=== PATIENT | male | born 1930 | race Caucasian/White ===

== ENCOUNTER 2017-04-27 16:47 | Emergency (ER) | payer MEDICARE, BC ==
--- NOTE | 2017-04-27 18:14 | EDM.PDOC ---
ED HPI GENERAL MEDICAL PROBLEM - General Chief Complaint: Cardiovascular Problem Stated Complaint: dizziness Time Seen by Provider: 04/27/17 17:00 Source of Information: Reports: Patient History Limitations: Reports: No Limitations - History of Present Illness INITIAL COMMENTS - FREE TEXT/NARRATIVE: According to patient, he was at gas station today evening to pickup some water softener. When he felt dizzy. He describes that he felt things going blurry for just less than a minute and felt discomfort in his left chest, there was mild dull pain and it resolve. No palpitations, no shortness of breath. No fever or chills. No cough.As patient does have history of heart disease and is having pacemaker, came into the emergency room to be evaluated. Presently he is not feeling dizzy or having any chest pain. he claims he feels fine. Pt claims that he had similar episode of dizziness yesterday when he was standing and was very transient. Onset: Today Onset Date: 04/27/17 Onset Time: 16:30 Severity: Mild Improves with: Reports: None Worsens with: Reports: None Associated Symptoms: Reports: Chest Pain. Denies: Confusion, Cough, Diaphoresis , Fever/Chills, Headaches, Nausea/Vomiting, Rash, Seizure, Shortness of Breath, Syncope, Weakness - Related Data Allergies Allergy/AdvReac Type Severity Reaction Status Date / Time No Known Allergies Allergy Verified 12/16/15 14:23 Home Meds: Home Meds Metoprolol Tartrate [Lopressor] 50 mg PO BID 10/08/14 [History] amLODIPine Besylate [Amlodipine Besylate] 5 mg PO DAILY 10/08/14 [History] Aspirin [Ecotrin] 81 mg PO DAILY 11/04/15 [History] Tamsulosin [Flomax] 0.4 mg PO DAILY 11/04/15 [History] Past Medical History HEENT History: Reports: Impaired Vision Cardiovascular History: Reports: Hypertension, Pacemaker Respiratory History: Reports: None Other Gastrointestinal History: Cholescystitis Genitourinary History: Reports: Retention, Urinary, UTI, Recurrent Other Genitourinary History: Cystitis Musculoskeletal History: Reports: RA Oncologic (Cancer) History: Reports: None - Infectious Disease History Infectious Disease History: Reports: Chicken Pox, Measles, Mumps - Past Surgical History Other HEENT Surgeries/Procedures: Occular Lens Implant x2. hearing well per patient Cardiovascular Surgical History: Reports: Pacer Other Cardiovascular Surgeries/Procedures: pacemaker noted GI Surgical History: Reports: Cholecystectomy Male Surgical History: Reports: None Musculoskeletal Surgical History: Reports: None Social & Family History - Family History Family Medical History: Noncontributory - Tobacco Use Smoking Status *Q: Never Smoker Years of Tobacco use: 20 Second Hand Smoke Exposure: No - Alcohol Use Days Per Week of Alcohol Use: 3 Number of Drinks Per Day: 3 Total Drinks Per Week: 9 - Recreational Drug Use Recreational Drug Use: No - Living Situation & Occupation Living situation: Reports: Occupation: Retired ED ROS GENERAL - Review of Systems Review Of Systems: See Below Constitutional: Denies: Fever, Chills HEENT: Denies: Rhinitis, Sinus Problem, Throat Pain Respiratory: Denies: Shortness of Breath, Wheezing, Pleuritic Chest Pain, Cough , Sputum Cardiovascular: Reports: Chest Pain, Lightheadedness. Denies: Edema, Syncope GI/Abdominal: Denies: Abdominal Pain, Nausea, Vomiting : Denies: Dysuria, Flank Pain Musculoskeletal: Denies: Shoulder Pain, Arm Pain, Back Pain, Joint Pain, Joint Swelling Skin: Denies: Bruising, Pruritis, Rash, Erythema ED EXAM, GENERAL - Physical Exam Exam: See Below Exam Limited By: No Limitations General Appearance: Alert, WD/WN, No Apparent Distress Eye Exam: Bilateral Eye: EOMI, PERRL Ears: Normal External Exam, Normal Canal, Hearing Grossly Normal, Normal TMs Ear Exam: Bilateral Ear: Auricle Normal, Canal Normal, TM normal Nose: Normal Inspection, Normal Mucosa, No Blood Throat/Mouth: Normal Inspection, Normal Lips, Normal Teeth, Normal Gums, Normal Oropharynx, Normal Voice, No Airway Compromise Head: Atraumatic, Normocephalic Neck: Normal Inspection, Supple, Non-Tender, Full Range of Motion Respiratory/Chest: No Respiratory Distress, Lungs Clear, Normal Breath Sounds, No Accessory Muscle Use, Chest Non-Tender Cardiovascular: Normal Peripheral Pulses, Regular Rate, Rhythm, No Edema, No Gallop, No JVD, No Murmur, No Rub GI/Abdominal: Normal Bowel Sounds, Soft, Non-Tender, No Organomegaly, No Distention, No Abnormal Bruit, No Mass Extremities: Normal Inspection, Normal Range of Motion, Non-Tender, Normal Capillary Refill, No Pedal Edema Neurological: Alert, Oriented, CN II-XII Intact, Normal Cognition, Normal Gait, Normal Reflexes, No Motor/Sensory Deficits EKG INTERPRETATION EKG Date: 04/27/17 Rhythm: Other (Paced rhythm. rate between 60-70) EKG Interpretation Comments: Pt in pace rhythm rate between 60-70 Course - Vital Signs Text/Narrative:: Pt's EKG shows normal paced rhythm with heart rate between 60-70 beats. His CBC is normal. Troponin is negative.His Chest Xray is stable. CMP is normal. His D- dimer is 1060. Pt does not feel shortness of breath and does not have pleuritic chest pain nor in any discomfort presently. 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 Spouse claims they know about it. Pt claims he will be going to [place] in few days and his caving guide is down in [place]. Copy of CT given to patient and followup with his caving guide. Pt reassured that his short spell of dizziness could be slight drop in blood pressure.All his workup is negative. Last Recorded V/S: Last Vital Signs Temp 97 F 04/27/17 18:29 Pulse 97 04/27/17 18:29 Resp 16 04/27/17 18:29 BP 132/87 04/27/17 18:29 Pulse Ox 100 04/27/17 18:29 - Orders/Labs/Meds Orders: Active Orders 24 hr Category Date Time Status Chest 1V Frontal [CR] Stat Exams 04/27/17 16:50 Ordered Chest w Cont [CT] Stat Exams 04/27/17 18:00 Taken Labs: Laboratory Tests 04/27/17 04/27/17 04/27/17 Range/Units 17:00 17:00 17:00 WBC 9.7 (4.0-11.0) K/uL RBC 5.32 (4.50-6.50) M/uL Hgb 16.3 (13.0-18.0) g/dL Hct 46.6 (40.0-54.0) % MCV 88 (76-96) fL MCH 30.6 (27.0-32.0) pg MCHC 35.0 (31.0-35.0) g/dL RDW 12.6 (11.0-16.0) % Plt Count 223 (150-400) K/uL MPV 10.1 H (6.0-10.0) fL Neut % (Auto) 52.9 (45.0-70.0) % Lymph % (Auto) 34.0 (20.0-40.0) % [place] % (Auto) 11.6 H (3.0-10.0) % Eos % (Auto) 1.1 (1.0-5.0) % Baso % (Auto) 0.4 (0.0-0.5) % Neut # (Auto) 5.13 (2.00-7.50) K/uL Lymph # (Auto) 3.29 (1.50-4.00) K/uL [place] # (Auto) 1.12 H (0.20-0.80) K/uL Eos # (Auto) 0.11 (0.04-0.40) K/uL Baso # (Auto) 0.04 (0.02-0.10) K/uL PT 10.2 (9.0-11.5) sec INR 1.0 (1.0-3.5) D-Dimer, Quantitative (0-400) ng/mL Sodium 140 (136-145) mmol/L Potassium 3.7 (3.5-5.1) mmol/L Chloride 104 (98-107) mmol/L Carbon Dioxide 25.4 (21.0-32.0) mmol/L Anion Gap 14.3 (5.0-15.0) mmol/L BUN 21 (8-26) mg/dL Creatinine 1.19 (0.70-1.30) mg/dL Est Cr Clr Drug Dosing TNP Estimated GFR (MDRD) 58 L (>60) MLS/MIN BUN/Creatinine Ratio 17.6 (6-25) Glucose 140 H (74-100) mg/dL Calcium 9.2 (8.5-10.1) mg/dL Total Bilirubin 0.4 D (0.0-1.0) mg/dL AST 20 (15-37) U/L ALT 24 (12-78) U/L Alkaline Phosphatase 106 (46-116) U/L Troponin I (0.000-0.060) ng/mL Total Protein 6.7 (6.4-8.2) g/dL Albumin 3.4 (3.4-5.0) g/dL Globulin 3.3 (2.2-4.2) g/dL Albumin/Globulin Ratio 1.0 (0.8-2.0) 04/27/17 04/27/17 Range/Units 17:00 17:00 WBC (4.0-11.0) K/uL RBC (4.50-6.50) M/uL Hgb (13.0-18.0) g/dL Hct (40.0-54.0) % MCV (76-96) fL MCH (27.0-32.0) pg MCHC (31.0-35.0) g/dL RDW (11.0-16.0) % Plt Count (150-400) K/uL MPV (6.0-10.0) fL Neut % (Auto) (45.0-70.0) % Lymph % (Auto) (20.0-40.0) % [place] % (Auto) (3.0-10.0) % Eos % (Auto) (1.0-5.0) % Baso % (Auto) (0.0-0.5) % Neut # (Auto) (2.00-7.50) K/uL Lymph # (Auto) (1.50-4.00) K/uL [place] # (Auto) (0.20-0.80) K/uL Eos # (Auto) (0.04-0.40) K/uL Baso # (Auto) (0.02-0.10) K/uL PT (9.0-11.5) sec INR (1.0-3.5) D-Dimer, Quantitative 1060 H (0-400) ng/mL Sodium (136-145) mmol/L Potassium (3.5-5.1) mmol/L Chloride (98-107) mmol/L Carbon Dioxide (21.0-32.0) mmol/L Anion Gap (5.0-15.0) mmol/L BUN (8-26) mg/dL Creatinine (0.70-1.30) mg/dL Est Cr Clr Drug Dosing Estimated GFR (MDRD) (>60) MLS/MIN BUN/Creatinine Ratio (6-25) Glucose (74-100) mg/dL Calcium (8.5-10.1) mg/dL Total Bilirubin (0.0-1.0) mg/dL AST (15-37) U/L ALT (12-78) U/L Alkaline Phosphatase (46-116) U/L Troponin I < 0.017 (0.000-0.060) ng/mL Total Protein (6.4-8.2) g/dL Albumin (3.4-5.0) g/dL Globulin (2.2-4.2) g/dL Albumin/Globulin Ratio (0.8-2.0) Departure - Departure Time of Disposition: 21:40 Disposition: Home, Self-Care 01 Condition: Fair Clinical Impression: Dizziness Referrals: PCP,None [Primary Care Provider] - Forms: ED Department Discharge Care Plan Goals: If dizziness occurs, drink water and sit down. If no relief in 4 minutes then return to physician or ER. - Problem List & Annotations (1) Dizziness SNOMED Code(s): 637730454 Code(s): R42 - DIZZINESS AND GIDDINESS Status: Acute - Problem List Review Problem List Initiated/Reviewed/Updated: Yes - My Orders Last 24 Hours: My Active Orders 04/27/17 18:00 Chest w Cont [CT] Stat - Assessment/Plan Last 24 Hours: My Active Orders 04/27/17 18:00 Chest w Cont [CT] Stat Assessment:: Dizziness Plan: Pt's EKG shows normal paced rhythm with heart rate between 60-70 beats. His CBC is normal. Troponin is negative.His Chest Xray is stable. CMP is normal. His D- dimer is 1060. Pt does not feel shortness of breath and does not have pleuritic chest pain nor in any discomfort presently. 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 Spouse claims they know about it. Pt claims he will be going to [place] in few days and his caving guide is down in [place]. Copy of CT given to patient and followup with his caving guide. Pt reassured that his short spell of dizziness could be slight drop in blood pressure.All his workup is negative.
[2017-04-27 18:33] VITALS: BP 132/87
--- NOTE | 2017-04-27 22:58 | ER ---
HISTORY OF PRESENT ILLNESS: An 86-year-old male, who comes to the emergency room with complaints of dizziness that just happened this afternoon and occasional left shoulder discomfort. The patient denies any pain at this time while at rest and states that he feels fine now that he is lying down. He has not had any complaints of chest pain. He has not been nauseated. The patient has not been running a fever. He states that he has been feeling good. He does have a pacemaker. PAST MEDICAL HISTORY: Includes history of syncope, pyelonephritis, and heart arrhythmias. OBJECTIVE: GENERAL APPEARANCE: The patient is awake and alert. In no obvious distress. VITAL SIGNS: His initial vital signs are normal. LUNGS: Clear with a somewhat reduced air exchange throughout the lung acuna. CARDIAC: Heart sounds are distinct with an irregular rate. HEENT: Oral mucous membranes are slightly dry. SKIN: Warm and dry. ABDOMEN: Soft and nontender. INITIAL WORKUP: monitor car operator shows an irregular beat. I am wondering if his pacemaker is working properly. EKG was obtained. There is no sign of ST elevation. The patient's pulse has been ranging from the 40s to 80s while being observed. Further tests include CBC, CMP, troponin, D-dimer, and a PT/INR. We will also get a PA chest x-ray. ASSESSMENT AND PLAN: At this point, my shift is ending. I did consult with Dr. Saucedo, who will assume care for this patient. For further details, refer to Dr. Saucedo's dictation. WORKING DIAGNOSIS: Dizziness, rule out coronary etiology. CRS/MODL /[id number]
[2017-04-29] MEDS ORDERED: Sodium Chloride 0.9% 10 ML Syringe FLUSH PRN (09:07)
--- NOTE | 2017-04-29 11:57 | CT ---
DATE OF SERVICE: 04/27/17 CLINICAL DATA: Elevated D-dimer with chest pain ENHANCED CHEST CT Multislice acquisition through the chest with IV contrast was performed. No priors. No evidence of PE. No pneumothorax. No pleural effusions. No aortic aneurysm. There are mild atelectatic changes in the dependent portion of both lungs and in both lung bases. There are mild emphysematous changes throughout both lungs. The lungs are otherwise clear. The heart is mildly enlarged. No pericardial effusion. There are coronary artery calcifications. No hilar or mediastinal adenopathy. There is mural thickening within the distal esophagus. Esophagitis should be considered. The patient is status post cholecystectomy. No other significant findings. [id number] [facility]
--- NOTE | 2017-04-30 14:21 | CR ---
DATE OF SERVICE: 04/27/17 CLINICAL DATA: dizziness. AP CHEST No priors. There is a cardiac pacer overlying the left chest and the distal pacer wires are in the region of the right atrium and right ventricle. The heart size is normal. The aorta is ectatic. There are minimal atelectatic changes in the left lung base. The lungs are otherwise clear. No pneumothorax. No pleural effusions. No other significant findings. [id number] [facility]
== END 2017-04-27 19:15 | disposition home or self-care (01) ==
LOC: LB.ED 16:47
DX: R42 Dizziness and giddiness (principal); I71.2 Thoracic aortic aneurysm, without rupture; I10 Essential (primary) hypertension; Z79.82 Long term (current) use of aspirin
CPT/HCPCS: 36415; 71010; 71260; 80053; 84484; 85025; 85379; 85610; 93005; 99284-25; 99285

== ENCOUNTER 2017-04-28 15:55 | Emergency (ER) | payer MEDICARE, BC ==
[2017-04-28] MEDS ORDERED: Sodium Chloride 0.9% 1,000 ML IV SCH (16:00)
[2017-04-28] MEDS ORDERED: Amiodarone 450 MG/9 ML SDV IV ONE (17:12)
[2017-04-28] MEDS ORDERED: Heparin Sodium 5,000 UNITS/0.5 ML Syringe IVPUSH ONE (17:15)
[2017-04-28] MEDS ORDERED: Heparin Sodium/D5W 25,000 UNITS/500 ML BAG IV SCH (17:15)
[2017-04-28] MEDS ORDERED: Clopidogrel 75 MG Tab PO ONE (17:17)
[2017-04-28] MEDS ORDERED: Aspirin 81 MG Tab.Chew PO ONE (17:17)
--- NOTE | 2017-04-28 17:26 | EDM.PDOC ---
ED HPI GENERAL MEDICAL PROBLEM - General Chief Complaint: Cardiovascular Problem Stated Complaint: syncope Time Seen by Provider: 04/28/17 16:20 Source of Information: Reports: Family History Limitations: Reports: No Limitations - History of Present Illness INITIAL COMMENTS - FREE TEXT/NARRATIVE: Pt's spouse is giving the hisotry. Pt was sitting in his chair today afternoon and siddenly started to take few deep breaths and following which he went limp for just few seconds and then was awake. When she started to ask him if anything was wrond with him, pt appered very confused. When she tried to shake him, we got more alert and told her he was fine. And since then he has been feeling fine. On questioning patient he claims that he feels fine. it is the similar short episode of dizziness he got today, like the one he had yesterday. Last for less than a minute an goes away. Pt was seen for the same reason last evening. Had compelte cardaic workup including CBC, CMP, EKG and troponins. His EKG was in paced rhythm of 60-70 heart rate. He had no symptoms all through the emergency room period. His D- Dimer was [address] angio of chest was done which was negative. He was reassured an sent home. Today, apparently I was in the emergency rom with in 60 seconds of nurse call. 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 He geovanni perfusing pulse and blood pressure. I was almost ready to start amiodarone and patient came out of the rhythm and was back in paced rhythm. He did this 2 times. Labs were ordered. Onset: Today Severity: Mild Associated Symptoms: Reports: Confusion, Syncope (near syncope episode). Denies : Chest Pain, Cough, Diaphoresis, Fever/Chills, Headaches, Loss of Appetite, Malaise, Nausea/Vomiting, Rash, Seizure, Shortness of Breath, Weakness - Related Data Allergies Allergy/AdvReac Type Severity Reaction Status Date / Time No Known Allergies Allergy Verified 04/28/17 16:05 Home Meds: Home Meds Metoprolol Tartrate [Lopressor] 50 mg PO BID 10/08/14 [History] amLODIPine Besylate [Amlodipine Besylate] 5 mg PO DAILY 10/08/14 [History] Aspirin [Ecotrin] 81 mg PO DAILY 11/04/15 [History] Tamsulosin [Flomax] 0.4 mg PO DAILY 11/04/15 [History] Past Medical History HEENT History: Reports: Impaired Vision Cardiovascular History: Reports: Hypertension, Pacemaker Respiratory History: Reports: None Other Gastrointestinal History: Cholescystitis Genitourinary History: Reports: Retention, Urinary, UTI, Recurrent Other Genitourinary History: Cystitis Musculoskeletal History: Reports: RA Oncologic (Cancer) History: Reports: None - Infectious Disease History Infectious Disease History: Reports: Chicken Pox, Measles, Mumps - Past Surgical History Other HEENT Surgeries/Procedures: Occular Lens Implant x2. hearing well per patient Cardiovascular Surgical History: Reports: Pacer Other Cardiovascular Surgeries/Procedures: pacemaker noted GI Surgical History: Reports: Cholecystectomy Male Surgical History: Reports: None Musculoskeletal Surgical History: Reports: None Social & Family History - Family History Family Medical History: Noncontributory - Tobacco Use Smoking Status *Q: Never Smoker Years of Tobacco use: 20 Second Hand Smoke Exposure: No - Caffeine Use Caffeine Use: Reports: Soda - Alcohol Use Days Per Week of Alcohol Use: 3 Number of Drinks Per Day: 3 Total Drinks Per Week: 9 - Recreational Drug Use Recreational Drug Use: No - Living Situation & Occupation Living situation: Reports: Occupation: Retired ED ROS GENERAL - Review of Systems Review Of Systems: See Below Constitutional: Denies: Fever, Chills, Weakness, Fatigue, Diaphoresis, Decreased Appetite, Weight Loss HEENT: Denies: Rhinitis, Sinus Problem, Throat Pain, Throat Swelling Respiratory: Denies: Shortness of Breath, Wheezing, Cough, Sputum Cardiovascular: Denies: Chest Pain, Lightheadedness GI/Abdominal: Denies: Abdominal Pain, Constipation, Diarrhea, Nausea, Vomiting : Denies: Dysuria, Flank Pain, Urgency Musculoskeletal: Denies: Shoulder Pain, Joint Pain, Joint Swelling Skin: Denies: Bruising, Pruritis, Rash Neurological: Reports: Confusion, Dizziness. Denies: Headache, Numbness, Paresthesia, Tingling, Tremors, Trouble Speaking, Difficulty Walking, Weakness ED EXAM, GENERAL - Physical Exam Exam: See Below Exam Limited By: No Limitations General Appearance: Alert, WD/WN, No Apparent Distress Eye Exam: Bilateral Eye: EOMI, PERRL Ears: Normal External Exam Ear Exam: Bilateral Ear: Auricle Normal, Canal Normal, TM normal Nose: Normal Inspection, Normal Mucosa, No Blood Throat/Mouth: Normal Inspection, Normal Lips, Normal Teeth, Normal Gums, Normal Oropharynx, Normal Voice, No Airway Compromise Head: Atraumatic, Normocephalic Neck: Normal Inspection, Supple, Non-Tender, Full Range of Motion Respiratory/Chest: No Respiratory Distress, Lungs Clear, Normal Breath Sounds, No Accessory Muscle Use, Chest Non-Tender Cardiovascular: Normal Peripheral Pulses, No Edema, No Gallop, No JVD, No Murmur , No Rub, Other (strong peripheral pusles regular) Peripheral Pulses: 2+: Carotid (L), Carotid (R), Radial (L), Radial (R), Dorsalis Pedis (L), Dorsalis Pedis (R) GI/Abdominal: Normal Bowel Sounds, Soft, Non-Tender, No Organomegaly, No Distention, No Abnormal Bruit, No Mass Extremities: Normal Inspection, Normal Range of Motion, Non-Tender, Normal Capillary Refill, No Pedal Edema Neurological: Alert, Oriented Psychiatric: Normal Affect, Normal Mood Skin Exam: Warm, Intact EKG INTERPRETATION EKG Date: 04/28/17 EKG Interpretation Comments: VT at 170 rate. Second EKG in paced rhythm Course - Vital Signs Text/Narrative:: Pt was seen for the same reason last evening. Had complete cardiac workup including CBC, CMP, EKG and troponins. His EKG was in paced rhythm of 60-70 heart rate. He had no symptoms all through the emergency room period yesterday. His D-Dimer was [address] angio of chest was done which was negative. He was reassured an sent home. Today, apparently I was in the emergency room with in 60 seconds of nurse call. Pt was alert and not in any distress, but his school lunch monitor showed Monomorphic ventricular tacchycardia. He was started on oxygen at 2 litres/ min.He had perfusing pulse and blood pressure. I was almost ready to start amiodarone and patient came out of VT and was back in paced rhythm. He did this 2 times. Labs were ordered.When patient went into sustained monomorphic ventricular Tacchycardia the third time I did start patient on amiodarone drip.From patient's history it does appear like he has had near syncope episode today' I did call [facility] and discuss patient with , the syrup maker pets and pet supplies salesperson.Per his recommendation did repeat EKG when he is not in [place]. Pt is in paced rhythm. Dr. Nolasco advised to treat patient as if he has had STEMI. Pt did receive chewable aspirin 324mg orally. Bolused with 4000units heparin followed by 1000units /hr maintenance.Also he has received 600mg of plavix orally. Pt is stable and symptomatic in the emergency room. His labs are reassuring and his troponin is negative. Pt will be transferred to [facility] emergency room by [facility]. Pt is hemodynamically stable at the time of transfer Last Recorded V/S: Last Vital Signs Temp Pulse Resp BP 118/74 04/28/17 17:15 Pulse Ox - Orders/Labs/Meds Orders: Active Orders 24 hr Category Date Time Status EKG Documentation Completion [RC] ASDIRECTED Care 04/28/17 16:31 Ordered Oxygen Therapy [RC] ASDIRECTED Care 04/28/17 17:17 Ordered Amiodarone [Cordarone] 150 mg Med 04/28/17 17:30 Active Dextrose 5% in Water 100 ml IV .BOLUS Heparin Sodium/D5W [Heparin 25,000 Units in D5W 500 ML] Med 04/28/17 17:15 Ordered 25,000 units in 500 ml IV TITRATE Medication Orders Heparin Sodium/Dextrose (Heparin 25,000 Units In D5w 500 Ml) 25,000 units in 500 mls @ 20 mls/hr IV TITRATE JACQUELYN; 1,000 UNITS/HR PRN Reason: Protocol Last Admin: 04/28/17 17:15 Dose: 1,000 units/hr, 20 mls/hr Amiodarone HCl 150 mg/ (Dextrose/Water) 103 mls @ 600 mls/hr IV .BOLUS JACQUELYN Last Admin: 04/28/17 17:10 Dose: 600 mls/hr Labs: Laboratory Tests 04/28/17 04/28/17 04/28/17 Range/Units 16:39 16:39 16:39 WBC 7.3 D (4.0-11.0) K/uL RBC 5.11 (4.50-6.50) M/uL Hgb 15.7 (13.0-18.0) g/dL Hct 45.2 (40.0-54.0) % MCV 89 (76-96) fL MCH 30.7 (27.0-32.0) pg MCHC 34.7 (31.0-35.0) g/dL RDW 12.6 (11.0-16.0) % Plt Count 207 (150-400) K/uL MPV 10.0 (6.0-10.0) fL Neut % (Auto) 50.5 (45.0-70.0) % Lymph % (Auto) 36.9 (20.0-40.0) % [place] % (Auto) 10.1 H (3.0-10.0) % Eos % (Auto) 1.8 (1.0-5.0) % Baso % (Auto) 0.7 H (0.0-0.5) % Neut # (Auto) 3.70 (2.00-7.50) K/uL Lymph # (Auto) 2.70 (1.50-4.00) K/uL [place] # (Auto) 0.74 (0.20-0.80) K/uL Eos # (Auto) 0.13 (0.04-0.40) K/uL Baso # (Auto) 0.05 (0.02-0.10) K/uL PT 10.4 (9.0-11.5) sec INR 1.1 (1.0-3.5) APTT 24.7 L (27.0-35.0) SECONDS Sodium 138 (136-145) mmol/L Potassium 3.7 (3.5-5.1) mmol/L Chloride 102 (98-107) mmol/L Carbon Dioxide 27.7 (21.0-32.0) mmol/L Anion Gap 12.0 (5.0-15.0) mmol/L BUN 16 D (8-26) mg/dL Creatinine 1.27 (0.70-1.30) mg/dL Est Cr Clr Drug Dosing TNP Estimated GFR (MDRD) 54 L (>60) MLS/MIN BUN/Creatinine Ratio 12.6 (6-25) Glucose 115 H (74-100) mg/dL Calcium 8.6 (8.5-10.1) mg/dL Total Bilirubin 0.6 D (0.0-1.0) mg/dL AST 49 H (15-37) U/L ALT 36 (12-78) U/L Alkaline Phosphatase 91 (46-116) U/L Troponin I < 0.017 (0.000-0.060) ng/mL Total Protein 6.6 (6.4-8.2) g/dL Albumin 3.4 (3.4-5.0) g/dL Globulin 3.2 (2.2-4.2) g/dL Albumin/Globulin Ratio 1.1 (0.8-2.0) Meds: Medications Generic Name Dose Route Start Last Admin Trade Name Freq PRN Reason Stop Dose Admin Heparin Sodium/Dextrose 25,000 units in 500 mls @ 20 mls/hr 04/28/17 17:15 17:15 Heparin 25,000 Units In D5w 500 Ml IV 1,000 units/hr TITRATE JACQUELYN 20 mls/hr Protocol Administration 1,000 UNITS/HR Amiodarone HCl 150 mg/ 103 mls @ 600 mls/hr 04/28/17 17:30 04/28/17 17:10 Dextrose/Water IV 600 mls/hr .BOLUS JACQUELYN Administration Discontinued Medications Generic Name Dose Route Start Last Admin Trade Name Freq PRN Reason Stop Dose Admin Amiodarone HCl Confirm 04/28/17 17:12 04/28/17 17:15 Cordarone Administered 04/28/17 17:13 450 mg Dose Administration 450 mg IV .STK-MED ONE Aspirin 324 mg 04/28/17 17:17 04/28/17 17:05 Aspirin PO 04/28/17 17:18 324 mg ONETIME ONE Administration Clopidogrel Bisulfate 600 mg 04/28/17 17:17 04/28/17 17:10 Plavix PO 04/28/17 17:18 600 mg ONETIME ONE Administration Heparin Sodium (Porcine) 4,000 units 04/28/17 17:15 04/28/17 17:12 Heparin Sodium IVPUSH 04/28/17 17:16 4,000 units ONETIME ONE Administration Departure - Departure Time of Disposition: 18:05 Disposition: DC/Tfer to Acute Hospital 02 Reason for Transfer *Q: Other (Further evaluation for the cause of Ventricular tachycardai) Condition: Fair Clinical Impression: Ventricular tachycardia Referrals: PCP,None [Primary Care Provider] - Forms: ED Department Discharge - Problem List & Annotations (1) Dizziness SNOMED Code(s): 102439570 Code(s): R42 - DIZZINESS AND GIDDINESS Status: Acute Current Visit: No (2) Ventricular tachycardia SNOMED Code(s): 80403423 Code(s): I47.2 - VENTRICULAR TACHYCARDIA Status: Acute Current Visit: Yes - Problem List Review Problem List Initiated/Reviewed/Updated: Yes - My Orders Last 24 Hours: My Active Orders 04/28/17 16:31 EKG Documentation Completion [RC] ASDIRECTED 04/28/17 17:15 Heparin Sodium/D5W [Heparin 25,000 Units in D5W 500 ML] 25,000 units in 500 ml IV TITRATE 04/28/17 17:17 Oxygen Therapy [RC] ASDIRECTED 04/28/17 17:30 Amiodarone [Cordarone] 150 mg Dextrose 5% in Water 100 ml IV .BOLUS - Assessment/Plan Last 24 Hours: My Active Orders 04/28/17 16:31 EKG Documentation Completion [RC] ASDIRECTED 04/28/17 17:15 Heparin Sodium/D5W [Heparin 25,000 Units in D5W 500 ML] 25,000 units in 500 ml IV TITRATE 04/28/17 17:17 Oxygen Therapy [RC] ASDIRECTED 04/28/17 17:30 Amiodarone [Cordarone] 150 mg Dextrose 5% in Water 100 ml IV .BOLUS Assessment:: Monomorphic Ventricular tacchycardia. Plan: Pt was seen for the same reason last evening. Had complete cardiac workup including CBC, CMP, EKG and troponins. His EKG was in paced rhythm of 60-70 heart rate. He had no symptoms all through the emergency room period yesterday. His D-Dimer was [address] angio of chest was done which was negative. He was reassured an sent home. Today, apparently I was in the emergency room with in 60 seconds of nurse call. Pt was alert and not in any distress, but his school lunch monitor showed Monomorphic ventricular tacchycardia. He was started on oxygen at 2 litres/ min.He had perfusing pulse and blood pressure. I was almost ready to start amiodarone and patient came out of VT and was back in paced rhythm. He did this 2 times. Labs were ordered.When patient went into sustained monomorphic ventricular Tacchycardia the third time I did start patient on amiodarone drip.From patient's history it does appear like he has had near syncope episode today' I did call [facility] and discuss patient with , the syrup maker pets and pet supplies salesperson.Per his recommendation did repeat EKG when he is not in VT. Pt is in paced rhythm. Dr. Nolasco advised to treat patient as if he has had STEMI. Pt did receive chewable aspirin 324mg orally. Bolused with 4000units heparin followed by 1000units /hr maintenance.Also he has received 600mg of plavix orally. Pt is stable and symptomatic in the emergency room. His labs are reassuring and his troponin is negative. Pt will be transferred to [facility] emergency room by [facility]. Pt is hemodynamically stable at the time of transfer. Further care per Dr. Nolasco.
[2017-04-28] MEDS ORDERED: Amiodarone 150 MG in Dextrose 5% in Water 100 ML IV SCH ×2 (17:30)
[2017-04-28 19:38] VITALS: BP 111/66
[2017-04-29] MEDS ORDERED: Sodium Chloride 0.9% 10 ML Syringe FLUSH PRN (08:03)
== END 2017-04-28 20:15 ==
LOC: LB.ED 15:55
DX: I47.2 Ventricular tachycardia (principal); I10 Essential (primary) hypertension; Z79.899 Other long term (current) drug therapy
CPT/HCPCS: 36415; 80053; 84484; 85025; 85610; 85730; 93005; 96365; 96375; 99285; A0425; A0429; A9270; J0282; J1644; J7040; J7060

== ENCOUNTER 2017-05-27 15:32 | Emergency (ER) | payer MEDICARE, BC ==
[2017-05-27] MEDS ORDERED: Amiodarone 150 MG in Dextrose 5% in Water 100 ML IV SCH ×2 (16:00)
--- NOTE | 2017-05-27 17:00 | EDM.PDOC ---
ED HPI GENERAL MEDICAL PROBLEM - General Time Seen by Provider: 05/27/17 15:35 Source of Information: Reports: Patient History Limitations: Reports: No Limitations - History of Present Illness INITIAL COMMENTS - FREE TEXT/NARRATIVE: Pt was brought in to the emergency room by his . According to patient he was sitting in the house and had a little cough, and soon started to have chest pain over the precardium and the pain was radiating to his left arm. Pain lasted for about 5 minutes and resolved, but he started to feel very dizzy and weak. No nausea or vomiting. no diaphoresis. No fever or chills. No wheezing or SOB. Pt has triple vessel stent placement with Biventricular ICD with pacemaker placement doen 2 wks ago. Onset: Today Onset Date: 05/27/17 Onset Time: 15:15 Location: Reports: Chest Quality: Reports: Ache Severity: Mild Associated Symptoms: Reports: Chest Pain, Weakness. Denies: Confusion, Cough, Diaphoresis, Fever/Chills, Headaches, Malaise, Nausea/Vomiting, Rash, Seizure, Shortness of Breath, Syncope - Related Data Allergies Allergy/AdvReac Type Severity Reaction Status Date / Time No Known Allergies Allergy Verified 04/28/17 16:05 Home Meds: Home Meds Metoprolol Tartrate [Lopressor] 50 mg PO BID 10/08/14 [History] amLODIPine Besylate [Amlodipine Besylate] 5 mg PO DAILY 10/08/14 [History] Aspirin [Ecotrin] 81 mg PO DAILY 11/04/15 [History] Tamsulosin [Flomax] 0.4 mg PO DAILY 11/04/15 [History] Past Medical History HEENT History: Reports: Impaired Vision Cardiovascular History: Reports: Hypertension, Pacemaker Respiratory History: Reports: None Other Gastrointestinal History: Cholescystitis Genitourinary History: Reports: Retention, Urinary, UTI, Recurrent Other Genitourinary History: Cystitis Musculoskeletal History: Reports: RA Oncologic (Cancer) History: Reports: None - Infectious Disease History Infectious Disease History: Reports: Chicken Pox, Measles, Mumps - Past Surgical History Other HEENT Surgeries/Procedures: Occular Lens Implant x2. hearing well per patient Cardiovascular Surgical History: Reports: Pacer Other Cardiovascular Surgeries/Procedures: pacemaker noted GI Surgical History: Reports: Cholecystectomy Male Surgical History: Reports: None Musculoskeletal Surgical History: Reports: None Social & Family History - Family History Family Medical History: Noncontributory - Tobacco Use Smoking Status *Q: Never Smoker Years of Tobacco use: 20 Second Hand Smoke Exposure: No - Caffeine Use Caffeine Use: Reports: Soda - Alcohol Use Days Per Week of Alcohol Use: 3 Number of Drinks Per Day: 3 Total Drinks Per Week: 9 - Recreational Drug Use Recreational Drug Use: No - Living Situation & Occupation Living situation: Reports: Occupation: Retired ED ROS GENERAL - Review of Systems Review Of Systems: See Below Constitutional: Reports: Weakness. Denies: Fever, Chills, Malaise HEENT: Denies: Contact Lenses, Nose Pain, Rhinitis, Throat Pain, Throat Swelling Respiratory: Denies: Shortness of Breath, Wheezing, Pleuritic Chest Pain, Cough , Sputum Cardiovascular: Reports: Chest Pain. Denies: Lightheadedness GI/Abdominal: Denies: Abdominal Pain, Constipation, Diarrhea, Nausea, Vomiting : Denies: Dysuria, Flank Pain, Urgency, Urinary Retention Musculoskeletal: Denies: Joint Pain, Joint Swelling Skin: Denies: Pruritis, Rash ED EXAM, GENERAL - Physical Exam Exam: See Below Exam Limited By: No Limitations General Appearance: Alert, WD/WN, No Apparent Distress, Other (appears lethargic ) Eye Exam: Bilateral Eye: EOMI, PERRL Ears: Normal External Exam, Normal Canal, Hearing Grossly Normal, Normal TMs Ear Exam: Bilateral Ear: TM normal Nose: Normal Inspection, Normal Mucosa, No Blood Throat/Mouth: Normal Inspection, Normal Lips, Normal Teeth, Normal Gums, Normal Oropharynx, Normal Voice, No Airway Compromise Head: Atraumatic, Normocephalic Neck: Normal Inspection, Supple, Non-Tender, Full Range of Motion Respiratory/Chest: No Respiratory Distress, Lungs Clear, Normal Breath Sounds, No Accessory Muscle Use, Chest Non-Tender Cardiovascular: Normal Peripheral Pulses, Regular Rate, Rhythm, No Edema, No Gallop, No JVD, No Murmur, No Rub GI/Abdominal: Normal Bowel Sounds, Soft, Non-Tender, No Organomegaly, No Distention, No Abnormal Bruit, No Mass Extremities: Normal Inspection, Normal Range of Motion, Non-Tender, Normal Capillary Refill, No Pedal Edema Neurological: Alert, Oriented, Normal Cognition Skin Exam: Warm, Intact EKG INTERPRETATION EKG Date: 05/27/17 EKG Interpretation Comments: Pt is in monomorphic Ventricular Tachycardia rate of 154 Course - Vital Signs Text/Narrative:: Pt did walk into the emergency room. He c/o weakness. He was placed on property assessment monitor and he was in Ventricular Tachycardia at rate of 150s. Labs were ordered. EKG done shows V Tach. IV was started. I did order Amiodarone Bolus 300mg BRYCE.As patient recently had Cardiac workup from [facility], I did call [facility] and discuss patient with Dr. Keating the senior data quality analyst contact center associate. As we were talking, pt's BP did drop to 74/49mmhg and started to pass out and his breathing stopped. At which point, we did put the Pads on patient for cardioversion. under Guidance of Dr. Keating, we did synchonised cardioversion with 200 joules. Pt rhythm did convert to paced rhythm with a rate of 60s. His Blood pressure did improve to 90/64mmhg and than to 114/74mmhg. Pt was awake and alert spontaneously.Repeat EKG shows paced rhythm. At this point he was started on amiodarone drip. Also Normal 1 litre was bolus through the procedure. Pt's has clinically improved. Pt' CBC. CMP. PT and PTT are normal. Also his first troponin is negative. Air ambulance has been called. Also [facility] has bed available for patient. Accepting physician is . Pt is on amiodarone drip presently maintaining his vitals stable. pt is hemodyanmically stable at the time of transfer. Further care per . - Orders/Labs/Meds Orders: Active Orders 24 hr Category Date Time Status EKG Documentation Completion [RC] ASDIRECTED Care 05/27/17 15:59 Active Chest 1V Frontal [CR] Stat Exams 05/27/17 Taken Amiodarone [Cordarone] 150 mg Med 05/27/17 16:00 Active Dextrose 5% in Water 100 ml IV .BOLUS Amiodarone [Cordarone] 450 mg Med 05/27/17 16:15 Active Dextrose 5% in Water 241 ml IV ASDIRECTED Medication Orders Amiodarone HCl 150 mg/ (Dextrose/Water) 103 mls @ 600 mls/hr IV .BOLUS JACQUELYN Amiodarone HCl 450 mg/ (Dextrose/Water) 250 mls @ 33.33 mls/hr IV ASDIRECTED JACQUELYN; 1 MG/MIN PRN Reason: Protocol Labs: Laboratory Tests 05/27/17 05/27/17 05/27/17 Range/Units 16:05 16:05 16:05 WBC 10.1 D (4.0-11.0) K/uL RBC 4.30 L (4.50-6.50) M/uL Hgb 12.6 L (13.0-18.0) g/dL Hct 37.6 L (40.0-54.0) % MCV 87 (76-96) fL MCH 29.3 (27.0-32.0) pg MCHC 33.5 (31.0-35.0) g/dL RDW 13.0 (11.0-16.0) % Plt Count 266 D (150-400) K/uL MPV 10.1 H (6.0-10.0) fL Neut % (Auto) 58.7 (45.0-70.0) % Lymph % (Auto) 20.8 (20.0-40.0) % Starr % (Auto) 15.3 H (3.0-10.0) % Eos % (Auto) 4.4 (1.0-5.0) % Baso % (Auto) 0.8 H (0.0-0.5) % Neut # (Auto) 5.95 (2.00-7.50) K/uL Lymph # (Auto) 2.11 (1.50-4.00) K/uL Starr # (Auto) 1.55 H (0.20-0.80) K/uL Eos # (Auto) 0.45 H (0.04-0.40) K/uL Baso # (Auto) 0.08 (0.02-0.10) K/uL PT 11.0 (9.0-11.5) sec INR 1.1 (1.0-3.5) APTT 25.6 L (27.0-35.0) SECONDS Sodium 136 (136-145) mmol/L Potassium 4.4 (3.5-5.1) mmol/L Chloride 102 (98-107) mmol/L Carbon Dioxide 24.3 (21.0-32.0) mmol/L Anion Gap 14.1 (5.0-15.0) mmol/L BUN 19 (8-26) mg/dL Creatinine 1.52 H (0.70-1.30) mg/dL Est Cr Clr Drug Dosing TNP Estimated GFR (MDRD) 44 L (>60) MLS/MIN BUN/Creatinine Ratio 12.5 (6-25) Glucose 197 H D (74-100) mg/dL Calcium 8.6 (8.5-10.1) mg/dL Total Bilirubin 0.7 (0.0-1.0) mg/dL AST 27 (15-37) U/L ALT 28 (12-78) U/L Alkaline Phosphatase 98 (46-116) U/L Troponin I < 0.017 (0.000-0.060) ng/mL Total Protein 6.5 (6.4-8.2) g/dL Albumin 2.9 L (3.4-5.0) g/dL Globulin 3.6 (2.2-4.2) g/dL Albumin/Globulin Ratio 0.8 (0.8-2.0) Meds: Medications Generic Name Dose Route Start Last Admin Trade Name Freq PRN Reason Stop Dose Admin Amiodarone HCl 150 mg/ 103 mls @ 600 mls/hr 05/27/17 16:00 Dextrose/Water IV .BOLUS JACQUELYN Amiodarone HCl 450 mg/ 250 mls @ 33.33 mls/hr 05/27/17 16:15 Dextrose/Water IV ASDIRECTED JACQUELYN Protocol 1 MG/MIN Departure - Departure Time of Disposition: 17:50 Disposition: DC/Tfer to Acute Hospital 02 Condition: Fair Clinical Impression: Ventricular tachycardia - Discharge Information Referrals: PCP,None [Primary Care Provider] - - Problem List & Annotations (1) Ventricular tachycardia SNOMED Code(s): 41599669 Code(s): I47.2 - VENTRICULAR TACHYCARDIA Status: Acute Current Visit: Yes - Problem List Review Problem List Initiated/Reviewed/Updated: Yes - My Orders Last 24 Hours: My Active Orders 05/27/17 Chest 1V Frontal [CR] Stat 05/27/17 15:59 EKG Documentation Completion [RC] ASDIRECTED 05/27/17 16:00 Amiodarone [Cordarone] 150 mg Dextrose 5% in Water 100 ml IV .BOLUS 05/27/17 16:15 Amiodarone [Cordarone] 450 mg Dextrose 5% in Water 241 ml IV ASDIRECTED - Assessment/Plan Last 24 Hours: My Active Orders 05/27/17 Chest 1V Frontal [CR] Stat 05/27/17 15:59 EKG Documentation Completion [RC] ASDIRECTED 05/27/17 16:00 Amiodarone [Cordarone] 150 mg Dextrose 5% in Water 100 ml IV .BOLUS 05/27/17 16:15 Amiodarone [Cordarone] 450 mg Dextrose 5% in Water 241 ml IV ASDIRECTED Assessment:: Ventricular tachycardia Plan: Pt did walk into the emergency room. He c/o weakness. He was placed on property assessment monitor and he was in Ventricular Tachycardia at rate of 150s. Labs were ordered. EKG done shows V Tach. IV was started. I did order Amiodarone Bolus 300mg BRYCE.As patient recently had Cardiac workup from [facility], I did call [facility] and discuss patient with Dr. Keating the senior data quality analyst contact center associate. As we were talking, pt's BP did drop to 74/49mmhg and started to pass out and his breathing stopped. At which point, we did put the Pads on patient for cardioversion. under Guidance of Dr. Keating, we did synchonised cardioversion with 200 joules. Pt rhythm did convert to paced rhythm with a rate of 60s. His Blood pressure did improve to 90/64mmhg and than to 114/74mmhg. Pt was awake and alert spontaneously.Repeat EKG shows paced rhythm. At this point he was started on amiodarone drip. Also Normal 1 litre was bolus through the procedure. Pt's has clinically improved. Pt' CBC. CMP. PT and PTT are normal. Also his first troponin is negative. Air ambulance has been called. Also [facility] has bed available for patient. Accepting physician is . Pt is on amiodarone drip presently maintaining his vitals stable. pt is hemodyanmically stable at the time of transfer. Further care per .
[2017-05-27] MEDS ORDERED: 5% Dextrose in Water 250 ML Bag ONE (17:30)
[2017-05-27] MEDS ORDERED: Amiodarone 150 MG/3 ML SDV ONE ×2 (17:30)
--- NOTE | 2017-05-27 23:24 | CR ---
DATE OF SERVICE: 05/27/2017 CLINICAL DATA: CHEST PAIN. AP PORTABLE CHEST: Comparison is made to a prior exam dated 04/27/2017. The patient has taken a poor inspiration. There is a cardiac pacer overlying the left chest with the distal pacer wires in the region of the right atrium and right ventricle. The heart is enlarged. The aorta is ectatic. There are mild atelectatic changes in both lung bases. The lungs are otherwise clear. No other significant findings. [id number] [facility]
== END 2017-05-27 17:45 ==
LOC: LB.ED 15:32
DX: I47.2 Ventricular tachycardia (principal); I10 Essential (primary) hypertension; Z79.82 Long term (current) use of aspirin; Z79.899 Other long term (current) drug therapy; Z95.0 Presence of cardiac pacemaker
CPT/HCPCS: 71010; 80053; 84484; 85025; 85610; 85730; 92960; 93005; 99285; A0425; A0429; J0282; J7040; J7060; A0888

== ENCOUNTER 2017-09-12 09:52 | Emergency (ER) | payer MEDICARE, BC ==
--- NOTE | 2017-09-12 12:37 | ER ---
DATE OF SERVICE: 09/12/2017 HISTORY OF PRESENT ILLNESS: This 87-year-old male came in by ambulance after a syncopal episode at home. He is awake upon arriving in the emergency room. He tells me that he was walking over to sit down in a chair when he suddenly became weak and the next thing he knew, he woke up on the floor. Family members tell me that he slumped into his easy chair. They helped him to the floor. They did not detect a pulse or any breathing activity for up to approximately one minute. Then he started to cough and have some deep breaths and he returned to consciousness and has been doing better since. Upon arriving to the emergency room, the patient denies any chest pain. He denies any chest pressure. He denies any shortness of breath. He denies any neck pain or headache. He denies any visual changes. The patient does not feel nauseated or have an upset stomach. He tells me that he feels slightly weak and he has for the last couple of days, but otherwise he feels okay. PAST MEDICAL HISTORY: Includes coronary artery disease, the patient has status post stent placement x3. He also has a pacemaker/defibrillator that was upgraded at [facility]. The patient has had multiple syncopal episodes since May. He did go to [place] for part of the winter and was hospitalized once the end of July and again 1 week later, the first part of August for the same type of syncopal episodes. Pt has history of V-Tach. The patient's primary care provider is Dr. Saucedo. He does have a journalism instructor in [place] is Dr. Nolasco, who he last saw on September 04, 2017. OBJECTIVE: GENERAL APPEARANCE: The patient is awake, he is alert. He answers questions appropriately. Again, he denies any type of pain and he is in no respiratory distress. VITAL SIGNS: Reviewed. The patient's initial blood pressure is 130/72. LUNGS : Clear with slightly reduced air exchange. CARDIAC: Heart sounds distinct. S1, S2 present with the rate of around 80 per minute. ABDOMEN: Soft and nontender. SKIN: Warm and dry. HEENT: Oral mucous membranes moist. EKG was obtained showing some PVCs, otherwise normal sinus rhythm with a ventricular rate in the 80s. Second EKG had a ventricular rate in the mid 70s. LABORATORY DATA: Labs today include a CBC which is normal. Comprehensive metabolic panel is also largely unremarkable. Potassium level is normal. Blood glucose 129, BUN 29, creatinine 1.38. Troponin level is normal. DIAGNOSIS: Syncopal episode with history of the same due to cardiac arrhythmias. TREATMENT PLAN: I did consult with the journalism instructor on-call at [facility] in [place] with Dr. Howell, who accepted the patient for further evaluation. He will be transferred by [facility]. Dr. Garrison is also going to be admitting the patient as the hospitalist. The patient has been stable since he arrived to our facility with no recurrent symptoms. CRS/MODL /[id number] MTDD
[2017-09-12 13:34] VITALS: BP 119/72
--- NOTE | 2017-09-12 20:03 | CR ---
DATE OF SERVICE: 09/12/2017 CLINICAL DATA: Syncopal episode. PORTABLE CHEST: Comparison is made to a prior exam dated 06/29/2017. The heart is enlarged. The cardiac pacer and pacer wires remain unchanged in position. There is also a stimulator device overlying the left chest. The aorta is ectatic. There are minimal atelectatic changes in the left lung base. The lungs are otherwise clear. No pneumothorax. No pleural effusions. [id number] MTDD
== END 2017-09-12 12:35 ==
LOC: LB.ED 09:52
DX: R55 Syncope and collapse (principal); I49.9 Cardiac arrhythmia, unspecified; I25.10 Atherosclerotic heart disease of native coronary artery without angina pectoris
CPT/HCPCS: 36415; 71045; 80053; 84484; 85025; 93005; 99285-25; A0425; A0429

== ENCOUNTER 2017-09-15 09:53 | Emergency (ER) | payer MEDICARE, BC ==
[2017-09-15 11:09] VITALS: BP 119/67
[2017-09-15] MEDS ORDERED: Furosemide 20 MG Tab PO PRN (12:13)
[2017-09-15] MEDS ORDERED: Silver Nitrate Applicator Each ONE (12:30)
--- NOTE | 2017-09-15 12:40 | EDM.PDOC ---
ED HPI GENERAL MEDICAL PROBLEM - General Stated Complaint: Heart Issues Time Seen by Provider: 09/15/17 11:00 Source of Information: Reports: Patient, Family History Limitations: Reports: No Limitations - History of Present Illness INITIAL COMMENTS - FREE TEXT/NARRATIVE: Patient is an 87 year old man who has a history of multiple cardiac issues which have necessitated his use of Xarelto and Plavix. This morning when he awoke, he and his noticed that his pad and underpants were soaked in blood. He has no pain on urination but he has a history of UTI that caused sepsis. He also has no fever or chills or other complaints. Onset: Today, Gradual Onset Date: 09/15/17 Onset Time: 08:00 Duration: Hour(s): (4), Constant Location: Reports: Pelvis (Groin and scrotal area.) Quality: Reports: Other (No pain.) Severity: Mild Improves with: Reports: None Worsens with: Reports: None Context: Reports: Other (Patient is on blood thinners and he also has had many urological procedures.) Associated Symptoms: Reports: No Other Symptoms - Related Data Allergies Allergy/AdvReac Type Severity Reaction Status Date / Time No Known Allergies Allergy Verified 09/12/17 12:55 Home Meds: Home Meds Metoprolol Tartrate [Lopressor] 100 mg PO DAILY 10/08/14 [History] Tamsulosin [Flomax] 0.4 mg PO DAILY 11/04/15 [History] Amiodarone [Cordarone] 200 mg PO BID 09/12/17 [History] Clopidogrel [Plavix] 75 mg PO DAILY 09/12/17 [History] Escitalopram [Lexapro] 10 mg PO DAILY 09/12/17 [History] Furosemide [Lasix] 40 mg PO DAILY 09/12/17 [History] Nitroglycerin [Nitrostat] 0.4 mg SL ASDIRECTED 09/12/17 [History] Potassium Chloride 20 meq PO DAILY 09/12/17 [History] Rivaroxaban [Xarelto] 15 mg PO DAILY 09/12/17 [History] atorvaSTATin [Lipitor] 40 mg PO QPM 09/12/17 [History] Past Medical History HEENT History: Reports: Impaired Vision Cardiovascular History: Reports: Automatic Implantable Cardioverter Defibrillators, Heart Failure, Hypertension, Pacemaker Respiratory History: Reports: None Other Gastrointestinal History: Cholescystitis Genitourinary History: Reports: Retention, Urinary, UTI, Recurrent Other Genitourinary History: Cystitis Musculoskeletal History: Reports: RA Psychiatric History: Reports: Depression Oncologic (Cancer) History: Reports: None Dermatologic History: Reports: Other (See Below) Other Dermatologic History: severly dry, scaly skin - Infectious Disease History Infectious Disease History: Reports: Chicken Pox, Measles, Mumps - Past Surgical History Other HEENT Surgeries/Procedures: Occular Lens Implant x2. hearing well per patient Cardiovascular Surgical History: Reports: AICD, Pacer Other Cardiovascular Surgeries/Procedures: pacemaker noted GI Surgical History: Reports: Cholecystectomy Male Surgical History: Reports: None Musculoskeletal Surgical History: Reports: None Social & Family History - Family History Family Medical History: Noncontributory - Tobacco Use Smoking Status *Q: Never Smoker Years of Tobacco use: 20 Second Hand Smoke Exposure: No - Caffeine Use Caffeine Use: Reports: Soda - Alcohol Use Days Per Week of Alcohol Use: 3 Number of Drinks Per Day: 3 Total Drinks Per Week: 9 - Recreational Drug Use Recreational Drug Use: No - Living Situation & Occupation Living situation: Reports: Occupation: Retired ED ROS GENERAL - Review of Systems Review Of Systems: See Below Constitutional: Reports: No Symptoms HEENT: Reports: No Symptoms Respiratory: Reports: No Symptoms Cardiovascular: Reports: No Symptoms Endocrine: Reports: No Symptoms GI/Abdominal: Reports: No Symptoms : Reports: Other (Blood in underpants from penile/scrotal area.) Musculoskeletal: Reports: No Symptoms Skin: Reports: No Symptoms Neurological: Reports: No Symptoms Psychiatric: Reports: No Symptoms Hematologic/Lymphatic: Reports: No Symptoms Immunologic: Reports: No Symptoms ED EXAM, RENAL/ - Physical Exam Exam: See Below Exam Limited By: No Limitations General Appearance: Alert, WD/WN, No Apparent Distress Eye Exam: Bilateral Eye: EOMI, Normal Fundi, Normal Inspection, PERRL Ears: Normal External Exam, Normal Canal, Hearing Grossly Normal, Normal TMs Nose: Normal Inspection, Normal Mucosa, No Blood Throat/Mouth: Normal Inspection, Normal Lips, Normal Teeth, Normal Gums, Normal Oropharynx, Normal Voice, No Airway Compromise Head: Atraumatic, Normocephalic Neck: Normal Inspection Respiratory/Chest: No Respiratory Distress, Lungs Clear, Normal Breath Sounds, No Accessory Muscle Use, Chest Non-Tender Cardiovascular: Normal Peripheral Pulses, Regular Rate, Rhythm, No Edema, No Gallop, No JVD, No Murmur, No Rub GI/Abdominal: Normal Bowel Sounds, Soft, Non-Tender, No Organomegaly, No Distention, No Abnormal Bruit, No Mass (Male) Exam: Other (Bleeding is from 2 small scrotal abrasions.) Back Exam: Normal Inspection, Full Range of Motion, NT Extremities: Normal Inspection Neurological: Alert, Oriented, CN II-XII Intact, Normal Cognition, Normal Gait, Normal Reflexes, No Motor/Sensory Deficits Psychiatric: Normal Affect Skin Exam: Warm, Dry, Intact, Normal Color, No Rash Course - Vital Signs Text/Narrative:: Uneventful ED course. We put Surgicel on the abrasions, which stopped the bleeding. We then covered it with a piece of fabric tape and the bleeding was stopped. He will follow up in 2 days with PCP to see if he needs any further testing or treatments. Last Recorded V/S: Last Vital Signs Temp 36.6 C 09/15/17 11:08 Pulse 65 09/15/17 11:08 Resp 16 09/15/17 11:08 BP 119/67 09/15/17 11:08 Pulse Ox 95 09/15/17 11:08 - Orders/Labs/Meds Orders: Active Orders 24 hr Category Date Time Status UA W/MICROSCOPIC [URIN] Stat Lab 09/15/17 11:51 Ordered Furosemide [Lasix] Med 09/15/17 12:13 Active 20 mg PO DAILY PRN Medication Orders Furosemide (Lasix) 20 mg PO DAILY PRN PRN Reason: Dyspnea Labs: Laboratory Tests 09/15/17 09/15/17 09/15/17 Range/Units 11:11 11:11 11:11 WBC 7.4 (4.0-11.0) K/uL RBC 4.40 L (4.50-6.50) M/uL Hgb 12.4 L (13.0-18.0) g/dL Hct 37.5 L (40.0-54.0) % MCV 85 (76-96) fL MCH 28.2 (27.0-32.0) pg MCHC 33.1 (31.0-35.0) g/dL RDW 16.6 H (11.0-16.0) % Plt Count 201 (150-400) K/uL MPV 10.5 H (6.0-10.0) fL Neut % (Auto) 66.7 (45.0-70.0) % Lymph % (Auto) 19.3 L (20.0-40.0) % [place] % (Auto) 11.3 H (3.0-10.0) % Eos % (Auto) 2.4 (1.0-5.0) % Baso % (Auto) 0.3 (0.0-0.5) % Neut # (Auto) 4.94 (2.00-7.50) K/uL Lymph # (Auto) 1.43 L (1.50-4.00) K/uL [place] # (Auto) 0.84 H (0.20-0.80) K/uL Eos # (Auto) 0.18 (0.04-0.40) K/uL Baso # (Auto) 0.02 (0.02-0.10) K/uL PT 14.8 H D (9.0-11.5) sec INR 1.5 D (1.0-3.5) Sodium 142 (136-145) mmol/L Potassium 4.4 (3.5-5.1) mmol/L Chloride 105 (98-107) mmol/L Carbon Dioxide 24.9 (21.0-32.0) mmol/L Anion Gap 16.5 H (5.0-15.0) mmol/L BUN 30 H (8-26) mg/dL Creatinine 1.68 H D (0.70-1.30) mg/dL Est Cr Clr Drug Dosing 36.70 mL/min Estimated GFR (MDRD) 39 L (>60) MLS/MIN BUN/Creatinine Ratio 17.9 (6-25) Glucose 124 H (74-100) mg/dL Calcium 8.7 (8.5-10.1) mg/dL Total Bilirubin 1.3 H D (0.0-1.0) mg/dL AST 31 (15-37) U/L ALT 36 (12-78) U/L Alkaline Phosphatase 135 H (46-116) U/L Total Protein 7.1 (6.4-8.2) g/dL Albumin 3.2 L (3.4-5.0) g/dL Globulin 3.9 (2.2-4.2) g/dL Albumin/Globulin Ratio 0.8 (0.8-2.0) Urine Color Urine Appearance (CLEAR) Urine pH (5.0-8.0) Ur Specific [place] (1.003-1.030) Urine Protein (NEGATIVE) mg/dL Urine Glucose (UA) (NEGATIVE) mg/dL Urine Ketones (NEGATIVE) mg/dL Urine Occult Blood (NEGATIVE) Urine Nitrite (NEGATIVE) Urine Bilirubin (NEGATIVE) Urine Urobilinogen (0.2-1.0) E.U./dL Ur Leukocyte Esterase (NEGATIVE) Urine RBC /HPF Urine WBC /HPF Ur Squamous Epith Cells /HPF Calcium Oxalate Crystal /HPF 09/15/17 Range/Units 11:16 WBC (4.0-11.0) K/uL RBC (4.50-6.50) M/uL Hgb (13.0-18.0) g/dL Hct (40.0-54.0) % MCV (76-96) fL MCH (27.0-32.0) pg MCHC (31.0-35.0) g/dL RDW (11.0-16.0) % Plt Count (150-400) K/uL MPV (6.0-10.0) fL Neut % (Auto) (45.0-70.0) % Lymph % (Auto) (20.0-40.0) % [place] % (Auto) (3.0-10.0) % Eos % (Auto) (1.0-5.0) % Baso % (Auto) (0.0-0.5) % Neut # (Auto) (2.00-7.50) K/uL Lymph # (Auto) (1.50-4.00) K/uL [place] # (Auto) (0.20-0.80) K/uL Eos # (Auto) (0.04-0.40) K/uL Baso # (Auto) (0.02-0.10) K/uL PT (9.0-11.5) sec INR (1.0-3.5) Sodium (136-145) mmol/L Potassium (3.5-5.1) mmol/L Chloride (98-107) mmol/L Carbon Dioxide (21.0-32.0) mmol/L Anion Gap (5.0-15.0) mmol/L BUN (8-26) mg/dL Creatinine (0.70-1.30) mg/dL Est Cr Clr Drug Dosing mL/min Estimated GFR (MDRD) (>60) MLS/MIN BUN/Creatinine Ratio (6-25) Glucose (74-100) mg/dL Calcium (8.5-10.1) mg/dL Total Bilirubin (0.0-1.0) mg/dL AST (15-37) U/L ALT (12-78) U/L Alkaline Phosphatase (46-116) U/L Total Protein (6.4-8.2) g/dL Albumin (3.4-5.0) g/dL Globulin (2.2-4.2) g/dL Albumin/Globulin Ratio (0.8-2.0) Urine Color Yellow Urine Appearance Clear (CLEAR) Urine pH 5.5 (5.0-8.0) Ur Specific [place] 1.020 (1.003-1.030) Urine Protein Negative (NEGATIVE) mg/dL Urine Glucose (UA) Negative (NEGATIVE) mg/dL Urine Ketones Negative (NEGATIVE) mg/dL Urine Occult Blood Negative (NEGATIVE) Urine Nitrite Negative (NEGATIVE) Urine Bilirubin Negative (NEGATIVE) Urine Urobilinogen 1.0 (0.2-1.0) E.U./dL Ur Leukocyte Esterase Negative (NEGATIVE) Urine RBC Not seen /HPF Urine WBC Not seen /HPF Ur Squamous Epith Cells Few /HPF Calcium Oxalate Crystal Moderate /HPF Meds: Medications Generic Name Dose Route Start Last Admin Trade Name Freq PRN Reason Stop Dose Admin Furosemide 20 mg 09/15/17 12:13 Lasix PO DAILY PRN Dyspnea Discontinued Medications Generic Name Dose Route Start Last Admin Trade Name Freq PRN Reason Stop Dose Admin Silver Nitrate Confirm 09/15/17 12:30 Silver Nitrate Administered 09/15/17 12:31 Dose 1 each .ROUTE .STK-MED ONE Departure - Departure Time of Disposition: 12:47 Disposition: Home, Self-Care 01 Condition: Good Clinical Impression: Multiple abrasions, Broken skin - Discharge Information Instructions: Scrotal Swelling Referrals: PCP,Unknown [Primary Care Provider] - - My Orders Last 24 Hours: My Active Orders 09/15/17 11:51 UA W/MICROSCOPIC [URIN] Stat 09/15/17 12:13 Furosemide [Lasix] 20 mg PO DAILY PRN - Assessment/Plan Last 24 Hours: My Active Orders 09/15/17 11:51 UA W/MICROSCOPIC [URIN] Stat 09/15/17 12:13 Furosemide [Lasix] 20 mg PO DAILY PRN
== END 2017-09-15 13:07 | disposition home or self-care (01) ==
LOC: LB.ED 09:53
DX: S30.813A Abrasion of scrotum and testes, initial encounter (principal); I11.0 Hypertensive heart disease with heart failure; I50.9 Heart failure, unspecified; F32.9 Major depressive disorder, single episode, unspecified; Z79.899 Other long term (current) drug therapy; Z87.440 Personal history of urinary (tract) infections; Z95.810 Presence of automatic (implantable) cardiac defibrillator; Z95.0 Presence of cardiac pacemaker; Z79.01 Long term (current) use of anticoagulants; Z90.49 Acquired absence of other specified parts of digestive tract; X58.XXXA Exposure to other specified factors, initial encounter
CPT/HCPCS: 36415; 80053; 81001; 85025; 85610; 99283; 99284

== ENCOUNTER 2017-09-27 19:41 | Inpatient (IN) | payer MEDICARE, BC ==
[2017-09-27] MEDS ORDERED: HYDROmorphone 2 MG/ML Syringe IVPUSH ONE (21:12)
[2017-09-27] MEDS ORDERED: HYDROmorphone 4 MG/ML Syringe ONE (21:18)
--- NOTE | 2017-09-27 21:23 | EDM.PDOC ---
ED HPI GENERAL MEDICAL PROBLEM - General Chief Complaint: General Stated Complaint: FELL AND HURT BACK Time Seen by Provider: 09/27/17 20:10 Source of Information: Reports: Patient, Family History Limitations: Reports: No Limitations - History of Present Illness INITIAL COMMENTS - FREE TEXT/NARRATIVE: This is an 87yo M with an extensive medical history here for a recent fall. It was an observed fall by the who was cooking. She noticed him get up and move with his walker then while walking fall sideways on the right side on an open floor without carpeting. He was unable to get up but was responsive and there was no loss of consciousness. He stated immediately after the fall that his hip and lower back hurt. He denies any head injury. Onset: Today Duration: Constant Location: Reports: Back, Pelvis, Upper Extremity, Right, Lower Extremity, Right Quality: Reports: Throbbing Severity: Moderate Improves with: Reports: None Worsens with: Reports: Movement Context: Reports: Other (fall) Associated Symptoms: Reports: No Other Symptoms Right Lower Hip Pain Score (Numeric/FACES): 8 - Related Data Allergies Allergy/AdvReac Type Severity Reaction Status Date / Time No Known Allergies Allergy Verified 09/12/17 12:55 Home Meds: Home Meds Metoprolol Tartrate [Lopressor] 100 mg PO DAILY 10/08/14 [History] Tamsulosin [Flomax] 0.4 mg PO DAILY 11/04/15 [History] Amiodarone [Cordarone] 200 mg PO DAILY 09/12/17 [History] Clopidogrel [Plavix] 75 mg PO DAILY 09/12/17 [History] Escitalopram [Lexapro] 10 mg PO DAILY 09/12/17 [History] Furosemide [Lasix] 40 mg PO DAILY 09/12/17 [History] Nitroglycerin [Nitrostat] 0.4 mg SL ASDIRECTED 09/12/17 [History] Potassium Chloride 20 meq PO DAILY 09/12/17 [History] Rivaroxaban [Xarelto] 15 mg PO DAILY 09/12/17 [History] atorvaSTATin [Lipitor] 40 mg PO QPM 09/12/17 [History] Past Medical History HEENT History: Reports: Impaired Vision Cardiovascular History: Reports: Automatic Implantable Cardioverter Defibrillators, Heart Failure, Hypertension, Pacemaker Respiratory History: Reports: None Other Gastrointestinal History: Cholescystitis Genitourinary History: Reports: Retention, Urinary, UTI, Recurrent Other Genitourinary History: Cystitis Musculoskeletal History: Reports: RA Psychiatric History: Reports: Depression Oncologic (Cancer) History: Reports: None Dermatologic History: Reports: Other (See Below) Other Dermatologic History: severly dry, scaly skin - Infectious Disease History Infectious Disease History: Reports: Chicken Pox, Measles, Mumps - Past Surgical History Other HEENT Surgeries/Procedures: Occular Lens Implant x2. hearing well per patient Cardiovascular Surgical History: Reports: AICD, Pacer Other Cardiovascular Surgeries/Procedures: pacemaker noted GI Surgical History: Reports: Cholecystectomy Male Surgical History: Reports: None Musculoskeletal Surgical History: Reports: None Social & Family History - Family History Family Medical History: Noncontributory - Tobacco Use Smoking Status *Q: Never Smoker Years of Tobacco use: 20 Second Hand Smoke Exposure: No - Caffeine Use Caffeine Use: Reports: Soda - Alcohol Use Days Per Week of Alcohol Use: 3 Number of Drinks Per Day: 3 Total Drinks Per Week: 9 - Recreational Drug Use Recreational Drug Use: No - Living Situation & Occupation Living situation: Reports: Occupation: Retired ED ROS GENERAL - Review of Systems Review Of Systems: ROS reveals no pertinent complaints other than HPI. ED EXAM, GENERAL - Physical Exam Exam: See Below Exam Limited By: No Limitations General Appearance: Alert, WD/WN, No Apparent Distress Eye Exam: Bilateral Eye: EOMI, PERRL Ears: Normal External Exam Nose: Normal Inspection Throat/Mouth: Normal Inspection Head: Atraumatic, Normocephalic Neck: Normal Inspection Respiratory/Chest: No Respiratory Distress, Lungs Clear, Normal Breath Sounds, No Accessory Muscle Use, Chest Non-Tender Cardiovascular: Normal Peripheral Pulses, Regular Rate, Rhythm Peripheral Pulses: 2+: Dorsalis Pedis (L), Dorsalis Pedis (R) GI/Abdominal: Normal Bowel Sounds Extremities: Arm Pain, Other (tenderness of the right hip, right shoulder, right knee, right side) Neurological: Alert, Disoriented (thought it was Sunday and 2016) Psychiatric: Normal Affect, Normal Mood Course - Vital Signs Last Recorded V/S: Last Vital Signs Temp 36.7 C 09/27/17 22:00 Pulse 65 09/27/17 22:00 Resp 20 09/27/17 22:00 BP 89/56 L 04/19/18 22:00 Pulse Ox 96 09/27/17 22:00 - Orders/Labs/Meds Orders: Active Orders 24 hr Category Date Time Status Cervical Spine wo Cont [CT] Stat Exams 09/27/17 20:22 Taken Knee 1V or 2V Rt [CR] Stat Exams 09/27/17 20:22 Taken Lumbar Spine wo Cont [CT] Stat Exams 09/27/17 20:22 Taken Pelvis wo Cont [CT] Stat Exams 09/27/17 20:22 Taken Shoulder Comp Rt [CR] Stat Exams 09/27/17 20:22 Taken Thoracic Spine wo Cont [CT] Stat Exams 09/27/17 20:22 Taken Labs: Laboratory Tests 09/27/17 09/27/17 Range/Units 21:05 21:09 WBC 8.9 D (4.0-11.0) K/uL RBC 4.01 L (4.50-6.50) M/uL Hgb 11.1 L (13.0-18.0) g/dL Hct 34.3 L (40.0-54.0) % MCV 86 (76-96) fL MCH 27.7 (27.0-32.0) pg MCHC 32.4 (31.0-35.0) g/dL RDW 16.1 H (11.0-16.0) % Plt Count 244 D (150-400) K/uL MPV 10.1 H (6.0-10.0) fL Neut % (Auto) 69.8 (45.0-70.0) % Lymph % (Auto) 15.4 L (20.0-40.0) % [place] % (Auto) 11.9 H (3.0-10.0) % Eos % (Auto) 2.6 (1.0-5.0) % Baso % (Auto) 0.3 (0.0-0.5) % Neut # (Auto) 6.24 (2.00-7.50) K/uL Lymph # (Auto) 1.38 L (1.50-4.00) K/uL [place] # (Auto) 1.06 H (0.20-0.80) K/uL Eos # (Auto) 0.23 (0.04-0.40) K/uL Baso # (Auto) 0.03 (0.02-0.10) K/uL Sodium 145 (136-145) mmol/L Potassium 3.9 (3.5-5.1) mmol/L Chloride 109 H (98-107) mmol/L Carbon Dioxide 27.0 (21.0-32.0) mmol/L Anion Gap 12.9 (5.0-15.0) mmol/L BUN 34 H (8-26) mg/dL Creatinine 1.74 H (0.70-1.30) mg/dL Est Cr Clr Drug Dosing TNP Estimated GFR (MDRD) 37 L (>60) MLS/MIN BUN/Creatinine Ratio 19.5 (6-25) Glucose 142 H (74-100) mg/dL Calcium 8.8 (8.5-10.1) mg/dL Total Bilirubin 0.7 D (0.0-1.0) mg/dL AST 63 H (15-37) U/L ALT 63 (12-78) U/L Alkaline Phosphatase 102 (46-116) U/L Troponin I < 0.017 (0.000-0.060) ng/mL Total Protein 6.4 (6.4-8.2) g/dL Albumin 2.5 L (3.4-5.0) g/dL Globulin 3.9 (2.2-4.2) g/dL Albumin/Globulin Ratio 0.6 L (0.8-2.0) Meds: Medications Discontinued Medications Generic Name Dose Route Start Last Admin Trade Name Freq PRN Reason Stop Dose Admin Hydromorphone HCl 0.5 mg 09/27/17 21:12 09/27/17 21:20 Dilaudid IVPUSH 09/27/17 21:13 0.5 mg ONETIME ONE Administration Hydromorphone HCl Confirm 09/27/17 21:18 09/27/17 21:24 Dilaudid Administered 09/27/17 21:19 Not Given Dose 4 mg .ROUTE .STK-MED ONE Departure - Departure Time of Disposition: 22:15 Disposition: Admitted As Inpatient 67 Condition: Fair Clinical Impression: Hematoma, Osteophyte of vertebrae, Fracture, Osteopenia of both hips, Retrolisthesis of vertebrae, Neuroforaminal stenosis of lumbar spine, Pain management, Weakness generalized, Decreased appetite Fall as cause of accidental injury at home as place of occurrence Qualifiers: Encounter type: initial encounter Qualified Code(s): W19.XXXA - Unspecified fall, initial encounter Fracture of sacrum Qualifiers: Encounter type: initial encounter Zone of sacrum fracture: zone I of sacrum Fracture type: closed Fracture alignment: nondisplaced Qualified Code(s): S32.110A - Nondisplaced Zone I fracture of sacrum, initial encounter for closed fracture Degenerative joint disease involving multiple joints Qualifiers: Osteoarthritis type: unspecified Qualified Code(s): M15.9 - Polyosteoarthritis , unspecified Anemia Qualifiers: Anemia type: unspecified type Qualified Code(s): D64.9 - Anemia, unspecified Chronic renal disease Qualifiers: Chronic kidney disease stage: stage 3 (moderate) Qualified Code(s): N18.3 - Chronic kidney disease, stage 3 (moderate) - Discharge Information Referrals: PCP,None [Primary Care Provider] - Forms: ED Department Discharge - Problem List & Annotations (1) Anemia SNOMED Code(s): 156719025 Code(s): D64.9 - ANEMIA, UNSPECIFIED Status: Chronic Priority: Medium Current Visit: Yes Qualifiers: Anemia type: unspecified type Qualified Code(s): D64.9 - Anemia, unspecified (2) Chronic renal disease SNOMED Code(s): 075074729 Code(s): N18.9 - CHRONIC KIDNEY DISEASE, UNSPECIFIED Status: Chronic Priority: Medium Current Visit: Yes Qualifiers: Chronic kidney disease stage: stage 3 (moderate) Qualified Code(s): N18.3 - Chronic kidney disease, stage 3 (moderate) (3) Decreased appetite SNOMED Code(s): 55415387 Code(s): R63.0 - ANOREXIA Status: Chronic Priority: High Current Visit : Yes (4) Degenerative joint disease involving multiple joints SNOMED Code(s): 073804563 Code(s): M15.9 - POLYOSTEOARTHRITIS, UNSPECIFIED Status: Chronic Priority : High Current Visit: Yes Qualifiers: Osteoarthritis type: unspecified Qualified Code(s): M15.9 - Polyosteoarthritis, unspecified (5) Fall as cause of accidental injury at home as place of occurrence SNOMED Code(s): 01709610 Code(s): W19.XXXA - UNSPECIFIED FALL, INITIAL ENCOUNTER; Y92.009 - UNSP PLACE IN UNSP NON-INSTITUT (PRIVATE) RESIDENCE PLACE Status: Acute Priority: High Current Visit: Yes Qualifiers: Encounter type: initial encounter Qualified Code(s): W19.XXXA - Unspecified fall, initial encounter; Y92.009 - Unspecified place in unspecified non-institutional (private) residence as the place of occurrence of the external cause (6) Fracture SNOMED Code(s): 143254275 Code(s): T14.8XXA - OTHER INJURY OF UNSPECIFIED BODY REGION, INITIAL ENCOUNTER Status: Acute Priority: High Current Visit: Yes (7) Fracture of sacrum SNOMED Code(s): 641829962 Code(s): S32.10XA - UNSP FRACTURE OF SACRUM, INIT ENCNTR FOR CLOSED FRACTURE Status: Acute Priority: High Current Visit: Yes Qualifiers: Encounter type: initial encounter Zone of sacrum fracture: zone I of sacrum Fracture type: closed Fracture alignment: nondisplaced Qualified Code(s): S32.110A - Nondisplaced Zone I fracture of sacrum, initial encounter for closed fracture (8) Hematoma SNOMED Code(s): 062275246 Code(s): T14.8XXA - OTHER INJURY OF UNSPECIFIED BODY REGION, INITIAL ENCOUNTER Status: Acute Priority: High Current Visit: Yes (9) Neuroforaminal stenosis of lumbar spine SNOMED Code(s): 118100708785, 479344632213 Code(s): M99.83 - OTHER BIOMECHANICAL LESIONS OF LUMBAR REGION Status: Acute Priority: High Current Visit: Yes (10) Osteopenia of both hips SNOMED Code(s): 245670391 Code(s): M85.851 - OTH DISRD OF BONE DENSITY AND STRUCTURE, RIGHT THIGH; M85.852 - OTH DISRD OF BONE DENSITY AND STRUCTURE, LEFT THIGH Status: Acute Priority: High Current Visit: Yes (11) Osteophyte of vertebrae SNOMED Code(s): 010525882 Code(s): M25.78 - OSTEOPHYTE, VERTEBRAE Status: Chronic Priority: Medium Current Visit: Yes (12) Pain management SNOMED Code(s): 962835066 Code(s): R52 - PAIN, UNSPECIFIED Status: Acute Priority: High Current Visit: Yes (13) Retrolisthesis of vertebrae SNOMED Code(s): 605540091 Code(s): M43.10 - SPONDYLOLISTHESIS, SITE UNSPECIFIED Status: Acute Priority: High Current Visit: Yes (14) Weakness generalized SNOMED Code(s): 83415606 Code(s): R53.1 - WEAKNESS Status: Acute Current Visit: Yes - Problem List Review Problem List Initiated/Reviewed/Updated: Yes - My Orders Last 24 Hours: My Active Orders 09/27/17 20:22 Cervical Spine wo Cont [CT] Stat Knee 1V or 2V Rt [CR] Stat Lumbar Spine wo Cont [CT] Stat Pelvis wo Cont [CT] Stat Shoulder Comp Rt [CR] Stat Thoracic Spine wo Cont [CT] Stat - Assessment/Plan Last 24 Hours: My Active Orders 09/27/17 20:22 Cervical Spine wo Cont [CT] Stat Knee 1V or 2V Rt [CR] Stat Lumbar Spine wo Cont [CT] Stat Pelvis wo Cont [CT] Stat Shoulder Comp Rt [CR] Stat Thoracic Spine wo Cont [CT] Stat Plan: Patient will be admitted for monitoring, pain management and re-evaluation in the am. We will continue with dilauded 0.5 mg q4 hrs prn with hold if BP is lower than 100/60. Continue all current medications and hold lasix if BP less than 100/60
[2017-09-27] MEDS: Sodium Chloride 0.9% 1,000 ML IV SCH (22:30)
[2017-09-27] MEDS ORDERED: Docusate Sodium 100 MG Cap PO PRN (22:36)
[2017-09-27] MEDS ORDERED: Nitroglycerin 0.4 MG Tab.SL SL SCH (22:45)
[2017-09-27] MEDS ORDERED: HYDROmorphone 2 MG/ML Syringe IVPUSH PRN (23:17)
[2017-09-28] MEDS ORDERED: HYDROmorphone 4 MG/ML Syringe ONE (06:33)
--- NOTE | 2017-09-28 09:09 | CR ---
DATE OF SERVICE: 09/27/17 CLINICAL DATA: fall RIGHT KNEE: There are tricompartment osteoarthritic changes of the knee joint with moderate narrowing of the medial compartment joint space. No acute fracture or dislocation. No focal lytic or blastic bone lesions. There is a small joint effusion. There are vascular calcifications in the soft tissues. [id number] [facility]
--- NOTE | 2017-09-28 09:11 | CR ---
DATE OF SERVICE: 09/27/17 CLINICAL DATA: fall RIGHT SHOULDER: There is soft tissue calcification in the subdeltoid region consistent with calcific tendinitis or bursitis. No acute fracture or dislocation. No focal lytic or blastic bone lesions. [id number] [facility]
--- NOTE | 2017-09-28 09:17 | CT ---
DATE OF SERVICE: 09/27/17 CLINICAL DATA: fall PELVIC CT: Multislice axial acquisition through the pelvis without IV or oral contrast was performed. Axial images and sagittal and coronal reformations are reviewed. There is an oblique lucency with a slight cortical step-off involving the S5 segment of the sacrum consistent with a minimally displaced fracture. No other fractures. There is a heterogeneous hyperdense collection adjacent to the right iliac wing that lies deep to the gluteus jaswinder muscle consistent with a large hematoma. It measures greater than 13 cm in its maximum dimension. The bladder is fluid-filled and appears normal. There are bilateral inguinal hernias containing fat. There are osteoarthritic changes involving the hip joints bilaterally. There are degenerative changes involving the symphysis pubis and SI joints. [id number] [facility]
[2017-09-28] MEDS: Tamsulosin 0.4 MG Cap.ER PO SCH (09:21)
--- NOTE | 2017-09-28 09:21 | CT ---
DATE OF SERVICE: 09/27/17 CLINICAL DATA: fall CERVICAL SPINE CT: Multislice axial acquisition was performed. Axial images and sagittal and coronal reformations are reviewed. The vertebral bodies are of average height and in good alignment. No acute fracture or dislocation. No focal lytic or blastic bone lesions. There is degenerative disc disease at multiple levels. There is facet joint hypertrophy throughout the cervical spine. The soft tissues are unremarkable. There is a fluid density structure in the middle cranial fossa on the left consistent with an arachnoid cyst. IMPRESSION: No acute abnormalities. [id number] [facility]
[2017-09-28] MEDS: Clopidogrel 75 MG Tab PO SCH (09:22)
[2017-09-28] MEDS: Potassium Chloride 20 MEQ Tab.ER PO SCH (09:22)
[2017-09-28] MEDS: Sodium Chloride 0.9% 1,000 ML IV SCH (09:23)
--- NOTE | 2017-09-28 09:25 | CT ---
DATE OF SERVICE: 09/27/17 CLINICAL DATA: fall THORACIC SPINE CT: Multislice axial acquisition was performed. Axial images and sagittal and coronal reformations are reviewed. The vertebral bodies are of average height and in good alignment. No acute fracture or dislocation. No lytic or blastic bone lesions. There is degenerative disc disease throughout the thoracic spine. There are small bilateral pleural effusions, right greater than left. There are atelectatic changes in the dependent portion of both lungs. There are bilateral renal cysts. IMPRESSION: No acute abnormalities. [id number] [facility]
--- NOTE | 2017-09-28 09:29 | CT ---
DATE OF SERVICE: 09/27/17 CLINICAL DATA: fall LUMBAR SPINE CT: Multislice axial acquisition was performed. Axial images and sagittal and coronal reformations are reviewed. There is a lucency through a large bridging osteophyte extending between L3 and L4 on the left consistent with a nondisplaced fracture. No other fractures. There is severe degenerative disc disease throughout the lumbar spine. There is retrolisthesis of L2 on L3 and of L3 on L4. There is facet joint hypertrophy throughout the lumbar spine. There are bilateral renal cysts. No other significant findings. [id number] [facility]
[2017-09-28] MEDS: Amiodarone 200 MG Tab PO SCH (09:35)
--- NOTE | 2017-09-28 10:07 | PCM.PN ---
- General Info Date of Service: 09/28/17 Subjective Update: Patient states his pain is under control. He denies any complaints or issues today. He has not moved from bed at this time but appears much more coherent and alert. Functional Status: Reports: Pain Controlled, Tolerating Diet - Review of Systems General: Reports: Weakness HEENT: Reports: No Symptoms Pulmonary: Reports: No Symptoms Cardiovascular: Reports: No Symptoms Gastrointestinal: Reports: No Symptoms Genitourinary: Reports: No Symptoms Musculoskeletal: Reports: Arm Pain, Back Pain, Leg Pain, Joint Pain Skin: Reports: No Symptoms Neurological: Reports: Weakness Psychiatric: Reports: No Symptoms - Patient Data Vitals - Most Recent: Last Vital Signs Temp 36.3 C 09/28/17 06:38 Pulse 65 09/28/17 06:38 Resp 20 09/28/17 06:38 BP 103/65 09/28/17 06:38 Pulse Ox 95 09/28/17 06:38 Weight - Most Recent: 92.533 kg I&O - Last 24 Hours: Intake & Output 09/27/17 09/28/17 09/28/17 22:59 06:59 14:59 Intake Total 900 Output Total 250 Balance 650 Lab Results Last 24 Hours: Laboratory Results - last 24 hr 09/27/17 09/27/17 Range/Units 21:05 21:09 WBC 8.9 D (4.0-11.0) K/uL RBC 4.01 L (4.50-6.50) M/uL Hgb 11.1 L (13.0-18.0) g/dL Hct 34.3 L (40.0-54.0) % MCV 86 (76-96) fL MCH 27.7 (27.0-32.0) pg MCHC 32.4 (31.0-35.0) g/dL RDW 16.1 H (11.0-16.0) % Plt Count 244 D (150-400) K/uL MPV 10.1 H (6.0-10.0) fL Neut % (Auto) 69.8 (45.0-70.0) % Lymph % (Auto) 15.4 L (20.0-40.0) % [place] % (Auto) 11.9 H (3.0-10.0) % Eos % (Auto) 2.6 (1.0-5.0) % Baso % (Auto) 0.3 (0.0-0.5) % Neut # (Auto) 6.24 (2.00-7.50) K/uL Lymph # (Auto) 1.38 L (1.50-4.00) K/uL [place] # (Auto) 1.06 H (0.20-0.80) K/uL Eos # (Auto) 0.23 (0.04-0.40) K/uL Baso # (Auto) 0.03 (0.02-0.10) K/uL Sodium 145 (136-145) mmol/L Potassium 3.9 (3.5-5.1) mmol/L Chloride 109 H (98-107) mmol/L Carbon Dioxide 27.0 (21.0-32.0) mmol/L Anion Gap 12.9 (5.0-15.0) mmol/L BUN 34 H (8-26) mg/dL Creatinine 1.74 H (0.70-1.30) mg/dL Est Cr Clr Drug Dosing TNP Estimated GFR (MDRD) 37 L (>60) MLS/MIN BUN/Creatinine Ratio 19.5 (6-25) Glucose 142 H (74-100) mg/dL Calcium 8.8 (8.5-10.1) mg/dL Total Bilirubin 0.7 D (0.0-1.0) mg/dL AST 63 H (15-37) U/L ALT 63 (12-78) U/L Alkaline Phosphatase 102 (46-116) U/L Troponin I < 0.017 (0.000-0.060) ng/mL Total Protein 6.4 (6.4-8.2) g/dL Albumin 2.5 L (3.4-5.0) g/dL Globulin 3.9 (2.2-4.2) g/dL Albumin/Globulin Ratio 0.6 L (0.8-2.0) Med Orders - Current: Current Medications Amiodarone HCl (Cordarone) 200 mg PO DAILY [facility] Atorvastatin Calcium (Lipitor) 40 mg PO QPM [facility] Clopidogrel Bisulfate (Plavix) 75 mg PO DAILY [facility] Last Admin: 09/28/17 09:22 Dose: 75 mg Docusate Sodium (Colace) 100 mg PO DAILY PRN PRN Reason: Constipation Furosemide (Lasix) 40 mg PO DAILY [facility] Sodium Chloride (Normal Saline) 1,000 mls @ 100 mls/hr IV ASDIRECTED [facility] Last Infusion: 09/28/17 09:24 Dose: 60 mls/hr Metoprolol Tartrate (Lopressor) 100 mg PO DAILY [facility] Nitroglycerin (Nitrostat) 0.4 mg SL ASDIRECTED [facility] Oxycodone HCl (Oxycodone) 5 mg PO Q4H PRN PRN Reason: Pain Potassium Chloride (Klor-Con M20) 20 meq PO DAILY [facility] Last Admin: 09/28/17 09:22 Dose: 20 meq Rivaroxaban (Xarelto) 15 mg PO WITHDINNER [facility] Tamsulosin HCl (Flomax) 0.4 mg PO DAILY [facility] Last Admin: 09/28/17 09:21 Dose: 0.4 mg Discontinued Medications Hydromorphone HCl (Dilaudid) 0.5 mg IVPUSH ONETIME ONE Stop: 09/27/17 21:13 Last Admin: 09/27/17 21:20 Dose: 0.5 mg Hydromorphone HCl (Dilaudid) Confirm Administered Dose 4 mg .ROUTE .STK-MED ONE Stop: 09/27/17 21:19 Last Admin: 09/27/17 21:24 Dose: Not Given Hydromorphone HCl (Dilaudid) 0.5 mg IVPUSH Q2H PRN PRN Reason: Pain Last Admin: 09/28/17 06:37 Dose: 0.5 mg Hydromorphone HCl (Dilaudid) Confirm Administered Dose 4 mg .ROUTE .STK-MED ONE Stop: 09/28/17 06:34 Last Admin: 09/28/17 06:37 Dose: Not Given - Exam General: Alert, Cooperative HEENT: Pupils Equal, Pupils Reactive, EOMI Neck: Supple Lungs: Clear to Auscultation, Normal Respiratory Effort Cardiovascular: Regular Rate, Regular Rhythm GI/Abdominal Exam: Normal Bowel Sounds Back Exam: Normal Inspection Extremities: Normal Inspection, Leg Pain Skin: Warm, Dry, Intact Neurological: No New Focal Deficit Psy/Mental Status: Alert, Normal Affect, Normal Mood - Problem List & Annotations (1) Anemia SNOMED Code(s): 036410921 Code(s): D64.9 - ANEMIA, UNSPECIFIED Status: Chronic Priority: Medium Current Visit: Yes Qualifiers: Anemia type: unspecified type Qualified Code(s): D64.9 - Anemia, unspecified (2) Chronic renal disease SNOMED Code(s): 266391954 Code(s): N18.9 - CHRONIC KIDNEY DISEASE, UNSPECIFIED Status: Chronic Priority: Medium Current Visit: Yes Qualifiers: Chronic kidney disease stage: stage 3 (moderate) Qualified Code(s): N18.3 - Chronic kidney disease, stage 3 (moderate) (3) Decreased appetite SNOMED Code(s): 17456466 Code(s): R63.0 - ANOREXIA Status: Chronic Priority: High Current Visit : Yes (4) Degenerative joint disease involving multiple joints SNOMED Code(s): 121685338 Code(s): M15.9 - POLYOSTEOARTHRITIS, UNSPECIFIED Status: Chronic Priority : High Current Visit: Yes Qualifiers: Osteoarthritis type: unspecified Qualified Code(s): M15.9 - Polyosteoarthritis, unspecified (5) Fall as cause of accidental injury at home as place of occurrence SNOMED Code(s): 72921688 Code(s): W19.XXXA - UNSPECIFIED FALL, INITIAL ENCOUNTER; Y92.009 - UNSP PLACE IN UNSP NON-INSTITUT (PRIVATE) RESIDENCE PLACE Status: Acute Priority: High Current Visit: Yes Qualifiers: Encounter type: initial encounter Qualified Code(s): W19.XXXA - Unspecified fall, initial encounter; Y92.009 - Unspecified place in unspecified non-institutional (private) residence as the place of occurrence of the external cause (6) Fracture SNOMED Code(s): 572088877 Code(s): T14.8XXA - OTHER INJURY OF UNSPECIFIED BODY REGION, INITIAL ENCOUNTER Status: Acute Priority: High Current Visit: Yes (7) Fracture of sacrum SNOMED Code(s): 088399699 Code(s): S32.10XA - UNSP FRACTURE OF SACRUM, INIT ENCNTR FOR CLOSED FRACTURE Status: Acute Priority: High Current Visit: Yes Qualifiers: Encounter type: initial encounter Zone of sacrum fracture: zone I of sacrum Fracture type: closed Fracture alignment: nondisplaced Qualified Code(s): S32.110A - Nondisplaced Zone I fracture of sacrum, initial encounter for closed fracture (8) Hematoma SNOMED Code(s): 938462191 Code(s): T14.8XXA - OTHER INJURY OF UNSPECIFIED BODY REGION, INITIAL ENCOUNTER Status: Acute Priority: High Current Visit: Yes (9) Neuroforaminal stenosis of lumbar spine SNOMED Code(s): 529902934753, 514919129486 Code(s): M99.83 - OTHER BIOMECHANICAL LESIONS OF LUMBAR REGION Status: Acute Priority: High Current Visit: Yes (10) Osteopenia of both hips SNOMED Code(s): 353271406 Code(s): M85.851 - OTH DISRD OF BONE DENSITY AND STRUCTURE, RIGHT THIGH; M85.852 - OTH DISRD OF BONE DENSITY AND STRUCTURE, LEFT THIGH Status: Acute Priority: High Current Visit: Yes (11) Osteophyte of vertebrae SNOMED Code(s): 371301428 Code(s): M25.78 - OSTEOPHYTE, VERTEBRAE Status: Chronic Priority: Medium Current Visit: Yes (12) Pain management SNOMED Code(s): 717447846 Code(s): R52 - PAIN, UNSPECIFIED Status: Acute Priority: High Current Visit: Yes (13) Retrolisthesis of vertebrae SNOMED Code(s): 753203833 Code(s): M43.10 - SPONDYLOLISTHESIS, SITE UNSPECIFIED Status: Acute Priority: High Current Visit: Yes (14) Weakness generalized SNOMED Code(s): 36406663 Code(s): R53.1 - WEAKNESS Status: Acute Current Visit: Yes - Problem List Review Problem List Initiated/Reviewed/Updated: Yes - My Orders Last 24 Hours: My Active Orders 09/27/17 22:00 Patient Status [ADT] Routine 09/27/17 22:36 Bedrest Bedside Commode [RC] ASDIRECTED Oxygen Therapy [RC] PRN Vital Signs [RC] Q4H Docusate Sodium [Colace] 100 mg PO DAILY PRN Resuscitation Status Routine 09/27/17 22:45 Nitroglycerin [Nitrostat] 0.4 mg SL ASDIRECTED 09/27/17 23:30 Sodium Chloride 0.9% [Normal Saline] 1,000 ml IV ASDIRECTED 09/28/17 08:00 Amiodarone [Cordarone] 200 mg PO DAILY Clopidogrel [Plavix] 75 mg PO DAILY Furosemide [Lasix] 40 mg PO DAILY Metoprolol Tartrate [Lopressor] 100 mg PO DAILY Potassium Chloride [Klor-Con M20] 20 meq PO DAILY Tamsulosin [Flomax] 0.4 mg PO DAILY 09/28/17 09:39 oxyCODONE 5 mg PO Q4H PRN 09/28/17 18:00 Rivaroxaban [Xarelto] 15 mg PO WITHDINNER 09/28/17 20:00 atorvaSTATin [Lipitor] 40 mg PO QPM - Plan Plan:: Continue pain management. We will continue current diet plan. Start PT/OT evaluation for gait, weakness, ADL's and mobility concerns. Dilaudid prn but change to oxycodone as first line pain medication. Signed out to Dr. Saucedo.
[2017-09-28] MEDS: Furosemide 40 MG Tab PO SCH (10:11)
[2017-09-28] MEDS ORDERED: HYDROmorphone 2 MG/ML Syringe IVPUSH PRN (10:12)
[2017-09-28] MEDS: Metoprolol Tartrate 50 MG Tab PO SCH (10:12)
[2017-09-28] MEDS: Rivaroxaban 10 MG Tab PO SCH (17:29)
[2017-09-28] MEDS: oxyCODONE 5 MG Tab PO PRN ×2 (18:00→22:07)
[2017-09-28] MEDS: atorvaSTATin 40 MG Tab PO SCH (20:04)
[2017-09-29] MEDS: Sodium Chloride 0.9% 1,000 ML IV SCH ×2 (01:34→04:42)
[2017-09-29] MEDS: oxyCODONE 5 MG Tab PO PRN ×2 (04:32→12:52)
[2017-09-29] MEDS: Clopidogrel 75 MG Tab PO SCH (07:58)
[2017-09-29] MEDS: Potassium Chloride 20 MEQ Tab.ER PO SCH (07:58)
[2017-09-29] MEDS: Amiodarone 200 MG Tab PO SCH (07:58)
[2017-09-29] MEDS: Tamsulosin 0.4 MG Cap.ER PO SCH (07:58)
--- NOTE | 2017-09-29 11:13 | PCM.PN ---
- General Info Date of Service: 09/29/17 Subjective Update: Pt claims that he had body ache from the fall. He feels comfortable lying down, but hurts to sit up. Has had pain with movement, standing and when he tries to use the toilet in his lower buttock. No fever or chills. No dizziness , chest pain or shortness of breath. Pt has been using oxycodone 5mg orally 3-4 times daily. Has not had any need for Iv pain meds. Pt has been on IV NS at 60cc/hr. He has been feeding well. Functional Status: Reports: Pain Controlled, Tolerating Diet, Urinating, Incentive Spirometry - Review of Systems General: Denies: Fever, Weakness HEENT: Denies: Sinus Congestion, Rhinitis Pulmonary: Denies: Shortness of Breath, Cough, Sputum Cardiovascular: Denies: Chest Pain, Lightheadedness Gastrointestinal: Denies: Abdominal Pain, Diarrhea, Nausea, Vomiting Genitourinary: Denies: Dysuria, Frequency Musculoskeletal: Reports: Joint Pain. Denies: Back Pain, Leg Pain, Joint Swelling Skin: Reports: Bruising. Denies: Pruritis, Rash Neurological: Reports: Difficulty Walking, Weakness. Denies: Confusion, Dizziness, Headache, Paresthesia, Syncope, Tremors, Trouble Speaking - Patient Data Vitals - Most Recent: Last Vital Signs Temp 97.7 F 09/29/17 08:00 Pulse 65 09/29/17 08:00 Resp 12 09/29/17 08:00 BP 109/66 09/29/17 08:00 Pulse Ox 96 09/29/17 08:00 Weight - Most Recent: 92.533 kg I&O - Last 24 Hours: Intake & Output 09/28/17 09/29/17 09/29/17 22:59 06:59 14:59 Intake Total 900 1072 Output Total 350 125 Balance 550 947 Med Orders - Current: Current Medications Amiodarone HCl (Cordarone) 200 mg PO DAILY [facility] Last Admin: 09/29/17 07:58 Dose: 200 mg Atorvastatin Calcium (Lipitor) 40 mg PO QPM [facility] Last Admin: 09/28/17 20:04 Dose: 40 mg Clopidogrel Bisulfate (Plavix) 75 mg PO DAILY [facility] Last Admin: 09/29/17 07:58 Dose: 75 mg Docusate Sodium (Colace) 100 mg PO DAILY PRN PRN Reason: Constipation Furosemide (Lasix) 40 mg PO DAILY [facility] Last Admin: 09/28/17 10:11 Dose: Not Given Hydromorphone HCl (Dilaudid) 0.5 mg IVPUSH Q4H PRN PRN Reason: Breakthrough Pain Metoprolol Tartrate (Lopressor) 100 mg PO DAILY [facility] Last Admin: 09/28/17 10:12 Dose: Not Given Nitroglycerin (Nitrostat) 0.4 mg SL ASDIRECTED [facility] Oxycodone HCl (Oxycodone) 5 mg PO Q4H PRN PRN Reason: Pain Last Admin: 09/29/17 04:32 Dose: 5 mg Potassium Chloride (Klor-Con M20) 20 meq PO DAILY [facility] Last Admin: 09/29/17 07:58 Dose: 20 meq Rivaroxaban (Xarelto) 15 mg PO WITHDINNER [facility] Last Admin: 09/28/17 17:29 Dose: 15 mg Tamsulosin HCl (Flomax) 0.4 mg PO DAILY [facility] Last Admin: 09/29/17 07:58 Dose: 0.4 mg Discontinued Medications Hydromorphone HCl (Dilaudid) 0.5 mg IVPUSH ONETIME ONE Stop: 09/27/17 21:13 Last Admin: 09/27/17 21:20 Dose: 0.5 mg Hydromorphone HCl (Dilaudid) Confirm Administered Dose 4 mg .ROUTE .STK-MED ONE Stop: 09/27/17 21:19 Last Admin: 09/27/17 21:24 Dose: Not Given Hydromorphone HCl (Dilaudid) 0.5 mg IVPUSH Q2H PRN PRN Reason: Pain Last Admin: 09/28/17 06:37 Dose: 0.5 mg Hydromorphone HCl (Dilaudid) Confirm Administered Dose 4 mg .ROUTE .STK-MED ONE Stop: 09/28/17 06:34 Last Admin: 09/28/17 06:37 Dose: Not Given Sodium Chloride (Normal Saline) 1,000 mls @ 100 mls/hr IV ASDIRECTED [facility] Last Admin: 09/29/17 04:42 Dose: 60 mls/hr - Exam Quality Assessment: Supplemental Oxygen, Skin Breakdown General: Alert, Oriented HEENT: Pupils Equal, Pupils Reactive, EOMI, Mucous Membr. Moist/[place] Neck: Supple Lungs: Clear to Auscultation, Normal Respiratory Effort Cardiovascular: Regular Rate, Regular Rhythm GI/Abdominal Exam: Normal Bowel Sounds, Soft, Non-Tender, No Organomegaly, No Distention, No Abnormal Bruit, No Mass, Pelvis Stable Back Exam: Normal Inspection, Full Range of Motion, Other (tender over the lwoer sacrum to deep pressure.) Extremities: Normal Inspection, Normal Range of Motion, Non-Tender, No Pedal Edema, Normal Capillary Refill, Other Peripheral Pulses: 2+: Radial (L), Radial (R), Dorsalis Pedis (L), Dorsalis Pedis (R) Skin: Warm, Ecchymosis (there are skin abrasion and superficial bruising scatterred all over the body secondary to plavix. Also there is a early stage one 3cm by 4cm irregular sacral stage 1 decubitus ulcer. Duoderm applied to it.) - Problem List & Annotations (1) Fall as cause of accidental injury at home as place of occurrence SNOMED Code(s): 62426070 Code(s): W19.XXXA - UNSPECIFIED FALL, INITIAL ENCOUNTER; Y92.009 - UNSP PLACE IN UNSP NON-INSTITUT (PRIVATE) RESIDENCE PLACE Status: Acute Priority: High Current Visit: Yes Qualifiers: Encounter type: initial encounter Qualified Code(s): W19.XXXA - Unspecified fall, initial encounter; Y92.009 - Unspecified place in unspecified non-institutional (private) residence as the place of occurrence of the external cause (2) Fracture of sacrum SNOMED Code(s): 754426334 Code(s): S32.10XA - UNSP FRACTURE OF SACRUM, INIT ENCNTR FOR CLOSED FRACTURE Status: Acute Priority: High Current Visit: Yes Qualifiers: Encounter type: initial encounter Zone of sacrum fracture: zone I of sacrum Fracture type: closed Fracture alignment: nondisplaced Qualified Code(s): S32.110A - Nondisplaced Zone I fracture of sacrum, initial encounter for closed fracture (3) Weakness generalized SNOMED Code(s): 28461637 Code(s): R53.1 - WEAKNESS Status: Acute Current Visit: Yes (4) Broken skin SNOMED Code(s): 676443590 Code(s): R23.8 - OTHER SKIN CHANGES Status: Acute Current Visit: No - Problem List Review Problem List Initiated/Reviewed/Updated: Yes - Assessment Assessment:: S4 fracture post fall. Skin brusing and abrasions Frequent fall CHF with dizzy spells with recurrent Vtach - Plan Plan:: Continue pain management. We will continue current diet plan. Start PT/OT evaluation for gait, weakness, ADL's and mobility concerns. Dilaudid prn but change to oxycodone as first line pain medication. Signed out to Dr. Saucedo. 09/29/17 Pt has been doing well. Pain has been controlled, but still has pain with sitting and also ambulation. Plan is to discontinue IV fluids and heploc the IV line, to prevent fluid overload, secondary to his CHF. Pt has been feeding well , will encourage oral hydration. Fluid restriction to 1500cc/day. Pain stable, will continue present pain management. Pt has Episodes of vtach and also dizzy spells. He has had falls at home. He is too old and has generalized weakness. Also his is not able to take care of him at home as he is a big robb. There is risk of him falling and also his hurting trying to prevent fall. I did have meeting with family and recommended possible care center placement, for both patient safety and also to prevent stress to customer care agent at this point. Both patient and his are in agreement to try care center. Will have [facility] hospice social worker visit with patient on sunday. Pt has stage 1 decubitus ulcer over the distal sacrum and duoderm therapy has been started. will monitor the ulcer closely. He is on airmattress to prevent further skin pressure and injury.
[2017-09-29] MEDS ORDERED: HYDROmorphone 4 MG/ML Syringe ONE ×2 (17:52→21:12)
[2017-09-29] MEDS: Rivaroxaban 10 MG Tab PO SCH (17:55)
[2017-09-29] MEDS: atorvaSTATin 40 MG Tab PO SCH (19:23)
[2017-09-29] MEDS: HYDROmorphone 2 MG/ML Syringe SUBCUT PRN (21:21)
[2017-09-29] MEDS: MEXILETINE 200 MG PO SCH (22:00)
[2017-09-30] MEDS: MEXILETINE 200 MG PO SCH ×3 (06:11→22:30)
[2017-09-30] MEDS: HYDROmorphone 2 MG/ML Syringe SUBCUT PRN ×2 (06:11→11:26)
[2017-09-30] MEDS: Potassium Chloride 20 MEQ Tab.ER PO SCH (08:12)
[2017-09-30] MEDS: Tamsulosin 0.4 MG Cap.ER PO SCH (08:12)
[2017-09-30] MEDS: Furosemide 40 MG Tab PO SCH (08:13)
[2017-09-30] MEDS: Metoprolol Tartrate 50 MG Tab PO SCH (08:13)
[2017-09-30] MEDS: Clopidogrel 75 MG Tab PO SCH (08:17)
[2017-09-30] MEDS: oxyCODONE 5 MG Tab PO PRN ×3 (08:18→18:11)
[2017-09-30] MEDS: Amiodarone 200 MG Tab PO SCH (08:18)
[2017-09-30] MEDS ORDERED: Docusate Sodium 100 MG Cap ONE (14:04)
--- NOTE | 2017-09-30 16:34 | PCM.PN ---
- General Info Date of Service: 09/30/17 Subjective Update: According to nursing staff, patient has been able to get out of bed and use the bath with assistance, but he does have pain with movement, but has been tolerating it. He did requesting injectable Dilaudid last night. Pt has been feeling better today, still hurts over his buttock bone. No constipation, has had daily bowel movement. No fever or chills. He has been using incentive spirometer well. Functional Status: Reports: Pain Controlled, Tolerating Diet, Ambulating, Urinating - Review of Systems General: Denies: Fever, Weakness, Fatigue HEENT: Denies: Headaches Pulmonary: Denies: Cough, Sputum Cardiovascular: Denies: Chest Pain, Lightheadedness Gastrointestinal: Reports: Flatus. Denies: Abdominal Pain, Nausea, Vomiting Genitourinary: Denies: Dysuria, Frequency Musculoskeletal: Reports: Back Pain. Denies: Foot Pain, Joint Pain, Joint Swelling Skin: Denies: Pruritis, Rash Neurological: Denies: Confusion, Dizziness, Headache, Numbness, Tingling, Weakness - Patient Data Vitals - Most Recent: Last Vital Signs Temp 97.5 F 09/30/17 16:00 Pulse 66 09/30/17 16:00 Resp 11 L 09/30/17 16:00 BP 103/67 09/30/17 16:00 Pulse Ox 96 09/30/17 16:00 Weight - Most Recent: 92.533 kg I&O - Last 24 Hours: Intake & Output 09/30/17 09/30/17 09/30/17 06:59 14:59 22:59 Intake Total 200 Output Total 125 Balance 75 Med Orders - Current: Current Medications Amiodarone HCl (Cordarone) 200 mg PO DAILY [facility] Last Admin: 09/30/17 08:18 Dose: 200 mg Atorvastatin Calcium (Lipitor) 40 mg PO QPM [facility] Last Admin: 09/29/17 19:23 Dose: 40 mg Clopidogrel Bisulfate (Plavix) 75 mg PO DAILY [facility] Last Admin: 09/30/17 08:17 Dose: 75 mg Docusate Sodium (Colace) 100 mg PO DAILY PRN PRN Reason: Constipation Furosemide (Lasix) 40 mg PO DAILY [facility] Last Admin: 09/30/17 08:13 Dose: 40 mg Hydromorphone HCl (Dilaudid) 0.5 mg SUBCUT Q4H PRN PRN Reason: Breakthrough Pain Last Admin: 09/30/17 11:26 Dose: 0.5 mg Metoprolol Tartrate (Lopressor) 100 mg PO DAILY [facility] Last Admin: 09/30/17 08:13 Dose: 100 mg Nitroglycerin (Nitrostat) 0.4 mg SL ASDIRECTED [facility] Oxycodone HCl (Oxycodone) 5 mg PO Q4H PRN PRN Reason: Pain Last Admin: 09/30/17 14:08 Dose: 5 mg Patient's Own Medication 1 Each Mexiletine 200 Mg 1 each PO Q8HR [facility] Last Admin: 09/30/17 14:07 Dose: 1 each Potassium Chloride (Klor-Con M20) 20 meq PO DAILY [facility] Last Admin: 09/30/17 08:12 Dose: 20 meq Rivaroxaban (Xarelto) 15 mg PO WITHDINNER [facility] Last Admin: 09/29/17 17:55 Dose: 15 mg Tamsulosin HCl (Flomax) 0.4 mg PO DAILY [facility] Last Admin: 09/30/17 08:12 Dose: 0.4 mg Discontinued Medications Docusate Sodium (Colace) Confirm Administered Dose 100 mg .ROUTE .STK-MED ONE Stop: 09/30/17 14:05 Last Admin: 09/30/17 14:22 Dose: 100 mg Hydromorphone HCl (Dilaudid) 0.5 mg IVPUSH ONETIME ONE Stop: 09/27/17 21:13 Last Admin: 09/27/17 21:20 Dose: 0.5 mg Hydromorphone HCl (Dilaudid) Confirm Administered Dose 4 mg .ROUTE .STK-MED ONE Stop: 09/27/17 21:19 Last Admin: 09/27/17 21:24 Dose: Not Given Hydromorphone HCl (Dilaudid) 0.5 mg IVPUSH Q2H PRN PRN Reason: Pain Last Admin: 09/28/17 06:37 Dose: 0.5 mg Hydromorphone HCl (Dilaudid) Confirm Administered Dose 4 mg .ROUTE .STK-MED ONE Stop: 09/28/17 06:34 Last Admin: 09/28/17 06:37 Dose: Not Given Hydromorphone HCl (Dilaudid) 0.5 mg IVPUSH Q4H PRN PRN Reason: Breakthrough Pain Last Admin: 09/29/17 17:56 Dose: 0.5 mg Hydromorphone HCl (Dilaudid) Confirm Administered Dose 4 mg .ROUTE .STK-MED ONE Stop: 09/29/17 17:53 Last Admin: 09/29/17 17:57 Dose: Not Given Hydromorphone HCl (Dilaudid) Confirm Administered Dose 4 mg .ROUTE .STK-MED ONE Stop: 09/29/17 21:13 Last Admin: 09/29/17 21:20 Dose: Not Given Sodium Chloride (Normal Saline) 1,000 mls @ 100 mls/hr IV ASDIRECTED [facility] Last Admin: 09/29/17 04:42 Dose: 60 mls/hr - Exam Quality Assessment: Supplemental Oxygen General: Alert, Oriented HEENT: Pupils Equal, Pupils Reactive, EOMI, Mucous Membr. Moist/[place] Neck: Supple Lungs: Clear to Auscultation, Normal Respiratory Effort Cardiovascular: Regular Rate, Regular Rhythm GI/Abdominal Exam: Normal Bowel Sounds, Soft, Non-Tender, No Organomegaly, No Distention, No Abnormal Bruit, No Mass, Pelvis Stable Back Exam: Normal Inspection, Full Range of Motion, Other (tender over the lower sacrum to pressure. also has stage 1 pressure ulcer over coccyx with duoderm covered.) - Problem List & Annotations (1) Fall as cause of accidental injury at home as place of occurrence SNOMED Code(s): 15424823 Code(s): W19.XXXA - UNSPECIFIED FALL, INITIAL ENCOUNTER; Y92.009 - UNSP PLACE IN UNSP NON-INSTITUT (PRIVATE) RESIDENCE PLACE Status: Acute Priority: High Current Visit: Yes Qualifiers: Encounter type: initial encounter Qualified Code(s): W19.XXXA - Unspecified fall, initial encounter; Y92.009 - Unspecified place in unspecified non-institutional (private) residence as the place of occurrence of the external cause (2) Fracture of sacrum SNOMED Code(s): 932168103 Code(s): S32.10XA - UNSP FRACTURE OF SACRUM, INIT ENCNTR FOR CLOSED FRACTURE Status: Acute Priority: High Current Visit: Yes Qualifiers: Encounter type: initial encounter Zone of sacrum fracture: zone I of sacrum Fracture type: closed Fracture alignment: nondisplaced Qualified Code(s): S32.110A - Nondisplaced Zone I fracture of sacrum, initial encounter for closed fracture (3) Weakness generalized SNOMED Code(s): 08958100 Code(s): R53.1 - WEAKNESS Status: Acute Current Visit: Yes (4) Broken skin SNOMED Code(s): 103820957 Code(s): R23.8 - OTHER SKIN CHANGES Status: Acute Current Visit: No - Problem List Review Problem List Initiated/Reviewed/Updated: Yes - My Orders Last 24 Hours: My Active Orders 09/29/17 19:41 HYDROmorphone [Dilaudid] 0.5 mg SUBCUT Q4H PRN 09/29/17 22:00 Patient's Own Medication [Ptom] 1 each PO Q8HR - Assessment Assessment:: S4 fracture post fall. Skin brusing and abrasions Frequent fall CHF with dizzy spells with recurrent Vtach - Plan Plan:: Continue pain management. We will continue current diet plan. Start PT/OT evaluation for gait, weakness, ADL's and mobility concerns. Dilaudid prn but change to oxycodone as first line pain medication. Signed out to Dr. Saucedo. 09/29/17 Pt has been doing well. Pain has been controlled, but still has pain with sitting and also ambulation. Plan is to discontinue IV fluids and heploc the IV line, to prevent fluid overload, secondary to his CHF. Pt has been feeding well , will encourage oral hydration. Fluid restriction to 1500cc/day. Pain stable, will continue present pain management. Pt has Episodes of vtach and also dizzy spells. He has had falls at home. He is too old and has generalized weakness. Also his is not able to take care of him at home as he is a big robb. There is risk of him falling and also his hurting trying to prevent fall. I did have meeting with family and recommended possible care center placement, for both patient safety and also to prevent stress to adult care manager at this point. Both patient and his are in agreement to try care center. Will have The hospital social media manager visit with patient on sunday. Pt has stage 1 decubitus ulcer over the distal sacrum and duoderm therapy has been started. will monitor the ulcer closely. He is on airmattress to prevent further skin pressure and injury. 09/30/17 Pt seems to be improving has used dilaudid only twice in past 24 hrs. I have encouraged patient to use more frequent oxycodone and avoid dilaudid.Pt has been able to get up and move with some pain asso . If he is able to get up and move, the best approach would be to swing patient tomorrow and start Physical Therapy .I have discussed with patient today. he does agree with the plan.
[2017-09-30] MEDS: Rivaroxaban 10 MG Tab PO SCH (18:11)
[2017-09-30] MEDS: atorvaSTATin 40 MG Tab PO SCH (20:26)
[2017-10-01] MEDS ORDERED: HYDROmorphone 4 MG/ML Syringe ONE (08:20)
[2017-10-01] MEDS: HYDROmorphone 2 MG/ML Syringe SUBCUT PRN (08:23)
[2017-10-01] MEDS: Amiodarone 200 MG Tab PO SCH (08:33)
[2017-10-01] MEDS: Potassium Chloride 20 MEQ Tab.ER PO SCH (08:34)
[2017-10-01] MEDS: Tamsulosin 0.4 MG Cap.ER PO SCH (08:34)
[2017-10-01] MEDS: Clopidogrel 75 MG Tab PO SCH (08:34)
[2017-10-01] MEDS: Metoprolol Tartrate 50 MG Tab PO SCH (08:36)
[2017-10-01] MEDS: Furosemide 40 MG Tab PO SCH (08:45)
[2017-10-01] MEDS: MEXILETINE 200 MG PO SCH (08:57)
--- NOTE | 2017-10-01 10:16 | PCM.DCSUM1 ---
Discharge Summary - Hospital Course Free Text/Narrative:: Pt was admitted to [facility] on 09/27/[address] Villanueva, secondary to fall with acute S5 fracture large right thigh hematoma. and also secondary to frequent fall, and old age, pt's spouse was not able to handle the cre at home. His initial CBc and BMP were stable. He w started on Dilaudid and oxycodone for pain control. Pt was needing dilaudid and oxy for the first 2 days, and also was not able to ambulate due to pain and was bedridden. On day 2 , I did discuss the adjunct faculty for medical terminology option with patient and family and plan was to admit him to care center. On day2 patient was starting to get up and use the bath room with assistance and also his pain was controlled on oral oxycodone and was not needing dilaudid. At this point plan was changed to see if he would benefit with physical therapy for strengthening and ambulation instead of care center transfer. Care center might still be the final option. Also patient has developed a sacral decubitus ulcer which was stage 1 and now has some drainage, will have wound care through our physical therapy department. As patient is stable and he not not meet criteria for acute care, will plan on discharge and admit him into swing bed care. with PT and OT. Pt and family understand and agree with the plan. Brief History: Pt had a fall at home witnessed by his spouse and had sever back pain, pt was brought in by EMS. Kindly see H&P for details. - Discharge Data Discharge Date: 10/01/17 Discharge Disposition: Home, Self-Care 01 Condition: Fair - Discharge Diagnosis/Problem(s) (1) Fall as cause of accidental injury at home as place of occurrence SNOMED Code(s): 08712317 ICD Code: W19.XXXA - UNSPECIFIED FALL, INITIAL ENCOUNTER; Y92.009 - UNSP PLACE IN UNSP NON-INSTITUT (PRIVATE) RESIDENCE PLACE Status: Acute Priority: High Current Visit: Yes Qualifiers: Encounter type: initial encounter Qualified Code(s): W19.XXXA - Unspecified fall, initial encounter; Y92.009 - Unspecified place in unspecified non-institutional (private) residence as the place of occurrence of the external cause (2) Fracture of sacrum SNOMED Code(s): 379467041 ICD Code: S32.10XA - UNSP FRACTURE OF SACRUM, INIT ENCNTR FOR CLOSED FRACTURE Status: Acute Priority: High Current Visit: Yes Qualifiers: Encounter type: initial encounter Zone of sacrum fracture: zone I of sacrum Fracture type: closed Fracture alignment: nondisplaced Qualified Code(s): S32.110A - Nondisplaced Zone I fracture of sacrum, initial encounter for closed fracture (3) Weakness generalized SNOMED Code(s): 06911578 ICD Code: R53.1 - WEAKNESS Status: Acute Current Visit: Yes (4) Broken skin SNOMED Code(s): 930466579 ICD Code: R23.8 - OTHER SKIN CHANGES Status: Acute Current Visit: No - Patient Summary/Data Consults: Consultations 09/28/17 10:12 Consult to Occupational Therapy [OT Evaluation and Treatment] [CONS] Routine Please Evaluate and Treat. OT Reason for Consult: ADL's This query below is only for informational purposes and is not editable. Admission Diagnosis/Problem: Fall at home Consult to Physical Therapy [PT Evaluation and Treatment] [CONS] Routine Please Evaluate and Treat. PT Reason for Consult: Ambulation This query below is only for informational purposes and is not editable. Admission Diagnosis/Problem: Fall at home - Patient Instructions Diet: Heart Healthy Diet Fluid Restriction: 1500 mL Activity: As Tolerated Notify Provider of: Fever, Increased Pain, Swelling and Redness, Drainage - Discharge Plan Home Medications: Home Meds Metoprolol Tartrate [Lopressor] 100 mg PO DAILY 10/08/14 [History] Tamsulosin [Flomax] 0.4 mg PO DAILY 11/04/15 [History] Amiodarone [Cordarone] 200 mg PO DAILY 09/12/17 [History] Clopidogrel [Plavix] 75 mg PO DAILY 09/12/17 [History] Escitalopram [Lexapro] 10 mg PO DAILY 09/12/17 [History] Furosemide [Lasix] 40 mg PO DAILY 09/12/17 [History] Nitroglycerin [Nitrostat] 0.4 mg SL ASDIRECTED 09/12/17 [History] Potassium Chloride 20 meq PO DAILY 09/12/17 [History] Rivaroxaban [Xarelto] 15 mg PO DAILY 09/12/17 [History] atorvaSTATin [Lipitor] 40 mg PO QPM 09/12/17 [History] Mexiletine HCl 200 mg PO Q8HR 09/28/17 [History] Docusate Sodium [Colace] 100 mg PO DAILY PRN cap 10/01/17 [Rx] oxyCODONE 5 mg PO Q4H PRN tablet 10/01/17 [Rx] Forms: ED Department Discharge Referrals: PCP,None [Primary Care Provider] - - Discharge Summary/Plan Comment DC Time >30 min.: Yes Discharge Summary/Plan Comment: Pt will be change to swing bed status. kindly use this as H&P for swing bed admission. - General Info Date of Service: 10/01/17 Functional Status: Reports: Pain Controlled, Tolerating Diet, Ambulating, Urinating - Review of Systems General: Denies: Fever, Weakness HEENT: Denies: Sinus Congestion, Rhinitis Pulmonary: Denies: Cough, Sputum Cardiovascular: Denies: Chest Pain, Lightheadedness Gastrointestinal: Denies: Abdominal Pain, Nausea, Vomiting Genitourinary: Denies: Dysuria, Frequency Musculoskeletal: Reports: Back Pain. Denies: Joint Pain, Joint Swelling Skin: Reports: Bruising. Denies: Pruritis, Rash Neurological: Reports: Dizziness. Denies: Confusion, Seizure, Syncope - Patient Data Vitals - Most Recent: Last Vital Signs Temp 98.5 F 10/01/17 07:10 Pulse 64 10/01/17 08:36 Resp 18 10/01/17 08:35 BP 101/55 L 10/01/17 08:36 Pulse Ox 95 10/01/17 08:35 Weight - Most Recent: 92.533 kg I&O - Last 24 hours: Intake & Output 09/30/17 10/01/17 10/01/17 22:59 06:59 14:59 Intake Total 250 Balance 250 Med Orders - Current: Current Medications Amiodarone HCl (Cordarone) 200 mg PO DAILY [facility] Last Admin: 10/01/17 08:33 Dose: 200 mg Atorvastatin Calcium (Lipitor) 40 mg PO QPM [facility] Last Admin: 09/30/17 20:26 Dose: 40 mg Clopidogrel Bisulfate (Plavix) 75 mg PO DAILY [facility] Last Admin: 10/01/17 08:34 Dose: 75 mg Docusate Sodium (Colace) 100 mg PO DAILY PRN PRN Reason: Constipation Furosemide (Lasix) 40 mg PO DAILY [facility] Last Admin: 10/01/17 08:45 Dose: 40 mg Hydromorphone HCl (Dilaudid) 0.5 mg SUBCUT Q4H PRN PRN Reason: Breakthrough Pain Last Admin: 10/01/17 08:23 Dose: 0.5 mg Metoprolol Tartrate (Lopressor) 100 mg PO DAILY [facility] Last Admin: 10/01/17 08:36 Dose: 100 mg Nitroglycerin (Nitrostat) 0.4 mg SL ASDIRECTED [facility] Oxycodone HCl (Oxycodone) 5 mg PO Q4H PRN PRN Reason: Pain Last Admin: 09/30/17 18:11 Dose: 5 mg Patient's Own Medication 1 Each Mexiletine 200 Mg 1 each PO Q8HR [facility] Last Admin: 10/01/17 08:57 Dose: 1 each Potassium Chloride (Klor-Con M20) 20 meq PO DAILY [facility] Last Admin: 10/01/17 08:34 Dose: 20 meq Rivaroxaban (Xarelto) 15 mg PO WITHDINNER [facility] Last Admin: 09/30/17 18:11 Dose: 15 mg Tamsulosin HCl (Flomax) 0.4 mg PO DAILY [facility] Last Admin: 10/01/17 08:34 Dose: 0.4 mg Discontinued Medications Docusate Sodium (Colace) Confirm Administered Dose 100 mg .ROUTE .STK-MED ONE Stop: 09/30/17 14:05 Last Admin: 09/30/17 14:22 Dose: 100 mg Hydromorphone HCl (Dilaudid) 0.5 mg IVPUSH ONETIME ONE Stop: 09/27/17 21:13 Last Admin: 09/27/17 21:20 Dose: 0.5 mg Hydromorphone HCl (Dilaudid) Confirm Administered Dose 4 mg .ROUTE .STK-MED ONE Stop: 09/27/17 21:19 Last Admin: 09/27/17 21:24 Dose: Not Given Hydromorphone HCl (Dilaudid) 0.5 mg IVPUSH Q2H PRN PRN Reason: Pain Last Admin: 09/28/17 06:37 Dose: 0.5 mg Hydromorphone HCl (Dilaudid) Confirm Administered Dose 4 mg .ROUTE .STK-MED ONE Stop: 09/28/17 06:34 Last Admin: 09/28/17 06:37 Dose: Not Given Hydromorphone HCl (Dilaudid) 0.5 mg IVPUSH Q4H PRN PRN Reason: Breakthrough Pain Last Admin: 09/29/17 17:56 Dose: 0.5 mg Hydromorphone HCl (Dilaudid) Confirm Administered Dose 4 mg .ROUTE .STK-MED ONE Stop: 09/29/17 17:53 Last Admin: 09/29/17 17:57 Dose: Not Given Hydromorphone HCl (Dilaudid) Confirm Administered Dose 4 mg .ROUTE .STK-MED ONE Stop: 09/29/17 21:13 Last Admin: 09/29/17 21:20 Dose: Not Given Hydromorphone HCl (Dilaudid) Confirm Administered Dose 4 mg .ROUTE .STK-MED ONE Stop: 10/01/17 08:21 Last Admin: 10/01/17 08:57 Dose: Not Given Sodium Chloride (Normal Saline) 1,000 mls @ 100 mls/hr IV ASDIRECTED [facility] Last Admin: 09/29/17 04:42 Dose: 60 mls/hr - Exam General: Reports: Alert, Oriented HEENT: Reports: Pupils Equal, Pupils Reactive, EOMI, Mucous Membr. Moist/[place] Neck: Reports: Supple Lungs: Reports: Clear to Auscultation, Normal Respiratory Effort Cardiovascular: Reports: Regular Rate, Regular Rhythm GI/Abdominal Exam: Normal Bowel Sounds, Soft, Non-Tender, No Organomegaly, No Distention, No Abnormal Bruit, No Mass, Pelvis Stable Back Exam: Reports: Normal Inspection, Full Range of Motion, Other (sacral tenderness) Skin: Reports: Warm, Intact, Other (sacral decubitus ulcer. right thigh heamtoma with brusing.) Neurological: Reports: No New Focal Deficit Psy/Mental Status: Reports: Alert
[2017-10-01] MEDS: oxyCODONE 5 MG Tab PO PRN (13:01)
[2017-10-01 14:00] VITALS: BP 98/59
== END 2017-10-01 10:13 | disposition swing bed (61) | DRG 552 ==
LOC: LB.ED 19:41 → UNDOADMIN 22:12 → LB.MS 22:12 → LB.ED 22:12 → LB.MS 22:36
PROVIDERS: ADMIT Family Medicine; ATTEND Family Medicine
DX: S32.110A Nondisplaced Zone I fracture of sacrum, initial encounter for closed fracture (principal); I13.0 Hypertensive heart and chronic kidney disease with heart failure and stage 1 through stage 4 chronic kidney disease, or unspecified chronic kidney disease; S70.11XA Contusion of right thigh, initial encounter; I50.9 Heart failure, unspecified; M06.9 Rheumatoid arthritis, unspecified; N18.3 Chronic kidney disease, stage 3 (moderate); D64.9 Anemia, unspecified; M15.9 Polyosteoarthritis, unspecified; W19.XXXA Unspecified fall, initial encounter; Y92.000 Kitchen of unspecified non-institutional (private) residence as the place of occurrence of the external cause; R42 Dizziness and giddiness; R63.0 Anorexia; R53.1 Weakness; R29.6 Repeated falls; Z91.81 History of falling; M54.9 Dorsalgia, unspecified; M25.551 Pain in right hip; M25.561 Pain in right knee; M85.851 Other specified disorders of bone density and structure, right thigh; M25.78 Osteophyte, vertebrae; M43.10 Spondylolisthesis, site unspecified; Z87.440 Personal history of urinary (tract) infections; Z95.0 Presence of cardiac pacemaker; H54.7 Unspecified visual loss; Z79.01 Long term (current) use of anticoagulants; R54 Age-related physical debility; L89.151 Pressure ulcer of sacral region, stage 1
CPT/HCPCS: 36415; 72125; 72128; 72131; 72192; 73030; 73560; 80053; 84484; 85025; 99285; J1170; J7040; 97161-GP; 97597-GP; A0425; A0429; A9270-GY; J7030

== ENCOUNTER 2017-10-01 09:34 | Inpatient (IN) | payer MEDICARE, BC ==
[2017-10-01] MEDS ORDERED: Pneumococcal Polyvalent-23 Vaccine 0.5 ML SDV IM ONE (10:31)
[2017-10-01] MEDS ORDERED: HYDROmorphone 4 MG/ML Syringe ONE (15:35)
[2017-10-01] MEDS ORDERED: FLU Vacc QS 2017-18 (36mos UP)/PF 60 MCG/0.5 ML Syringe IM ONE (15:44)
[2017-10-01] MEDS ORDERED: Docusate Sodium 100 MG Cap PO PRN (17:07)
[2017-10-01] MEDS ORDERED: Nitroglycerin 0.4 MG Tab.SL SL PRN (17:15)
[2017-10-01] MEDS: Clopidogrel 75 MG Tab PO SCH (18:40)
[2017-10-01] MEDS: atorvaSTATin 40 MG Tab PO SCH (19:52)
[2017-10-01] MEDS: MEXILETINE HCL 200 MG PO SCH (23:56)
[2017-10-02] MEDS: oxyCODONE 5 MG Tab PO PRN ×3 (00:30→13:37)
[2017-10-02] MEDS: MEXILETINE HCL 200 MG PO SCH (07:34)
[2017-10-02] MEDS: Amiodarone 200 MG Tab PO SCH (07:34)
[2017-10-02] MEDS: Tamsulosin 0.4 MG Cap.ER PO SCH (07:35)
[2017-10-02] MEDS: Clopidogrel 75 MG Tab PO SCH (07:35)
[2017-10-02] MEDS: Potassium Chloride 20 MEQ Tab.ER PO SCH (07:35)
[2017-10-02] MEDS: Metoprolol Tartrate 50 MG Tab PO SCH (07:39)
[2017-10-02] MEDS ORDERED: Escitalopram 20 MG Tab PO SCH (08:00)
[2017-10-02] MEDS: Furosemide 40 MG Tab PO SCH (14:41)
[2017-10-02] MEDS ORDERED: Rivaroxaban 10 MG Tab PO SCH (18:00)
[2017-10-02] MEDS: atorvaSTATin 40 MG Tab PO SCH (19:22)
[2017-10-02] MEDS: Rivaroxaban 15 MG Tab PO SCH (19:22)
[2017-10-02] MEDS: Tuberculin, PPD 5 Units/0.1 ML 1 ML MDV IDERM ONE (19:46)
[2017-10-03] MEDS: Clopidogrel 75 MG Tab PO SCH (08:31)
[2017-10-03] MEDS: Furosemide 40 MG Tab PO SCH (08:31)
[2017-10-03] MEDS: Potassium Chloride 20 MEQ Tab.ER PO SCH (08:31)
[2017-10-03] MEDS: Metoprolol Tartrate 50 MG Tab PO SCH ×2 (08:32→09:25)
[2017-10-03] MEDS: Amiodarone 200 MG Tab PO SCH ×2 (09:25→10:04)
[2017-10-03] MEDS: Tamsulosin 0.4 MG Cap.ER PO SCH (09:25)
[2017-10-03] MEDS: Tuberculin, PPD 5 Units/0.1 ML 1 ML MDV IDERM ONE (10:19)
[2017-10-03] MEDS: oxyCODONE 5 MG Tab PO PRN ×2 (17:31→21:36)
[2017-10-03] MEDS: Rivaroxaban 15 MG Tab PO SCH (17:34)
[2017-10-03] MEDS: atorvaSTATin 40 MG Tab PO SCH (21:36)
[2017-10-04] MEDS: Potassium Chloride 20 MEQ Tab.ER PO SCH (08:43)
[2017-10-04] MEDS: Metoprolol Tartrate 50 MG Tab PO SCH (08:44)
[2017-10-04] MEDS: Furosemide 40 MG Tab PO SCH (08:45)
[2017-10-04] MEDS: Clopidogrel 75 MG Tab PO SCH (08:45)
[2017-10-04] MEDS: Amiodarone 200 MG Tab PO SCH (10:11)
[2017-10-04] MEDS ORDERED: Lidocaine 2% Viscous Solution 100 ML Bottle PO ONE (13:46)
[2017-10-04] MEDS ORDERED: Lidocaine 2% Viscous Solution 15 ML Cup ONE (13:55)
[2017-10-04] MEDS: Rivaroxaban 15 MG Tab PO SCH (18:34)
[2017-10-04] MEDS: atorvaSTATin 40 MG Tab PO SCH (20:48)
[2017-10-05] MEDS: Potassium Chloride 20 MEQ Tab.ER PO SCH (07:27)
[2017-10-05] MEDS: Omeprazole 20 MG Cap.CR PO SCH (07:27)
[2017-10-05] MEDS: Furosemide 40 MG Tab PO SCH (07:27)
[2017-10-05] MEDS: Metoprolol Tartrate 50 MG Tab PO SCH (07:28)
[2017-10-05] MEDS: Clopidogrel 75 MG Tab PO SCH (07:29)
--- NOTE | 2017-10-05 10:13 | PCM.PN ---
- General Info Date of Service: 10/05/17 Subjective Update: Pt claims he fels better. he has been working with PT. Able to walk short distance with out pain. Also he has a sacral decubitus which is healing. No concern s form patient. Functional Status: Reports: Pain Controlled, Tolerating Diet, Ambulating, Urinating, Incentive Spirometry - Review of Systems General: Denies: Fever, Weakness HEENT: Denies: Headaches, Sinus Congestion, Sore Throat Pulmonary: Denies: Shortness of Breath, Sputum, Hemoptysis Cardiovascular: Denies: Chest Pain, Lightheadedness Gastrointestinal: Denies: Nausea, Vomiting Genitourinary: Denies: Dysuria, Frequency Musculoskeletal: Reports: Back Pain. Denies: Joint Pain, Joint Swelling Skin: Reports: Bruising. Denies: Pruritis, Rash - Patient Data Vitals - Most Recent: Last Vital Signs Temp 99.5 F 10/05/17 07:45 Pulse 65 10/05/17 07:28 Resp 20 10/05/17 07:15 BP 135/75 10/05/17 07:28 Pulse Ox 96 10/05/17 07:15 Weight - Most Recent: 80.399 kg I&O - Last 24 Hours: Intake & Output 10/04/17 10/05/17 10/05/17 22:59 06:59 14:59 Intake Total 480 200 Output Total 200 Balance 280 200 Lab Results Last 24 Hours: Laboratory Results - last 24 hr 10/05/17 10/05/17 Range/Units 07:30 07:30 WBC 6.9 D (4.0-11.0) K/uL RBC 6.28 (4.50-6.50) M/uL Hgb 17.1 D (13.0-18.0) g/dL Hct 51.6 D (40.0-54.0) % MCV 82 (76-96) fL MCH 27.2 (27.0-32.0) pg MCHC 33.1 (31.0-35.0) g/dL RDW 18.5 H (11.0-16.0) % Plt Count 147 L D (150-400) K/uL MPV 9.8 (6.0-10.0) fL Neut % (Auto) 70.8 H (45.0-70.0) % Lymph % (Auto) 14.5 L (20.0-40.0) % Angelina % (Auto) 11.9 H (3.0-10.0) % Eos % (Auto) 2.5 (1.0-5.0) % Baso % (Auto) 0.3 (0.0-0.5) % Neut # (Auto) 4.89 (2.00-7.50) K/uL Lymph # (Auto) 1.00 L (1.50-4.00) K/uL Angelina # (Auto) 0.82 H (0.20-0.80) K/uL Eos # (Auto) 0.17 (0.04-0.40) K/uL Baso # (Auto) 0.02 (0.02-0.10) K/uL Sodium 143 (136-145) mmol/L Potassium 3.6 (3.5-5.1) mmol/L Chloride 106 (98-107) mmol/L Carbon Dioxide 27.0 (21.0-32.0) mmol/L Anion Gap 13.6 (5.0-15.0) mmol/L BUN 23 D (8-26) mg/dL Creatinine 1.17 D (0.70-1.30) mg/dL Est Cr Clr Drug Dosing 51.54 mL/min Estimated GFR (MDRD) 59 L (>60) MLS/MIN BUN/Creatinine Ratio 19.7 (6-25) Glucose 101 H (74-100) mg/dL Calcium 8.5 (8.5-10.1) mg/dL Med Orders - Current: Current Medications Amiodarone HCl (Cordarone) 200 mg PO DAILY@1000 [facility] Last Admin: 10/04/17 10:11 Dose: 200 mg Atorvastatin Calcium (Lipitor) 40 mg PO QPM [facility] Last Admin: 10/04/17 20:48 Dose: 40 mg Clopidogrel Bisulfate (Plavix) 75 mg PO DAILY [facility] Last Admin: 10/05/17 07:29 Dose: 75 mg Docusate Sodium (Colace) 100 mg PO DAILY PRN PRN Reason: Constipation Furosemide (Lasix) 40 mg PO DAILY [facility] Last Admin: 10/05/17 07:27 Dose: 40 mg Metoprolol Tartrate (Lopressor) 50 mg PO DAILY [facility] Last Admin: 10/05/17 07:28 Dose: 50 mg Mexiletine HCl (Mexitil) 200 mg PO Q8HR [facility] Last Admin: 10/05/17 06:18 Dose: 200 mg Nitroglycerin (Nitrostat) 0.4 mg SL ASDIRECTED PRN PRN Reason: Chest Pain Omeprazole (Omeprazole) 20 mg PO DAILY [facility] Last Admin: 10/05/17 07:27 Dose: 20 mg Oxycodone HCl (Oxycodone) 5 mg PO Q4H PRN PRN Reason: Pain Last Admin: 10/03/17 21:36 Dose: 5 mg Potassium Chloride (Klor-Con M20) 20 meq PO DAILY [facility] Last Admin: 10/05/17 07:27 Dose: 20 meq Rivaroxaban (Xarelto) 15 mg PO WITHDINNER [facility] Last Admin: 10/04/17 18:34 Dose: 15 mg Discontinued Medications Amiodarone HCl (Cordarone) 200 mg PO DAILY [facility] Last Admin: 10/03/17 09:25 Dose: Not Given Escitalopram Oxalate (Lexapro) 10 mg PO DAILY [facility] Hydromorphone HCl (Dilaudid) Confirm Administered Dose 4 mg .ROUTE .STK-MED ONE Stop: 10/01/17 15:36 Last Admin: 10/01/17 15:44 Dose: Not Given Influenza Virus Vaccine (Fluzone Quad [id number]) 60 mcg IM .ONCE ONE Stop: 10/01/17 15:45 Last Admin: 10/02/17 07:32 Dose: Not Given Lidocaine HCl (Xylocaine 2% Viscous) 20 ml PO ONETIME ONE Stop: 10/04/17 13:47 Last Admin: 10/04/17 14:07 Dose: 20 ml Lidocaine HCl (Xylocaine 2% Viscous) Confirm Administered Dose 30 ml .ROUTE .STK -MED ONE Stop: 10/04/17 13:56 Last Admin: 10/04/17 14:05 Dose: Not Given Metoprolol Tartrate (Lopressor) 100 mg PO DAILY [facility] Last Admin: 10/03/17 09:25 Dose: Not Given Mexiletine Hcl 200 (Mg Cap Own Med) 0 mg PO Q8HR [facility] Last Admin: 10/02/17 07:34 Dose: 200 mg Pneumococcal Polyvalent Vaccine (Pneumovax 23) 0.5 ml IM .ONCE ONE Stop: 10/01/17 10:32 Last Admin: 10/02/17 07:32 Dose: Not Given Tamsulosin HCl (Flomax) 0.4 mg PO DAILY [facility] Last Admin: 10/03/17 09:25 Dose: Not Given Tuberculin PPD (Aplisol) 5 unit IDERM ONETIME ONE Stop: 10/01/17 10:05 Last Admin: 10/03/17 10:19 Dose: Not Given - Exam General: Alert, Oriented HEENT: Pupils Equal, Pupils Reactive, EOMI, Mucous Membr. Moist/[place] Neck: Supple Lungs: Clear to Auscultation, Normal Respiratory Effort Cardiovascular: Regular Rate, Regular Rhythm GI/Abdominal Exam: Normal Bowel Sounds, Soft, Non-Tender, No Organomegaly, No Distention, No Abnormal Bruit, No Mass, Pelvis Stable Back Exam: Other (tender over distal sacrum. There is duoderm cover over the sacral ulcer.) - Problem List & Annotations (1) Fracture of sacrum SNOMED Code(s): 931705546 Code(s): S32.10XA - UNSP FRACTURE OF SACRUM, INIT ENCNTR FOR CLOSED FRACTURE Status: Acute Priority: High Current Visit: No (2) Hematoma SNOMED Code(s): 186439541 Code(s): T14.8XXA - OTHER INJURY OF UNSPECIFIED BODY REGION, INITIAL ENCOUNTER Status: Acute Priority: High Current Visit: No - Problem List Review Problem List Initiated/Reviewed/Updated: Yes - My Orders Last 24 Hours: My Active Orders 10/04/17 14:00 Wound Care [RC] 1000 10/05/17 08:00 Omeprazole 20 mg PO DAILY 10/06/17 10:00 Wound Care [RC] Q2D - Assessment Assessment:: Sacral fracture improving Resolving thigh hematoma Stable hemoglobin - Plan Plan:: Pt has been doing well. He has been ambulating with physical therapy. He still has sacral pain and discomfort but controlled on pain meds. His sacral decubitus has been healing.CBC shows hemoglobin of 17.1 and his BMP is normal. Duoderm in place.Will continue wound care and physical therapy and when cleared by physical therapy will plan on transfer to care center.
[2017-10-05] MEDS: Amiodarone 200 MG Tab PO SCH (11:23)
[2017-10-05] MEDS: oxyCODONE 5 MG Tab PO PRN (17:23)
[2017-10-05] MEDS: Rivaroxaban 15 MG Tab PO SCH (17:24)
[2017-10-05] MEDS: atorvaSTATin 40 MG Tab PO SCH (19:52)
[2017-10-06] MEDS: Omeprazole 20 MG Cap.CR PO SCH (07:53)
[2017-10-06] MEDS: Clopidogrel 75 MG Tab PO SCH (07:54)
[2017-10-06] MEDS: Metoprolol Tartrate 50 MG Tab PO SCH (07:54)
[2017-10-06] MEDS: Furosemide 40 MG Tab PO SCH (07:54)
[2017-10-06] MEDS: Potassium Chloride 20 MEQ Tab.ER PO SCH (07:54)
[2017-10-06] MEDS: oxyCODONE 5 MG Tab PO PRN (09:16)
[2017-10-06] MEDS: Amiodarone 200 MG Tab PO SCH (09:16)
[2017-10-06] MEDS: Rivaroxaban 15 MG Tab PO SCH (17:38)
[2017-10-06] MEDS: atorvaSTATin 40 MG Tab PO SCH (20:05)
[2017-10-07] MEDS: Omeprazole 20 MG Cap.CR PO SCH (08:01)
[2017-10-07] MEDS: Furosemide 40 MG Tab PO SCH (08:01)
[2017-10-07] MEDS: Clopidogrel 75 MG Tab PO SCH (08:01)
[2017-10-07] MEDS: Potassium Chloride 20 MEQ Tab.ER PO SCH (08:01)
[2017-10-07] MEDS: Metoprolol Tartrate 50 MG Tab PO SCH (08:02)
[2017-10-07] MEDS: Amiodarone 200 MG Tab PO SCH (11:21)
[2017-10-07] MEDS: Rivaroxaban 15 MG Tab PO SCH (17:54)
[2017-10-07] MEDS: atorvaSTATin 40 MG Tab PO SCH (20:22)
[2017-10-08] MEDS: Furosemide 40 MG Tab PO SCH (07:59)
[2017-10-08] MEDS: Metoprolol Tartrate 50 MG Tab PO SCH (07:59)
[2017-10-08] MEDS: Clopidogrel 75 MG Tab PO SCH (07:59)
[2017-10-08] MEDS: Potassium Chloride 20 MEQ Tab.ER PO SCH (07:59)
[2017-10-08] MEDS: Omeprazole 20 MG Cap.CR PO SCH (08:00)
[2017-10-08] MEDS: Amiodarone 200 MG Tab PO SCH (10:18)
[2017-10-08] MEDS: oxyCODONE 5 MG Tab PO PRN ×2 (10:19→14:13)
--- NOTE | 2017-10-08 16:31 | PCM.PN ---
- General Info Date of Service: 10/08/17 Subjective Update: Patient states he is doing better and feeling a little stronger. He still has a poor appetite but does feel some improvement. He remains very weak. Denies any chest pain, and no shortness of breath. Functional Status: Reports: Pain Controlled, Tolerating Diet, Ambulating - Review of Systems General: Reports: Weakness HEENT: Reports: No Symptoms Pulmonary: Reports: No Symptoms Cardiovascular: Reports: No Symptoms Gastrointestinal: Reports: No Symptoms Genitourinary: Reports: No Symptoms Musculoskeletal: Reports: No Symptoms - Patient Data Vitals - Most Recent: Last Vital Signs Temp 37.0 C 10/08/17 08:00 Pulse 135 H 10/08/17 08:00 Resp 16 10/08/17 08:00 BP 135/73 10/08/17 07:59 Pulse Ox 98 10/08/17 08:00 Weight - Most Recent: 79.605 kg I&O - Last 24 Hours: Intake & Output 10/08/17 10/08/17 10/08/17 06:59 14:59 22:59 Intake Total 200 Balance 200 Med Orders - Current: Current Medications Amiodarone HCl (Cordarone) 200 mg PO DAILY@1000 [facility] Last Admin: 10/08/17 10:18 Dose: 200 mg Atorvastatin Calcium (Lipitor) 40 mg PO QPM [facility] Last Admin: 10/07/17 20:22 Dose: 40 mg Clopidogrel Bisulfate (Plavix) 75 mg PO DAILY [facility] Last Admin: 10/08/17 07:59 Dose: 75 mg Docusate Sodium (Colace) 100 mg PO DAILY PRN PRN Reason: Constipation Furosemide (Lasix) 40 mg PO DAILY [facility] Last Admin: 10/08/17 07:59 Dose: 40 mg Metoprolol Tartrate (Lopressor) 50 mg PO DAILY [facility] Last Admin: 10/08/17 07:59 Dose: 50 mg Mexiletine HCl (Mexitil) 200 mg PO Q8HR [facility] Last Admin: 10/08/17 14:13 Dose: 200 mg Nitroglycerin (Nitrostat) 0.4 mg SL ASDIRECTED PRN PRN Reason: Chest Pain Omeprazole (Omeprazole) 20 mg PO DAILY [facility] Last Admin: 10/08/17 08:00 Dose: 20 mg Oxycodone HCl (Oxycodone) 5 mg PO Q4H PRN PRN Reason: Pain Last Admin: 10/08/17 14:13 Dose: 5 mg Potassium Chloride (Klor-Con M20) 20 meq PO DAILY [facility] Last Admin: 10/08/17 07:59 Dose: 20 meq Rivaroxaban (Xarelto) 15 mg PO WITHDINNER [facility] Last Admin: 10/07/17 17:54 Dose: 15 mg Discontinued Medications Amiodarone HCl (Cordarone) 200 mg PO DAILY [facility] Last Admin: 10/03/17 09:25 Dose: Not Given Escitalopram Oxalate (Lexapro) 10 mg PO DAILY [facility] Hydromorphone HCl (Dilaudid) Confirm Administered Dose 4 mg .ROUTE .STK-MED ONE Stop: 10/01/17 15:36 Last Admin: 10/01/17 15:44 Dose: Not Given Influenza Virus Vaccine (Fluzone Quad [id number]) 60 mcg IM .ONCE ONE Stop: 10/01/17 15:45 Last Admin: 10/02/17 07:32 Dose: Not Given Lidocaine HCl (Xylocaine 2% Viscous) 20 ml PO ONETIME ONE Stop: 10/04/17 13:47 Last Admin: 10/04/17 14:07 Dose: 20 ml Lidocaine HCl (Xylocaine 2% Viscous) Confirm Administered Dose 30 ml .ROUTE .STK -MED ONE Stop: 10/04/17 13:56 Last Admin: 10/04/17 14:05 Dose: Not Given Metoprolol Tartrate (Lopressor) 100 mg PO DAILY [facility] Last Admin: 10/03/17 09:25 Dose: Not Given Mexiletine Hcl 200 (Mg Cap Own Med) 0 mg PO Q8HR [facility] Last Admin: 10/02/17 07:34 Dose: 200 mg Pneumococcal Polyvalent Vaccine (Pneumovax 23) 0.5 ml IM .ONCE ONE Stop: 10/01/17 10:32 Last Admin: 10/02/17 07:32 Dose: Not Given Tamsulosin HCl (Flomax) 0.4 mg PO DAILY [facility] Last Admin: 10/03/17 09:25 Dose: Not Given Tuberculin PPD (Aplisol) 5 unit IDERM ONETIME ONE Stop: 10/01/17 10:05 Last Admin: 10/03/17 10:19 Dose: Not Given - Exam General: Alert, Oriented, Cooperative HEENT: Pupils Equal, Pupils Reactive, EOMI Neck: Supple Lungs: Clear to Auscultation, Normal Respiratory Effort Cardiovascular: Regular Rate, Regular Rhythm GI/Abdominal Exam: Normal Bowel Sounds Back Exam: Normal Inspection Extremities: Normal Inspection - Problem List Review Problem List Initiated/Reviewed/Updated: Yes - Assessment Assessment:: Sacral fracture improving Resolving thigh hematoma Stable hemoglobin - Plan Plan:: Pt has been doing well. He has been ambulating with physical therapy. He still has sacral pain and discomfort but controlled on pain meds. His sacral decubitus has been healing.CBC shows hemoglobin of 17.1 and his BMP is normal. Duoderm in place.Will continue wound care and physical therapy and when cleared by physical therapy will plan on transfer to care center. 10/08/17 Patient continues to improve. He is working well with PT. Sacral decubitus healing well. Trial of megace for weight loss and decreased appetite - discussed risks and benefits and side effects with patient and he is willing to try the medication.
[2017-10-08] MEDS: Rivaroxaban 15 MG Tab PO SCH (18:37)
[2017-10-08] MEDS: atorvaSTATin 40 MG Tab PO SCH (20:16)
[2017-10-09] MEDS: Clopidogrel 75 MG Tab PO SCH (08:03)
[2017-10-09] MEDS: Omeprazole 20 MG Cap.CR PO SCH (08:03)
[2017-10-09] MEDS: Escitalopram 20 MG Tab PO SCH (08:03)
[2017-10-09] MEDS: Furosemide 40 MG Tab PO SCH (08:03)
[2017-10-09] MEDS: Megestrol Susp 40 MG/ML ML (240 ML Bottle) PO SCH ×2 (08:03→11:51)
[2017-10-09] MEDS: Potassium Chloride 20 MEQ Tab.ER PO SCH (08:03)
[2017-10-09] MEDS: Metoprolol Tartrate 50 MG Tab PO SCH (08:03)
--- NOTE | 2017-10-09 08:51 | PCM.SN ---
- Free Text/Narrative Note: Routine stop by. Patient alert and in chair eating breakfast. Patient knows place, who I am, person and for time he only can recall it is 2018 but not day of the week or day or month. Patient states he is doing well and has no concerns.
[2017-10-09] MEDS: Amiodarone 200 MG Tab PO SCH (09:52)
[2017-10-09] MEDS: oxyCODONE 5 MG Tab PO PRN ×2 (11:49→16:46)
[2017-10-09] MEDS: Rivaroxaban 15 MG Tab PO SCH (18:43)
[2017-10-09] MEDS: Oxybutynin 5 MG Tab.ER PO SCH (21:03)
[2017-10-09] MEDS: atorvaSTATin 40 MG Tab PO SCH (21:03)
[2017-10-10] MEDS: oxyCODONE 5 MG Tab PO PRN ×2 (05:50→19:51)
[2017-10-10] MEDS: Megestrol Susp 40 MG/ML ML (240 ML Bottle) PO SCH (07:57)
[2017-10-10] MEDS: Clopidogrel 75 MG Tab PO SCH (07:59)
[2017-10-10] MEDS: Potassium Chloride 20 MEQ Tab.ER PO SCH (07:59)
[2017-10-10] MEDS: Omeprazole 20 MG Cap.CR PO SCH (07:59)
[2017-10-10] MEDS: Furosemide 40 MG Tab PO SCH (07:59)
[2017-10-10] MEDS: Escitalopram 20 MG Tab PO SCH (07:59)
[2017-10-10] MEDS: Metoprolol Tartrate 50 MG Tab PO SCH (08:00)
[2017-10-10] MEDS: Amiodarone 200 MG Tab PO SCH (10:30)
[2017-10-10] MEDS: Rivaroxaban 15 MG Tab PO SCH (17:41)
[2017-10-10] MEDS: atorvaSTATin 40 MG Tab PO SCH (19:51)
[2017-10-10] MEDS: Oxybutynin 5 MG Tab.ER PO SCH (19:51)
[2017-10-11] MEDS: oxyCODONE 5 MG Tab PO PRN ×4 (03:56→16:50)
[2017-10-11] MEDS: Escitalopram 20 MG Tab PO SCH (07:16)
[2017-10-11] MEDS: Furosemide 40 MG Tab PO SCH (07:27)
[2017-10-11] MEDS: Omeprazole 20 MG Cap.CR PO SCH (07:27)
[2017-10-11] MEDS: Megestrol Susp 40 MG/ML ML (240 ML Bottle) PO SCH (07:27)
[2017-10-11] MEDS: Clopidogrel 75 MG Tab PO SCH (07:27)
[2017-10-11] MEDS: Metoprolol Tartrate 50 MG Tab PO SCH (07:27)
[2017-10-11] MEDS: Potassium Chloride 20 MEQ Tab.ER PO SCH (07:27)
[2017-10-11] MEDS: Amiodarone 200 MG Tab PO SCH (10:28)
[2017-10-11] MEDS: Rivaroxaban 15 MG Tab PO SCH (17:11)
[2017-10-11] MEDS: Oxybutynin 5 MG Tab.ER PO SCH (19:14)
[2017-10-11] MEDS: atorvaSTATin 40 MG Tab PO SCH (19:14)
[2017-10-12] MEDS: Escitalopram 20 MG Tab PO SCH (08:05)
[2017-10-12] MEDS: Megestrol Susp 40 MG/ML ML (240 ML Bottle) PO SCH (08:06)
[2017-10-12] MEDS: Omeprazole 20 MG Cap.CR PO SCH (08:07)
[2017-10-12] MEDS: Furosemide 40 MG Tab PO SCH (08:07)
[2017-10-12] MEDS: Potassium Chloride 20 MEQ Tab.ER PO SCH (08:07)
[2017-10-12] MEDS: Metoprolol Tartrate 50 MG Tab PO SCH (08:12)
[2017-10-12] MEDS: Clopidogrel 75 MG Tab PO SCH (08:12)
[2017-10-12] MEDS: Amiodarone 200 MG Tab PO SCH (09:40)
--- NOTE | 2017-10-12 15:19 | PN ---
DATE OF VISIT: 10/12/2017 HISTORY OF PRESENT ILLNESS: I am doing weekly rounds on [facility]. This morning, there is some concern with nursing staff about the patient's condition slowly slipping over the course of the last few days. Yesterday was not a very good day for him. He had a lot of pain issues. He was taking oxycodone, but it did not seem to help with his pain and it made him very confused or groggy. Today, the patient seems to be doing significantly better. When entering the room, the patient is lying in bed. He is in no obvious distress. He is awake. He tells me that he feels very good today. He has no pain at this time. The patient did eat a good breakfast today. He is here for strengthening and weakness after falling. PHYSICAL EXAMINATION: VITAL SIGNS: Today; blood pressure 118/65, pulse 66, and O2 sats are 99% on room air. LUNG EXAM: The patient has a small amount of rhonchi with end-expiratory respirations in both bases. Otherwise, lungs are clear. There is no wheezing. CARDIAC: Heart sounds are distinct. S1, S2 present. No murmurs noted. ABDOMEN: Soft and nontender. SKIN: Warm and dry. The patient has no lower extremity edema. TREATMENT PLAN: Today, we will try different pain medications, stopping oxycodone and starting Ultram 50 mg every 6 hours p.r.n. The patient is doing well today. I advised the nursing staff that, if his condition changes, we should get some lab work, but right now he seems to be doing fine, and we will continue to monitor the patient. There is some concern about his code status. He is still at full code. This should be addressed with his primary care provider, whom he tells me is Dr. Saucedo. CRS/MODL /[id number]
[2017-10-12] MEDS: Rivaroxaban 15 MG Tab PO SCH (18:04)
[2017-10-12] MEDS: atorvaSTATin 40 MG Tab PO SCH (21:04)
[2017-10-12] MEDS: Oxybutynin 5 MG Tab.ER PO SCH (21:05)
[2017-10-13] MEDS: Megestrol Susp 40 MG/ML ML (240 ML Bottle) PO SCH (08:05)
[2017-10-13] MEDS: Escitalopram 20 MG Tab PO SCH (08:05)
[2017-10-13] MEDS: Clopidogrel 75 MG Tab PO SCH (08:06)
[2017-10-13] MEDS: Omeprazole 20 MG Cap.CR PO SCH (08:06)
[2017-10-13] MEDS: Metoprolol Tartrate 50 MG Tab PO SCH (08:07)
[2017-10-13] MEDS: Furosemide 40 MG Tab PO SCH (08:07)
[2017-10-13] MEDS: Potassium Chloride 20 MEQ Tab.ER PO SCH (08:07)
[2017-10-13] MEDS: Amiodarone 200 MG Tab PO SCH (09:51)
[2017-10-13] MEDS ORDERED: Bisacodyl 10 MG Supp ONE (10:37)
[2017-10-13] MEDS ORDERED: LORazepam 1 MG Tab ONE (15:18)
[2017-10-13] MEDS ORDERED: LORazepam 1 MG Tab PO PRN (15:22)
[2017-10-13] MEDS ORDERED: Bisacodyl 10 MG Supp RECTAL PRN (15:23)
[2017-10-13] MEDS: Rivaroxaban 15 MG Tab PO SCH (17:25)
[2017-10-13] MEDS: atorvaSTATin 40 MG Tab PO SCH (19:15)
[2017-10-13] MEDS: Oxybutynin 5 MG Tab.ER PO SCH (19:15)
[2017-10-14] MEDS: Furosemide 40 MG Tab PO SCH (11:27)
[2017-10-14] MEDS: Clopidogrel 75 MG Tab PO SCH (11:27)
[2017-10-14] MEDS: traMADol 50 MG Tab PO PRN ×3 (11:27→23:03)
[2017-10-14] MEDS: Metoprolol Tartrate 50 MG Tab PO SCH (11:28)
[2017-10-14] MEDS: Omeprazole 20 MG Cap.CR PO SCH (11:28)
[2017-10-14] MEDS: Potassium Chloride 20 MEQ Tab.ER PO SCH (11:29)
[2017-10-14] MEDS: Escitalopram 20 MG Tab PO SCH (11:42)
[2017-10-14] MEDS: Megestrol Susp 40 MG/ML ML (240 ML Bottle) PO SCH (11:43)
[2017-10-14] MEDS: Amiodarone 200 MG Tab PO SCH (12:53)
[2017-10-14] MEDS ORDERED: LORazepam 0.5 MG Tab PO PRN (13:51)
[2017-10-14] MEDS: Rivaroxaban 15 MG Tab PO SCH (17:05)
[2017-10-14] MEDS: LORazepam 0.5 MG Tab PO PRN (18:25)
[2017-10-14] MEDS: Oxybutynin 5 MG Tab.ER PO SCH (19:54)
[2017-10-14] MEDS: atorvaSTATin 40 MG Tab PO SCH (19:54)
[2017-10-15] MEDS: LORazepam 0.5 MG Tab PO PRN (02:05)
[2017-10-15] MEDS: Furosemide 40 MG Tab PO SCH (08:07)
[2017-10-15] MEDS: Metoprolol Tartrate 50 MG Tab PO SCH (08:08)
[2017-10-15] MEDS: Potassium Chloride 20 MEQ Tab.ER PO SCH (08:08)
[2017-10-15] MEDS: Omeprazole 20 MG Cap.CR PO SCH (08:08)
[2017-10-15] MEDS: Escitalopram 20 MG Tab PO SCH (08:08)
[2017-10-15] MEDS: Clopidogrel 75 MG Tab PO SCH (08:08)
[2017-10-15] MEDS: Megestrol Susp 40 MG/ML ML (240 ML Bottle) PO SCH (08:08)
--- NOTE | 2017-10-15 09:10 | PCM.PN ---
- General Info Date of Service: 10/15/17 Subjective Update: Patient states he is doing well. He denies any concerns. There are staff reports of concerns over the weekend but he has been doing much better today. Functional Status: Reports: Pain Controlled, Tolerating Diet, Other (decreased appetite) - Review of Systems General: Reports: Weakness, Fatigue HEENT: Reports: No Symptoms Pulmonary: Reports: No Symptoms Cardiovascular: Reports: No Symptoms Gastrointestinal: Reports: Decreased Appetite Genitourinary: Reports: No Symptoms Musculoskeletal: Reports: No Symptoms Skin: Reports: Other (decubitus stage 2 ulcerations) Neurological: Reports: Weakness Psychiatric: Reports: No Symptoms - Patient Data Vitals - Most Recent: Last Vital Signs Temp 37.3 C 10/14/17 23:00 Pulse 66 10/15/17 08:08 Resp 18 10/15/17 08:00 BP 101/63 10/15/17 08:08 Pulse Ox 94 L 10/15/17 08:00 Weight - Most Recent: 74.843 kg I&O - Last 24 Hours: Intake & Output 10/14/17 10/15/17 10/15/17 22:59 06:59 14:59 Intake Total 1290 150 Output Total 400 Balance 890 150 Lab Results Last 24 Hours: Laboratory Results - last 24 hr 10/14/17 Range/Units 18:44 Urine Color Yellow Urine Appearance Clear (CLEAR) Urine pH 7.0 (5.0-8.0) Ur Specific [place] 1.015 (1.003-1.030) Urine Protein Negative (NEGATIVE) mg/dL Urine Glucose (UA) Negative (NEGATIVE) mg/dL Urine Ketones Negative (NEGATIVE) mg/dL Urine Occult Blood Trace-intact H (NEGATIVE) Urine Nitrite Negative (NEGATIVE) Urine Bilirubin Negative (NEGATIVE) Urine Urobilinogen 4.0 H (0.2-1.0) E.U./dL Ur Leukocyte Esterase Negative (NEGATIVE) Urine RBC 0-5 H /HPF Urine WBC Not seen /HPF Ur Squamous Epith Cells Rare /HPF Urine Bacteria Rare /HPF Med Orders - Current: Current Medications Amiodarone HCl (Cordarone) 200 mg PO DAILY@1000 [facility] Last Admin: 10/14/17 12:53 Dose: 200 mg Atorvastatin Calcium (Lipitor) 40 mg PO QPM [facility] Last Admin: 10/14/17 19:54 Dose: 40 mg Bisacodyl (Dulcolax) 10 mg RECTAL DAILY PRN PRN Reason: Constipation Clopidogrel Bisulfate (Plavix) 75 mg PO DAILY [facility] Last Admin: 10/15/17 08:08 Dose: 75 mg Docusate Sodium (Colace) 100 mg PO DAILY PRN PRN Reason: Constipation Escitalopram Oxalate (Lexapro) 10 mg PO DAILY [facility] Last Admin: 10/15/17 08:08 Dose: 10 mg Furosemide (Lasix) 40 mg PO DAILY [facility] Last Admin: 10/15/17 08:07 Dose: 40 mg Lorazepam (Ativan) 0.5 mg PO Q6H PRN PRN Reason: Anxiety Last Admin: 10/15/17 02:05 Dose: 0.5 mg Megestrol Acetate (Megace 40 Mg/Ml Susp) 400 mg PO DAILY [facility] Last Admin: 10/15/17 08:08 Dose: 400 mg Metoprolol Tartrate (Lopressor) 50 mg PO DAILY [facility] Last Admin: 10/15/17 08:08 Dose: 50 mg Mexiletine HCl (Mexitil) 200 mg PO Q8HR [facility] Last Admin: 10/15/17 06:03 Dose: 200 mg Nitroglycerin (Nitrostat) 0.4 mg SL ASDIRECTED PRN PRN Reason: Chest Pain Omeprazole (Omeprazole) 20 mg PO DAILY [facility] Last Admin: 10/15/17 08:08 Dose: 20 mg Oxybutynin Chloride (Oxybutynin Er) 5 mg PO BEDTIME [facility] Last Admin: 10/14/17 19:54 Dose: 5 mg Potassium Chloride (Klor-Con M20) 20 meq PO DAILY [facility] Last Admin: 10/15/17 08:08 Dose: 20 meq Rivaroxaban (Xarelto) 15 mg PO WITHDINNER [facility] Last Admin: 10/14/17 17:05 Dose: 15 mg Tramadol HCl (Ultram) 50 mg PO Q6H PRN PRN Reason: Pain Last Admin: 10/14/17 23:03 Dose: 50 mg Discontinued Medications Amiodarone HCl (Cordarone) 200 mg PO DAILY [facility] Last Admin: 10/03/17 09:25 Dose: Not Given Bisacodyl (Dulcolax) Confirm Administered D[facility] Stop: 10/13/17 10:38 Last Admin: 10/13/17 10:47 Dose: 10 mg Escitalopram Oxalate (Lexapro) 10 mg PO DAILY [facility] Hydromorphone HCl (Dilaudid) Confirm Administered Dose 4 mg .ROUTE .STK-MED ONE Stop: 10/01/17 15:36 Last Admin: 10/01/17 15:44 Dose: Not Given Influenza Virus Vaccine (Fluzone Quad [id number]) 60 mcg IM .ONCE ONE Stop: 10/01/17 15:45 Last Admin: 10/02/17 07:32 Dose: Not Given Lidocaine HCl (Xylocaine 2% Viscous) 20 ml PO ONETIME ONE Stop: 10/04/17 13:47 Last Admin: 10/04/17 14:07 Dose: 20 ml Lidocaine HCl (Xylocaine 2% Viscous) Confirm Administered Dose 30 ml .ROUTE .STK -MED ONE Stop: 10/04/17 13:56 Last Admin: 10/04/17 14:05 Dose: Not Given Lorazepam (Ativan) Confirm Administered Dose 1 mg .ROUTE .ST-MED ONE Stop: 10/13/17 15:19 Last Admin: 10/13/17 15:21 Dose: 1 mg Lorazepam (Ativan) 1 mg PO Q8H PRN PRN Reason: Agitation Last Admin: 10/14/17 00:48 Dose: 1 mg Lorazepam (Ativan) 0.5 mg PO Q8H PRN PRN Reason: Agitation Last Admin: 10/14/17 16:52 Dose: 0.5 mg Metoprolol Tartrate (Lopressor) 100 mg PO DAILY [facility] Last Admin: 10/03/17 09:25 Dose: Not Given Mexiletine Hcl 200 (Mg Cap Own Med) 0 mg PO Q8HR [facility] Last Admin: 10/02/17 07:34 Dose: 200 mg Oxycodone HCl (Oxycodone) 5 mg PO Q4H PRN PRN Reason: Pain Last Admin: 10/11/17 16:50 Dose: 5 mg Pneumococcal Polyvalent Vaccine (Pneumovax 23) 0.5 ml IM .ONCE ONE Stop: 10/01/17 10:32 Last Admin: 10/02/17 07:32 Dose: Not Given Tamsulosin HCl (Flomax) 0.4 mg PO DAILY [facility] Last Admin: 10/03/17 09:25 Dose: Not Given Tuberculin PPD (Aplisol) 5 unit IDE ONETIME ONE Stop: 10/01/17 10:05 Last Admin: 10/03/17 10:19 Dose: Not Given - Exam General: Alert, Cooperative. No: Oriented HEENT: Pupils Equal, Pupils Reactive, EOMI Neck: Supple Lungs: Clear to Auscultation, Normal Respiratory Effort Cardiovascular: Regular Rate, Regular Rhythm GI/Abdominal Exam: Normal Bowel Sounds Extremities: Normal Inspection Wound/Incisions: Decubitis Neurological: No New Focal Deficit - Problem List Review Problem List Initiated/Reviewed/Updated: Yes - Assessment Assessment:: Sacral fracture improving Resolving thigh hematoma Stable hemoglobin - Plan Plan:: Pt has been doing well. He has been ambulating with physical therapy. He still has sacral pain and discomfort but controlled on pain meds. His sacral decubitus has been healing.CBC shows hemoglobin of 17.1 and his BMP is normal. Duoderm in place.Will continue wound care and physical therapy and when cleared by physical therapy will plan on transfer to care center. 10/08/17 Patient continues to improve. He is working well with PT. Sacral decubitus healing well. Trial of megace for weight loss and decreased appetite - discussed risks and benefits and side effects with patient and he is willing to try the medication. 10/17/17 Patient is stable but concerns of a slow deconditioning and worsening weakness with non-healing decubitus ulcers and increasing confusion.
[2017-10-15] MEDS: Amiodarone 200 MG Tab PO SCH (11:08)
[2017-10-16] MEDS: atorvaSTATin 40 MG Tab PO SCH ×2 (03:23→20:01)
[2017-10-16] MEDS: Rivaroxaban 15 MG Tab PO SCH ×2 (03:23→17:17)
[2017-10-16] MEDS: Oxybutynin 5 MG Tab.ER PO SCH ×2 (03:23→20:02)
[2017-10-16] MEDS: traMADol 50 MG Tab PO PRN ×2 (05:53→20:02)
[2017-10-16] MEDS: Furosemide 40 MG Tab PO SCH (08:10)
[2017-10-16] MEDS: Potassium Chloride 20 MEQ Tab.ER PO SCH (08:10)
[2017-10-16] MEDS: Clopidogrel 75 MG Tab PO SCH (08:10)
[2017-10-16] MEDS: Omeprazole 20 MG Cap.CR PO SCH (08:10)
[2017-10-16] MEDS: Metoprolol Tartrate 50 MG Tab PO SCH (08:10)
[2017-10-16] MEDS: Escitalopram 20 MG Tab PO SCH (08:10)
[2017-10-16] MEDS: Megestrol Susp 40 MG/ML ML (240 ML Bottle) PO SCH (08:11)
[2017-10-16] MEDS: Amiodarone 200 MG Tab PO SCH (10:44)
[2017-10-16] MEDS: LORazepam 0.5 MG Tab PO PRN (20:01)
[2017-10-17] MEDS: Potassium Chloride 20 MEQ Tab.ER PO SCH (08:04)
[2017-10-17] MEDS: Metoprolol Tartrate 50 MG Tab PO SCH (08:05)
[2017-10-17] MEDS: Furosemide 40 MG Tab PO SCH (08:07)
[2017-10-17] MEDS: Omeprazole 20 MG Cap.CR PO SCH (08:07)
[2017-10-17] MEDS: Clopidogrel 75 MG Tab PO SCH (08:08)
[2017-10-17] MEDS: Escitalopram 20 MG Tab PO SCH (08:08)
[2017-10-17] MEDS: Megestrol Susp 40 MG/ML ML (240 ML Bottle) PO SCH (08:10)
[2017-10-17] MEDS: Amiodarone 200 MG Tab PO SCH (10:45)
[2017-10-17] MEDS: LORazepam 0.5 MG Tab PO PRN ×2 (16:13→20:48)
[2017-10-17] MEDS ORDERED: Sodium Chloride 0.9% 10 ML Syringe FLUSH PRN (16:57)
[2017-10-17] MEDS ORDERED: Central Total Parenteral Nutrition Bag IV SCH (17:00)
--- NOTE | 2017-10-17 17:16 | PCM.PN ---
- General Info Date of Service: 10/17/17 Subjective Update: Discussed with patient and present. Patient has severe Alzhiemers dementia. He can recall that he is in [place] from day to day at times but is unable to recall date, time or season. He feels it was 2003 on Sunday and today he felt it was 1979. He can recall that I am Dr. Villanueva which has been consistent although Dr. Saucedo is his primary care provider. He has lost 26lbs over the course of the month despite efforts with increased caloric intake and protein shakes and liquid shakes. states he has had diarrhea for the past month. and son Isael are the decision makers and daughter was recently here this weekend. Patient does appear alert but quickly losing weight and getting weak. He has not been able to work with PT/OT. He continues to have sores that are not healing of the buttocks and back. - Review of Systems General: Reports: Weakness HEENT: Reports: No Symptoms Pulmonary: Reports: No Symptoms Cardiovascular: Reports: No Symptoms Gastrointestinal: Reports: Decreased Appetite Genitourinary: Reports: No Symptoms Musculoskeletal: Reports: No Symptoms Skin: Reports: No Symptoms Neurological: Reports: Weakness Psychiatric: Reports: No Symptoms - Patient Data Vitals - Most Recent: Last Vital Signs Temp 36.8 C 10/17/17 08:00 Pulse 65 10/17/17 08:05 Resp 18 10/17/17 08:00 BP 130/67 10/17/17 08:05 Pulse Ox 97 10/17/17 08:00 Weight - Most Recent: 74.389 kg I&O - Last 24 Hours: Intake & Output 10/17/17 10/17/17 10/17/17 06:59 14:59 22:59 Intake Total 75 Balance 75 Med Orders - Current: Current Medications Amiodarone HCl (Cordarone) 200 mg PO DAILY@1000 [facility] Last Admin: 10/17/17 10:45 Dose: 200 mg Atorvastatin Calcium (Lipitor) 40 mg PO QPM [facility] Last Admin: 10/16/17 20:01 Dose: 40 mg Bisacodyl (Dulcolax) 10 mg RECTAL DAILY PRN PRN Reason: Constipation Clopidogrel Bisulfate (Plavix) 75 mg PO DAILY [facility] Last Admin: 10/17/17 08:08 Dose: 75 mg Docusate Sodium (Colace) 100 mg PO DAILY PRN PRN Reason: Constipation Escitalopram Oxalate (Lexapro) 10 mg PO DAILY [facility] Last Admin: 10/17/17 08:08 Dose: 10 mg Furosemide (Lasix) 40 mg PO DAILY [facility] Last Admin: 10/17/17 08:07 Dose: 40 mg Lorazepam (Ativan) 0.5 mg PO Q6H PRN PRN Reason: Anxiety Last Admin: 10/17/17 16:13 Dose: 0.5 mg Megestrol Acetate (Megace 40 Mg/Ml Susp) 400 mg PO DAILY [facility] Last Admin: 10/17/17 08:10 Dose: 400 mg Metoprolol Tartrate (Lopressor) 50 mg PO DAILY [facility] Last Admin: 10/17/17 08:05 Dose: 50 mg Mexiletine HCl (Mexitil) 200 mg PO Q8HR [facility] Last Admin: 10/17/17 14:26 Dose: 200 mg Nitroglycerin (Nitrostat) 0.4 mg SL ASDIRECTED PRN PRN Reason: Chest Pain Non-Formulary Medication (Total Parenteral Nutrition, Central) 1,000 ml IV ASDIRECTED [facility]; Protocol Omeprazole (Omeprazole) 20 mg PO DAILY [facility] Last Admin: 10/17/17 08:07 Dose: 20 mg Oxybutynin Chloride (Oxybutynin Er) 5 mg PO BEDTIME [facility] Last Admin: 10/16/17 20:02 Dose: 5 mg Potassium Chloride (Klor-Con M20) 20 meq PO DAILY [facility] Last Admin: 10/17/17 08:04 Dose: 20 meq Rivaroxaban (Xarelto) 15 mg PO WITHDINNER [facility] Last Admin: 10/16/17 17:17 Dose: 15 mg Sodium Chloride (Saline Flush) 10 ml FLUSH ASDIRECTED PRN PRN Reason: Keep Vein Open Tramadol HCl (Ultram) 50 mg PO Q6H PRN PRN Reason: Pain Last Admin: 10/16/17 20:02 Dose: 50 mg Discontinued Medications Amiodarone HCl (Cordarone) 200 mg PO DAILY [facility] Last Admin: 10/03/17 09:25 Dose: Not Given Bisacodyl (Dulcolax) Confirm Administered Dose 10 mg .ROUTE .[facility]-MED ONE Stop: 10/13/17 10:38 Last Admin: 10/13/17 10:47 Dose: 10 mg Escitalopram Oxalate (Lexapro) 10 mg PO DAILY [facility] Hydromorphone HCl (Dilaudid) Confirm Administered Dose 4 mg .ROUTE .STK-MED ONE Stop: 10/01/17 15:36 Last Admin: 10/01/17 15:44 Dose: Not Given Influenza Virus Vaccine (Fluzone Quad [id number]) 60 mcg IM .ONCE ONE Stop: 10/01/17 15:45 Last Admin: 10/02/17 07:32 Dose: Not Given Lidocaine HCl (Xylocaine 2% Viscous) 20 ml PO ONETIME ONE Stop: 10/04/17 13:47 Last Admin: 10/04/17 14:07 Dose: 20 ml Lidocaine HCl (Xylocaine 2% Viscous) Confirm Administered Dose 30 ml .ROUTE .STK -MED ONE Stop: 10/04/17 13:56 Last Admin: 10/04/17 14:05 Dose: Not Given Lorazepam (Ativan) Confirm Administered Dose 1 mg .ROUTE .STK-MED ONE Stop: 10/13/17 15:19 Last Admin: 10/13/17 15:21 Dose: 1 mg Lorazepam (Ativan) 1 mg PO Q8H PRN PRN Reason: Agitation Last Admin: 10/14/17 00:48 Dose: 1 mg Lorazepam (Ativan) 0.5 mg PO Q8H PRN PRN Reason: Agitation Last Admin: 10/14/17 16:52 Dose: 0.5 mg Metoprolol Tartrate (Lopressor) 100 mg PO DAILY [facility] Last Admin: 10/03/17 09:25 Dose: Not Given Mexiletine Hcl 200 (Mg Cap Own Med) 0 mg PO Q8HR [facility] Last Admin: 10/02/17 07:34 Dose: 200 mg Oxycodone HCl (Oxycodone) 5 mg PO Q4H PRN PRN Reason: Pain Last Admin: 10/11/17 16:50 Dose: 5 mg Pneumococcal Polyvalent Vaccine (Pneumovax 23) 0.5 ml IM .ONCE ONE Stop: 10/01/17 10:32 Last Admin: 10/02/17 07:32 Dose: Not Given Tamsulosin HCl (Flomax) 0.4 mg PO DAILY [facility] Last Admin: 10/03/17 09:25 Dose: Not Given Tuberculin PPD (Aplisol) 5 unit IDERM ONETIME ONE Stop: 10/01/17 10:05 Last Admin: 10/03/17 10:19 Dose: Not Given - Exam General: Alert, Cooperative, No Acute Distress. No: Oriented HEENT: Pupils Equal, Pupils Reactive, EOMI Neck: Supple Lungs: Clear to Auscultation, Normal Respiratory Effort Cardiovascular: Regular Rate, Regular Rhythm GI/Abdominal Exam: Normal Bowel Sounds Back Exam: Normal Inspection Extremities: Normal Inspection Skin: Warm, Dry Wound/Incisions: Decubitis - Problem List Review Problem List Initiated/Reviewed/Updated: Yes - My Orders Last 24 Hours: My Active Orders 10/17/17 16:57 CLOSTRIDIUM DIFFICILE BY PCR [RM] Routine Sodium Chloride 0.9% [Saline Flush] 10 ml FLUSH ASDIRECTED PRN Peripheral IV Insertion Adult [OM.PC] Routine 10/17/17 17:00 Central TPN [Total Parenteral Nutrition, Central] 1,000 ml IV ASDIRECTED - Assessment Assessment:: Sacral fracture improving Resolving thigh hematoma Stable hemoglobin - Plan Plan:: Pt has been doing well. He has been ambulating with physical therapy. He still has sacral pain and discomfort but controlled on pain meds. His sacral decubitus has been healing.CBC shows hemoglobin of 17.1 and his BMP is normal. Duoderm in place.Will continue wound care and physical therapy and when cleared by physical therapy will plan on transfer to care center. 10/08/17 Patient continues to improve. He is working well with PT. Sacral decubitus healing well. Trial of megace for weight loss and decreased appetite - discussed risks and benefits and side effects with patient and he is willing to try the medication. 10/17/17 Patient Concerns of continued weight loss addressed. Per , son daughter and herself are in consensus that they would not like drastic interventions due to the quick deterioration and weight loss and weakness. states daughter was upset this weekend due to the progressive and quick decline. Discussion of PEG tube which we will not implement at this time and may not in the future either unless there is a change. We will try TPN and fluid hydration with continued increased caloric and nutritional intake with boost and enusre and other forms of protein. Patient and agreeable to current plan of care.
[2017-10-17] MEDS: Rivaroxaban 15 MG Tab PO SCH (17:45)
[2017-10-17] MEDS: atorvaSTATin 40 MG Tab PO SCH (20:48)
[2017-10-17] MEDS: Oxybutynin 5 MG Tab.ER PO SCH (20:48)
[2017-10-17] MEDS: traMADol 50 MG Tab PO PRN (20:49)
[2017-10-18 03:13] LABS: HBSAG SCREEN Negative (Negative); HEP A AB, IGM Negative (Negative); HEP B CORE AB, IGM Negative (Negative); HEP C VIRUS AB <0.1 s/co ratio (0.0-0.9)
[2017-10-18] MEDS: Megestrol Susp 40 MG/ML ML (240 ML Bottle) PO SCH (11:22)
[2017-10-18] MEDS: Omeprazole 20 MG Cap.CR PO SCH (11:23)
[2017-10-18] MEDS: Potassium Chloride 20 MEQ Tab.ER PO SCH (11:23)
[2017-10-18] MEDS: Furosemide 40 MG Tab PO SCH (11:23)
[2017-10-18] MEDS: Metoprolol Tartrate 50 MG Tab PO SCH (11:24)
[2017-10-18] MEDS: Clopidogrel 75 MG Tab PO SCH (11:24)
[2017-10-18] MEDS: Escitalopram 20 MG Tab PO SCH (11:25)
[2017-10-18 11:33] VITALS: BP 123/81
[2017-10-18] MEDS ORDERED: MAGNESIUM SULFATE IV SCH ×5 (13:00)
[2017-10-18] MEDS ORDERED: [UNRECOGNIZED DRUG - OTHER] IV SCH ×5 (13:00)
[2017-10-18] MEDS ORDERED: FOLIC ACID IV SCH ×5 (13:00)
[2017-10-18] MEDS ORDERED: MVI IV SCH ×5 (13:00)
[2017-10-18] MEDS ORDERED: THIAMINE IV SCH ×5 (13:00)
[2017-10-18] MEDS: Amiodarone 200 MG Tab PO SCH (13:32)
[2017-10-18] MEDS: atorvaSTATin 40 MG Tab PO SCH (19:44)
[2017-10-18] MEDS: Oxybutynin 5 MG Tab.ER PO SCH (19:45)
[2017-10-18] MEDS: Rivaroxaban 15 MG Tab PO SCH (19:46)
[2017-10-18] MEDS: LORazepam 0.5 MG Tab PO PRN (19:58)
--- NOTE | 2017-10-26 15:24 | PCM.DCSUM1 ---
Discharge Summary - Hospital Course Brief History: This is an 87yo M who was recently admitted to the hospital for confusion and weakness and then transferred to [facility] for deconditioning and debility. He continued to decline and lose weight and after discussion with family we will start a trial of NG tube feeding and possibly TPN and fluids. Comfort care and the care center have both been addressed and his code status at this time remains Full Code. - Discharge Data Discharge Date: 10/18/17 Discharge Disposition: DC/Tfer to Acute Hospital 02 Condition: Fair - Patient Summary/Data Consults: Consultations 10/01/17 10:04 Consult to [facility] [CONS] Routine Comment: Physician Instructions: OT Evaluation and Treatment [CONS] Routine Please Evaluate and Treat. OT Reason for Consult: ADL's This query below is only for informational purposes and is not editable. Admission Diagnosis/Problem: Pain management PT Evaluation and Treatment [CONS] Routine Please Evaluate and Treat. PT Reason for Consult: Wound Care Special Instructions: lso he has sacral fracture, needs to start ambulation and strenghtening of the lower extremity. This query below is only for informational purposes and is not editable. Admission Diagnosis/Problem: Pain management - Discharge Plan Home Medications: Home Meds Metoprolol Tartrate [Lopressor] 50 mg PO DAILY 10/08/14 [History] Amiodarone [Cordarone] 200 mg PO DAILY 09/12/17 [History] Mexiletine HCl 200 mg PO Q8HR 09/28/17 [History] LORazepam [Ativan] 0.5 mg PO Q6H PRN tablet 10/18/17 [Rx] Morphine 2 mg IVPUSH Q1H PRN syringe 10/25/17 [Rx] - Discharge Summary/Plan Comment DC Time >30 min.: Yes Discharge Summary/Plan Comment: Patient to be placed back into inpatient care due to the severe muscle deconditioning and severe weight loss. We will place an NG tube for feeding and consider TPN next week if NG feeding and fluids fail. Weight daily. Family agree with current management plan and also consideration of care center and comfort cares discussed. Code status discussed and will discuss with son Isael and daughter. - General Info Date of Service: 10/18/17 Functional Status: Reports: Pain Controlled. Denies: Tolerating Diet, Ambulating - Review of Systems General: Reports: Weakness HEENT: Reports: No Symptoms Pulmonary: Reports: Shortness of Breath Cardiovascular: Reports: No Symptoms Gastrointestinal: Reports: No Symptoms Genitourinary: Reports: No Symptoms Musculoskeletal: Reports: No Symptoms Neurological: Reports: Confusion, Weakness Psychiatric: Reports: Confusion - Patient Data Vitals - Most Recent: Last Vital Signs Temp 36.8 C 10/17/17 08:00 Pulse 109 H 10/18/17 11:24 Resp 18 10/17/17 08:00 BP 123/81 10/18/17 11:24 Pulse Ox 97 10/17/17 08:00 Weight - Most Recent: 74.389 kg Med Orders - Current: Current Medications Discontinued Medications Amiodarone HCl (Cordarone) 200 mg PO DAILY [facility] Last Admin: 10/03/17 09:25 Dose: Not Given Amiodarone HCl (Cordarone) 200 mg PO DAILY@1000 [facility] Last Admin: 10/18/17 13:32 Dose: 200 mg Atorvastatin Calcium (Lipitor) 40 mg PO QPM [facility] Last Admin: 10/18/17 19:44 Dose: 40 mg Bisacodyl (Dulcolax) Confirm Administered Dose 10 mg .ROUTE .STK-MED ONE Stop: 10/13/17 10:38 Last Admin: 10/13/17 10:47 Dose: 10 mg Bisacodyl (Dulcolax) 10 mg RECTAL DAILY PRN PRN Reason: Constipation Clopidogrel Bisulfate (Plavix) 75 mg PO DAILY [facility] Last Admin: 10/18/17 11:24 Dose: 75 mg Docusate Sodium (Colace) 100 mg PO DAILY PRN PRN Reason: Constipation Escitalopram Oxalate (Lexapro) 10 mg PO DAILY [facility] Escitalopram Oxalate (Lexapro) 10 mg PO DAILY [facility] Last Admin: 10/18/17 11:25 Dose: 10 mg Furosemide (Lasix) 40 mg PO DAILY [facility] Last Admin: 10/18/17 11:23 Dose: 40 mg Hydromorphone HCl (Dilaudid) Confirm Administered Dose 4 mg .ROUTE .STK-MED ONE Stop: 10/01/17 15:36 Last Admin: 10/01/17 15:44 Dose: Not Given Thiamine HCl 100 mg/ Folic Acid 1 mg/ Magnesium Sulfate 2 gm/ Multivitamins/ Minerals 10 ml/ Lactated Ringer's 1,015.2 mls @ 125 mls/hr IV ASDIRECTED [facility] Stop: 10/18/17 23:59 Influenza Virus Vaccine (Fluzone Quad 0031-2797) 60 mcg IM .ONCE ONE Stop: 10/01/17 15:45 Last Admin: 10/02/17 07:32 Dose: Not Given Lidocaine HCl (Xylocaine 2% Viscous) 20 ml PO ONETIME ONE Stop: 10/04/17 13:47 Last Admin: 10/04/17 14:07 Dose: 20 ml Lidocaine HCl (Xylocaine 2% Viscous) Confirm Administered Dose 30 ml .ROUTE .STK -MED ONE Stop: 10/04/17 13:56 Last Admin: 10/04/17 14:05 Dose: Not Given Lorazepam (Ativan) Confirm Administered Dose 1 mg .ROUTE .STK-MED ONE Stop: 10/13/17 15:19 Last Admin: 10/13/17 15:21 Dose: 1 mg Lorazepam (Ativan) 1 mg PO Q8H PRN PRN Reason: Agitation Last Admin: 10/14/17 00:48 Dose: 1 mg Lorazepam (Ativan) 0.5 mg PO Q8H PRN PRN Reason: Agitation Last Admin: 10/14/17 16:52 Dose: 0.5 mg Lorazepam (Ativan) 0.5 mg PO Q6H PRN PRN Reason: Anxiety Last Admin: 10/18/17 19:58 Dose: 0.5 mg Megestrol Acetate (Megace 40 Mg/Ml Susp) 400 mg PO DAILY [facility] Last Admin: 10/18/17 11:22 Dose: Not Given Metoprolol Tartrate (Lopressor) 100 mg PO DAILY [facility] Last Admin: 10/03/17 09:25 Dose: Not Given Metoprolol Tartrate (Lopressor) 50 mg PO DAILY [facility] Last Admin: 10/18/17 11:24 Dose: 50 mg Mexiletine HCl (Mexitil) 200 mg PO Q8HR [facility] Last Admin: 10/18/17 19:46 Dose: Not Given Nitroglycerin (Nitrostat) 0.4 mg SL ASDIRECTED PRN PRN Reason: Chest Pain Mexiletine Hcl 200 (Mg Cap Own Med) 0 mg PO Q8HR [facility] Last Admin: 10/02/17 07:34 Dose: 200 mg Omeprazole (Omeprazole) 20 mg PO DAILY [facility] Last Admin: 05/10/18 11:23 Dose: 20 mg Oxybutynin Chloride (Oxybutynin Er) 5 mg PO BEDTIME [facility] Last Admin: 10/18/17 19:45 Dose: 5 mg Oxycodone HCl (Oxycodone) 5 mg PO Q4H PRN PRN Reason: Pain Last Admin: 10/11/17 16:50 Dose: 5 mg Pneumococcal Polyvalent Vaccine (Pneumovax 23) 0.5 ml IM .ONCE ONE Stop: 10/01/17 10:32 Last Admin: 10/02/17 07:32 Dose: Not Given Potassium Chloride (Klor-Con M20) 20 meq PO DAILY [facility] Last Admin: 10/18/17 11:23 Dose: 20 meq Rivaroxaban (Xarelto) 15 mg PO WITHDINNER [facility] Last Admin: 10/18/17 19:46 Dose: Not Given Sodium Chloride (Saline Flush) 10 ml FLUSH ASDIRECTED PRN PRN Reason: Keep Vein Open Tamsulosin HCl (Flomax) 0.4 mg PO DAILY [facility] Last Admin: 10/03/17 09:25 Dose: Not Given Tramadol HCl (Ultram) 50 mg PO Q6H PRN PRN Reason: Pain Last Admin: 10/17/17 20:49 Dose: 50 mg Tuberculin PPD (Aplisol) 5 unit IDERM ONETIME ONE Stop: 10/01/17 10:05 Last Admin: 10/03/17 10:19 Dose: Not Given - Exam Quality Assessment: Reports: Supplemental Oxygen General: Reports: Obtunded HEENT: Reports: Pupils Equal, Pupils Reactive, EOMI Lungs: Reports: Normal Respiratory Effort, Crackles Cardiovascular: Reports: Regular Rate, Regular Rhythm GI/Abdominal Exam: Normal Bowel Sounds Extremities: Normal Inspection Wound/Incisions: Reports: Drainage, Decubitis Neurological: Reports: No New Focal Deficit
== END 2017-10-18 11:50 | DRG 561 ==
LOC: LB.MS 10:04 → UNDOADMIN 10:06 → LB.MS 15:18
PROVIDERS: ADMIT Family Medicine; ATTEND Family Medicine
DX: S32.110D Nondisplaced Zone I fracture of sacrum, subsequent encounter for fracture with routine healing (principal); S70.11XD Contusion of right thigh, subsequent encounter; L89.151 Pressure ulcer of sacral region, stage 1; W19.XXXD Unspecified fall, subsequent encounter; R53.1 Weakness; I50.9 Heart failure, unspecified; Z79.01 Long term (current) use of anticoagulants; G30.9 Alzheimer's disease, unspecified; F02.80 Dementia in other diseases classified elsewhere, unspecified severity, without behavioral disturbance, psychotic disturbance, mood disturbance, and anxiety; R63.4 Abnormal weight loss
CPT/HCPCS: 36415; 51701; 51798; 80048; 80053; 80074; 81001; 82140; 82306; 82607; 84403; 85025; 86580; 87493; 97110-GO; 97110-GP; 97165-GO; 97530-GO; 97530-GP; 97535-GO; 97597-GP; A9270-GY

== ENCOUNTER 2017-10-18 09:38 | Inpatient (IN) | payer MEDICARE, BC ==
[2017-10-18] MEDS ORDERED: Sodium Chloride 0.9% 10 ML Syringe FLUSH PRN ×2 (11:51→11:53)
[2017-10-18] MEDS ORDERED: Docusate Sodium 100 MG Cap PO PRN (11:53)
[2017-10-18] MEDS ORDERED: Bisacodyl 10 MG Supp RECTAL PRN (11:53)
[2017-10-18] MEDS ORDERED: Nitroglycerin 0.4 MG Tab.SL SL PRN (11:53)
[2017-10-18] MEDS ORDERED: MVI, Adult with Vitamin K 10 ML SDV IV SCH (12:00)
[2017-10-18] MEDS ORDERED: Magnesium Sulfate (4.06 MEQ/ML) 1 GM/2 ML SDV IV SCH (12:00)
[2017-10-18] MEDS ORDERED: Thiamine 200 MG/2 ML MDV IV SCH (12:00)
[2017-10-18] MEDS ORDERED: Folic Acid 50 MG/10 ML MDV IV SCH (12:00)
[2017-10-18] MEDS ORDERED: Central Total Parenteral Nutrition Bag IV SCH (12:00)
[2017-10-18] MEDS ORDERED: Sodium Chloride 0.9% 1,000 ML IV ONE (12:00)
[2017-10-18] MEDS ORDERED: LACTATED RINGERS IV SCH (12:00)
--- NOTE | 2017-10-18 12:35 | PCM.HP ---
H&P History of Present Illness - General Date of Service: 10/18/17 Admit Problem/Dx: Admission Diagnosis/Problem Admission Diagnosis/Problem Severe muscle deconditioning Source of Information: Patient, Family, Old Records, RN Notes Reviewed, Significant Other History Limitations: Reports: Other (Dementia) - History of Present Illness Initial Comments - Free Text/Narative: This is an 87yo M who was recently admitted to the hospital for confusion and weakness and then transferred to [facility] [place] for deconditioning and debility. He continued to decline and lose weight and after discussion with family we will start a trial of NG tube feeding and possibly TPN and fluids. Comfort care and the care center have both been addressed and his code status at this time remains Full Code. Onset of Symptoms: Reports: Gradual Duration of Symptoms: Reports: Getting Worse Location: Reports: Generalized Improves with: Reports: None Worsens with: Reports: None Associated Symptoms: Reports: Confusion, Weakness - Related Data Allergies/Adverse Reactions: Allergies Allergy/AdvReac Type Severity Reaction Status Date / Time No Known Allergies Allergy Verified 10/15/17 09:02 Home Medications: Home Meds Metoprolol Tartrate [Lopressor] 50 mg PO DAILY 10/08/14 [History] Amiodarone [Cordarone] 200 mg PO DAILY 09/12/17 [History] Clopidogrel [Plavix] 75 mg PO DAILY 09/12/17 [History] Escitalopram [Lexapro] 10 mg PO DAILY 09/12/17 [History] Furosemide [Lasix] 40 mg PO DAILY 09/12/17 [History] Nitroglycerin [Nitrostat] 0.4 mg SL ASDIRECTED PRN 09/12/17 [History] Potassium Chloride 20 meq PO DAILY 09/12/17 [History] Rivaroxaban [Xarelto] 15 mg PO DAILY 09/12/17 [History] atorvaSTATin [Lipitor] 40 mg PO QPM 09/12/17 [History] Mexiletine HCl 200 mg PO Q8HR 09/28/17 [History] Docusate Sodium [Colace] 100 mg PO DAILY PRN cap 10/01/17 [Rx] Bisacodyl [Dulcolax] 10 mg RECTAL DAILY PRN supp 10/18/17 [Rx] Escitalopram [Lexapro] 10 mg PO DAILY tablet 10/18/17 [Rx] Folic Acid 1 mg IV ASDIRECTED mdv 10/18/17 [Rx] LORazepam [Ativan] 0.5 mg PO Q6H PRN tablet 10/18/17 [Rx] Lactated Ringers [Ringers, Lactated] 1,000 ml IV ASDIRECTED bag 10/18/17 [Rx] MVI, Adult with Vitamin K [Infuvite Adult] 10 ml IV ASDIRECTED sdv 10/18/17 [Rx ] Magnesium Sulfate [Magnesium Sulfate 50%] 2 gm IV ASDIRECTED sdv 10/18/17 [Rx] Mexiletine 200 mg PO Q8HR cap 10/18/17 [Rx] Miscellaneous Medical Supply [DME for Prescription] 1,000 ml IV ASDIRECTED each 10/18/17 [Rx] Oxybutynin [Oxybutynin ER] 5 mg PO BEDTIME tab.er 10/18/17 [Rx] Rivaroxaban [Xarelto] 15 mg PO WITHDINNER tablet 10/18/17 [Rx] Sodium Chloride 0.9% [Saline Flush] 10 ml FLUSH ASDIRECTED PRN syringe [Rx] Thiamine [Vitamin B-1] 100 mg IV ASDIRECTED mdv 10/18/17 [Rx] Past Medical History HEENT History: Reports: Impaired Vision Cardiovascular History: Reports: Automatic Implantable Cardioverter Defibrillators, Heart Failure, Hypertension, Pacemaker Respiratory History: Reports: None Other Gastrointestinal History: Cholescystitis Genitourinary History: Reports: Retention, Urinary, UTI, Recurrent Other Genitourinary History: Cystitis Musculoskeletal History: Reports: Fracture, RA Other Musculoskeletal History: non-diplaced fx pelvis, L-2.L-3 fx Psychiatric History: Reports: Depression Oncologic (Cancer) History: Reports: None Dermatologic History: Reports: Other (See Below) Other Dermatologic History: severly dry, scaly skin - Infectious Disease History Infectious Disease History: Reports: Chicken Pox, Measles, Mumps - Past Surgical History Head Surgeries/Procedures: Reports: None HEENT Surgical History: Reports: Other (See Below) Other HEENT Surgeries/Procedures: Occular Lens Implant x2. hearing well per patient Cardiovascular Surgical History: Reports: AICD, Pacer Respiratory Surgical History: Reports: None GI Surgical History: Reports: Cholecystectomy Male Surgical History: Reports: None Musculoskeletal Surgical History: Reports: None Social & Family History - Family History Family Medical History: Noncontributory - Caffeine Use Caffeine Use: Reports: Soda Other Caffeine Use: 1 a day - Living Situation & Occupation Living situation: Reports: Occupation: Retired H&P Review of Systems - Review of Systems: Review Of Systems: ROS reveals no pertinent complaints other than HPI. Exam - Exam Exam: See Below - Exam General: Alert, Cooperative. No: Oriented HEENT: PERRLA, Conjunctiva Clear Neck: Supple, Trachea Midline Lungs: Clear to Auscultation, Normal Respiratory Effort Cardiovascular: Regular Rate, Regular Rhythm GI/Abdominal Exam: Normal Bowel Sounds Extremities: Normal Inspection Skin: Wound, Decubitis Neurological: Cranial Nerves Intact Neuro Extensive - Mental Status: Alert, Disorientation to Time, Memory Loss- Recent Events, Nl Response to Commands. No: Oriented x3 Neuro Extensive - Motor, Sensory, Reflexes: CN II-XII Intact - Problem List (1) Dementia SNOMED Code(s): 46491113 ICD Code: F03.90 - UNSPECIFIED DEMENTIA WITHOUT BEHAVIORAL DISTURBANCE Status: Acute (2) Debility SNOMED Code(s): 17459574 ICD Code: R53.81 - OTHER MALAISE Status: Acute (3) Severe muscle deconditioning SNOMED Code(s): 797761784 ICD Code: R29.898 - OTH SYMPTOMS AND SIGNS INVOLVING THE MUSCULOSKELETAL SYSTEM Status: Acute (4) Weight loss, non-intentional SNOMED Code(s): 939323375 ICD Code: R63.4 - ABNORMAL WEIGHT LOSS Status: Acute (5) Broken skin SNOMED Code(s): 806710688 ICD Code: R23.8 - OTHER SKIN CHANGES Status: Acute (6) Weakness generalized SNOMED Code(s): 70507663 ICD Code: R53.1 - WEAKNESS Status: Acute (7) Anemia SNOMED Code(s): 178893580 ICD Code: D64.9 - ANEMIA, UNSPECIFIED Status: Chronic Priority: Medium Qualifiers: Anemia type: unspecified type Qualified Code(s): D64.9 - Anemia, unspecified (8) Chronic renal disease SNOMED Code(s): 843415361 ICD Code: N18.9 - CHRONIC KIDNEY DISEASE, UNSPECIFIED Status: Chronic Priority: Medium Qualifiers: Chronic kidney disease stage: stage 3 (moderate) Qualified Code(s): N18.3 - Chronic kidney disease, stage 3 (moderate) (9) Degenerative joint disease involving multiple joints SNOMED Code(s): 862105013 ICD Code: M15.9 - POLYOSTEOARTHRITIS, UNSPECIFIED Status: Chronic Priority: High Qualifiers: Osteoarthritis type: unspecified Qualified Code(s): M15.9 - Polyosteoarthritis, unspecified Problem List Initiated/Reviewed/Updated: Yes Orders Last 24hrs: Active Orders 24 hr Category Date Time Status Patient Status [ADT] Routine ADT 10/18/17 11:51 Ordered Oxygen Therapy [RC] PRN Care 10/18/17 11:51 Ordered VTE/DVT Education [RC] Per Unit Routine Care 10/18/17 11:51 Ordered Vital Signs [RC] Q4H Care 10/18/17 11:51 Ordered Consult to Wound Care Services [CONS] Routine Cons 10/18/17 11:51 Ordered Amiodarone [Cordarone] Med 10/19/17 08:00 Ordered 200 mg PO DAILY Bisacodyl [Dulcolax] Med 10/18/17 11:53 Ordered 10 mg RECTAL DAILY PRN Central TPN [Total Parenteral Nutrition, Central] Med 10/18/17 12:00 Ordered 1,000 ml IV ASDIRECTED Clopidogrel [Plavix] Med 10/19/17 08:00 Ordered 75 mg PO DAILY Docusate Sodium [Colace] Med 10/18/17 11:53 Ordered 100 mg PO DAILY PRN Escitalopram [Lexapro] Med 10/19/17 08:00 Ordered 10 mg PO DAILY Folic Acid Med 10/18/17 12:00 Ordered 1 mg IV ASDIRECTED Furosemide [Lasix] Med 10/19/17 08:00 Ordered 40 mg PO DAILY LORazepam [Ativan] Med 10/18/17 11:53 Ordered 0.5 mg PO Q6H PRN Lactated Ringers [Ringers, Lactated] Med 10/18/17 12:00 Ordered 1,000 ml IV ASDIRECTED MVI, Adult with Vitamin K [Infuvite Adult] Med 10/18/17 12:00 Ordered 10 ml IV ASDIRECTED Magnesium Sulfate [Magnesium Sulfate 50%] Med 10/18/17 12:00 Ordered 2 gm IV ASDIRECTED Metoprolol Tartrate [Lopressor] Med 10/19/17 08:00 Ordered 50 mg PO DAILY Mexiletine [Mexitil] Med 10/18/17 14:00 Ordered 200 mg PO Q8HR Nitroglycerin [Nitrostat] Med 10/18/17 11:53 Ordered 0.4 mg SL ASDIRECTED PRN Oxybutynin [Oxybutynin ER] Med 10/18/17 20:00 Ordered 5 mg PO BEDTIME Potassium Chloride [Potassium Chloride] Med 10/19/17 08:00 Ordered 20 meq PO DAILY Rivaroxaban [Xarelto] Med 10/19/17 08:00 Ordered 15 mg PO DAILY Rivaroxaban [Xarelto] Med 10/18/17 18:00 Ordered 15 mg PO WITHDINNER Sodium Chloride 0.9% [Saline Flush] Med 10/18/17 11:51 Ordered 10 ml FLUSH ASDIRECTED PRN Sodium Chloride 0.9% [Saline Flush] Med 10/18/17 11:53 Ordered 10 ml FLUSH ASDIRECTED PRN Thiamine [Vitamin B-1] Med 10/18/17 12:00 Ordered 100 mg IV ASDIRECTED atorvaSTATin [Lipitor] Med 10/18/17 20:00 Ordered 40 mg PO QPM Peripheral IV Insertion Adult [OM.PC] Routine Oth 10/18/17 11:51 Ordered Resuscitation Status Routine Resus Stat 10/18/17 11:51 Ordered Medication Orders Amiodarone HCl (Cordarone) 200 mg PO DAILY [facility] Atorvastatin Calcium (Lipitor) 40 mg PO QPM [facility] Bisacodyl (Dulcolax) 10 mg RECTAL DAILY PRN PRN Reason: Constipation Clopidogrel Bisulfate (Plavix) 75 mg PO DAILY [facility] Docusate Sodium (Colace) 100 mg PO DAILY PRN PRN Reason: Constipation Escitalopram Oxalate (Lexapro) 10 mg PO DAILY [facility] Folic Acid (Folic Acid) 1 mg IV ASDIRECTED [facility] Furosemide (Lasix) 40 mg PO DAILY [facility] Lorazepam (Ativan) 0.5 mg PO Q6H PRN PRN Reason: Anxiety Magnesium Sulfate (Magnesium Sulfate 50%) 2 gm IV ASDIRECTED [facility] Metoprolol Tartrate (Lopressor) 50 mg PO DAILY [facility] Mexiletine HCl (Mexitil) 200 mg PO Q8HR [facility] Multivitamins/Minerals (Infuvite Adult) 10 ml IV ASDIRECTED [facility] Nitroglycerin (Nitrostat) 0.4 mg SL ASDIRECTED PRN PRN Reason: Chest Pain Non-Formulary Medication (Total Parenteral Nutrition, Central) 1,000 ml IV ASDIRECTED [facility]AC[facility]; Protocol Non-Formulary Medication (Lactated Ringers [Ringers, Lactated]) 1,000 ml IV ASDIRECTED [facility] Non-Formulary Medication (Potassium Chloride [Potassium Chloride]) 20 meq PO DAILY [facility] Oxybutynin Chloride (Oxybutynin Er) 5 mg PO BEDTIME [facility] Rivaroxaban (Xarelto) 15 mg PO DAILY [facility] Rivaroxaban (Xarelto) 15 mg PO WITHDINNER [facility] Sodium Chloride (Saline Flush) 10 ml FLUSH ASDIRECTED PRN PRN Reason: Keep Vein Open Sodium Chloride (Saline Flush) 10 ml FLUSH ASDIRECTED PRN PRN Reason: Keep Vein Open Thiamine HCl (Vitamin B-1) 100 mg IV ASDIRECTED [facility] Assessment/Plan Comment:: Patient to be placed back into inpatient care due to the severe muscle deconditioning and severe weight loss. We will place an NG tube for feeding and consider TPN next week if NG feeding and fluids fail. Weight daily. Family agree with current management plan and also consideration of care center and comfort cares discussed. Code status discussed and will discuss with son Isael and daughter.
[2017-10-18] MEDS: LORazepam 0.5 MG Tab PO PRN ×2 (17:15→20:00)
[2017-10-18] MEDS: Rivaroxaban 15 MG Tab PO SCH (17:15)
--- NOTE | 2017-10-18 17:21 | PCM.PN ---
- General Info Date of Service: 10/18/17 Subjective Update: Pt care was passed on to me at noon. Apparently nursing staff did place Nasogastric tube per patient request to start NG tube feeds, and he pulled it out, as it was very uncomfortable. Pt does not want NG tube he wants to try and eat in the morning. He is upset as he cannot get out of his bed, but patient has not walked for several days now, also he has not been eating well. So he has been started on IV fluids. he is getting banana bag presently. no fever or chills. - Review of Systems General: Reports: Weakness, Appetite (decreased). Denies: Fever, Chills HEENT: Denies: Visual Changes Pulmonary: Denies: Cough, Sputum Cardiovascular: Denies: Chest Pain, Lightheadedness Gastrointestinal: Denies: Abdominal Pain, Nausea, Vomiting Genitourinary: Denies: Frequency, Burning Musculoskeletal: Denies: Joint Pain, Joint Swelling Skin: Denies: Bruising, Pruritis, Rash Neurological: Reports: Confusion, Weakness. Denies: Headache, Numbness, Tingling - Patient Data Med Orders - Current: Current Medications Amiodarone HCl (Cordarone) 200 mg PO DAILY [facility] Atorvastatin Calcium (Lipitor) 40 mg PO QPM [facility] Bisacodyl (Dulcolax) 10 mg RECTAL DAILY PRN PRN Reason: Constipation Clopidogrel Bisulfate (Plavix) 75 mg PO DAILY [facility] Cyanocobalamin (Vitamin B12) 1,000 mcg IM DAILY [facility] Stop: 10/24/17 08:01 Docusate Sodium (Colace) 100 mg PO DAILY PRN PRN Reason: Constipation Escitalopram Oxalate (Lexapro) 10 mg PO DAILY [facility] Furosemide (Lasix) 40 mg PO DAILY [facility] Lorazepam (Ativan) 0.5 mg PO Q6H PRN PRN Reason: Anxiety Last Admin: 10/18/17 17:15 Dose: 0.5 mg Metoprolol Tartrate (Lopressor) 50 mg PO DAILY [facility] Mexiletine HCl (Mexitil) 200 mg PO Q8HR [facility] Last Admin: 10/18/17 17:13 Dose: Not Given Nitroglycerin (Nitrostat) 0.4 mg SL ASDIRECTED PRN PRN Reason: Chest Pain Gatorade 240 each GTUBE QID [facility] Oxybutynin Chloride (Oxybutynin Er) 5 mg PO BEDTIME [facility] Potassium Chloride (Klor-Con M20) 20 meq PO DAILY [facility] Rivaroxaban (Xarelto) 15 mg PO WITHDINNER [facility] Last Admin: 10/18/17 17:15 Dose: Not Given Sodium Chloride (Saline Flush) 10 ml FLUSH ASDIRECTED PRN PRN Reason: Keep Vein Open Discontinued Medications Sodium Chloride (Normal Saline) 1,000 mls @ 500 mls/hr IV ONETIME ONE Stop: 10/18/17 13:59 Sodium Chloride (Saline Flush) 10 ml FLUSH ASDIRECTED PRN PRN Reason: Keep Vein Open - Exam General: Alert, Oriented HEENT: Pupils Equal, Pupils Reactive, EOMI, Mucous Membr. Moist/[place] Neck: Supple Lungs: Clear to Auscultation, Normal Respiratory Effort Cardiovascular: Regular Rate, Regular Rhythm GI/Abdominal Exam: Normal Bowel Sounds, Soft, Non-Tender, No Organomegaly, No Distention, No Abnormal Bruit, No Mass, Pelvis Stable Extremities: Normal Inspection, Normal Range of Motion, Non-Tender, No Pedal Edema, Normal Capillary Refill Skin: Warm, Intact, Other (does have a sacral decubitus.) - Problem List & Annotations (1) Debility SNOMED Code(s): 84314446 Code(s): R53.81 - OTHER MALAISE Status: Acute Current Visit: Yes (2) Dementia SNOMED Code(s): 33049063 Code(s): F03.90 - UNSPECIFIED DEMENTIA WITHOUT BEHAVIORAL DISTURBANCE Status: Acute Current Visit: Yes (3) Severe muscle deconditioning SNOMED Code(s): 607567362 Code(s): R29.898 - OTH SYMPTOMS AND SIGNS INVOLVING THE MUSCULOSKELETAL SYSTEM Status: Acute Current Visit: Yes (4) Decreased appetite SNOMED Code(s): 74711204 Code(s): R63.0 - ANOREXIA Status: Chronic Priority: High Current Visit : No - Problem List Review Problem List Initiated/Reviewed/Updated: Yes - My Orders Last 24 Hours: My Active Orders 10/18/17 15:00 Nasogastric Orogastric Tube Insertion [OM.PC] Routine - Assessment Assessment:: Senile debility with poor appetite - Plan Plan:: Patient to be placed back into inpatient care due to the severe muscle deconditioning and severe weight loss. We will place an NG tube for feeding and consider TPN next week if NG feeding and fluids fail. Weight daily. Family agree with current management plan and also consideration of care center and comfort cares discussed. Code status discussed and will discuss with son Isael and daughter. 10/18/16 Per patient request Nasogastric tube was placed, but patient has pulled it out. Will continue IV hydration. Pt prefers to eat his food tomorrow. will see how he does tomorrow. Pt is significantly deconditioned. He has not been working with physical therapy has been bedridden for several days now.
[2017-10-18] MEDS ORDERED: FOLIC ACID IV SCH ×5 (18:30)
[2017-10-18] MEDS ORDERED: MAGNESIUM SULFATE IV SCH ×5 (18:30)
[2017-10-18] MEDS ORDERED: MVI IV SCH ×5 (18:30)
[2017-10-18] MEDS ORDERED: [UNRECOGNIZED DRUG - OTHER] IV SCH ×5 (18:30)
[2017-10-18] MEDS ORDERED: THIAMINE IV SCH ×5 (18:30)
[2017-10-18] MEDS: Cyanocobalamin (Vitamin B12) 1,000 MCG/ML SDV IM SCH (19:18)
[2017-10-18] MEDS: atorvaSTATin 40 MG Tab PO SCH (20:00)
[2017-10-18] MEDS: Oxybutynin 5 MG Tab.ER PO SCH (20:00)
[2017-10-19] MEDS ORDERED: Non-Formulary Medication 1 Each (Potassium Chloride [Potassium Chloride] 20 MEQ) PO SCH (08:00)
[2017-10-19] MEDS ORDERED: Rivaroxaban 15 MG Tab PO SCH (08:00)
[2017-10-19] MEDS ORDERED: Amiodarone 200 MG Tab PO SCH (08:00)
[2017-10-19] MEDS: Lactated Ringers 1,000 ML IV SCH ×2 (08:32→21:28)
--- NOTE | 2017-10-19 08:38 | PCM.PN ---
- General Info Date of Service: 10/19/17 Subjective Update: pt is more alert today. He does want to eat. he did eat his breakfast today. his iv line is out.New IV placed and presently on ringer lactate at 75cc/hr. No other changes. No fever or chills. Functional Status: Reports: Pain Controlled, Tolerating Diet, Urinating. Denies : Ambulating - Review of Systems General: Reports: Weakness. Denies: Fever, Chills HEENT: Denies: Headaches, Sinus Congestion, Rhinitis Pulmonary: Denies: Cough, Sputum Cardiovascular: Denies: Chest Pain, Lightheadedness Gastrointestinal: Denies: Abdominal Pain, Nausea, Vomiting Genitourinary: Denies: Frequency, Hematuria Musculoskeletal: Denies: Joint Pain, Joint Swelling Skin: Denies: Cyanosis, Jaundice, Mottled Neurological: Reports: Weakness. Denies: Dizziness, Numbness, Tingling, Tremors , Trouble Speaking - Patient Data Vitals - Most Recent: Last Vital Signs Temp 98.7 F 10/19/17 03:00 Pulse 65 10/19/17 03:00 Resp 18 10/19/17 03:00 BP 130/65 10/19/17 03:00 Pulse Ox 94 L 10/19/17 03:00 Weight - Most Recent: 72.484 kg Med Orders - Current: Current Medications Amiodarone HCl (Cordarone) 200 mg PO DAILY [facility] Atorvastatin Calcium (Lipitor) 40 mg PO QPM [facility] Last Admin: 10/18/17 20:00 Dose: 40 mg Bisacodyl (Dulcolax) 10 mg RECTAL DAILY PRN PRN Reason: Constipation Clopidogrel Bisulfate (Plavix) 75 mg PO DAILY [facility] Cyanocobalamin (Vitamin B12) 1,000 mcg IM DAILY [facility] Stop: 10/24/17 08:01 Last Admin: 10/18/17 19:18 Dose: Not Given Docusate Sodium (Colace) 100 mg PO DAILY PRN PRN Reason: Constipation Escitalopram Oxalate (Lexapro) 10 mg PO DAILY [facility] Furosemide (Lasix) 40 mg PO DAILY [facility] Thiamine HCl 200 mg/ Folic Acid 50 mg/ Magnesium Sulfate 1 gm/ Multivitamins/ Minerals 10 ml/ Lactated Ringer's 1,024 mls @ 100 mls/hr IV ASDIRECTED [facility] Lorazepam (Ativan) 0.5 mg PO Q6H PRN PRN Reason: Anxiety Last Admin: 10/18/17 20:00 Dose: 0.5 mg Metoprolol Tartrate (Lopressor) 50 mg PO DAILY [facility] Mexiletine HCl (Mexitil) 200 mg PO Q8HR [facility] Last Admin: 10/19/17 06:40 Dose: Not Given Nitroglycerin (Nitrostat) 0.4 mg SL ASDIRECTED PRN PRN Reason: Chest Pain Gatorade 240 each GTUBE QID [facility] Oxybutynin Chloride (Oxybutynin Er) 5 mg PO BEDTIME [facility] Last Admin: 10/18/17 20:00 Dose: 5 mg Potassium Chloride (Klor-Con M20) 20 meq PO DAILY [facility] Rivaroxaban (Xarelto) 15 mg PO WITHDINNER [facility] Last Admin: 10/18/17 17:15 Dose: Not Given Sodium Chloride (Saline Flush) 10 ml FLUSH ASDIRECTED PRN PRN Reason: Keep Vein Open Discontinued Medications Sodium Chloride (Normal Saline) 1,000 mls @ 500 mls/hr IV ONETIME ONE Stop: 10/18/17 13:59 Last Admin: 10/18/17 12:00 Dose: 500 mls/hr Sodium Chloride (Saline Flush) 10 ml FLUSH ASDIRECTED PRN PRN Reason: Keep Vein Open - Exam General: Alert, Oriented HEENT: Pupils Equal, Pupils Reactive, EOMI, Mucous Membr. Moist/[place] Neck: Supple Lungs: Clear to Auscultation, Normal Respiratory Effort Cardiovascular: Regular Rate, Regular Rhythm GI/Abdominal Exam: Normal Bowel Sounds, Soft, Non-Tender, No Organomegaly, No Distention, No Abnormal Bruit, No Mass, Pelvis Stable Extremities: Normal Inspection, Normal Range of Motion, Non-Tender, No Pedal Edema, Normal Capillary Refill Peripheral Pulses: 2+: Carotid (L), Carotid (R), Radial (L), Radial (R) Skin: Warm, Intact, Other (sacral decubitus) - Problem List & Annotations (1) Debility SNOMED Code(s): 79804292 Code(s): R53.81 - OTHER MALAISE Status: Acute Current Visit: Yes (2) Severe muscle deconditioning SNOMED Code(s): 240894888 Code(s): R29.898 - OTH SYMPTOMS AND SIGNS INVOLVING THE MUSCULOSKELETAL SYSTEM Status: Acute Current Visit: Yes (3) Decreased appetite SNOMED Code(s): 20470458 Code(s): R63.0 - ANOREXIA Status: Chronic Priority: High Current Visit : No - Problem List Review Problem List Initiated/Reviewed/Updated: Yes - My Orders Last 24 Hours: My Active Orders 10/18/17 15:00 Nasogastric Orogastric Tube Insertion [OM.PC] Routine - Assessment Assessment:: Senile debility Decreased appetite - Plan Plan:: Patient to be placed back into inpatient care due to the severe muscle deconditioning and severe weight loss. We will place an NG tube for feeding and consider TPN next week if NG feeding and fluids fail. Weight daily. Family agree with current management plan and also consideration of care center and comfort cares discussed. Code status discussed and will discuss with son Isael and daughter. 10/19/17 Pt did eat his break fast today. also he has eaten some of his lunch. Will encourage oral diet and Slow IV hydration. Pt is doing better today. I will have talk with pt and his spouse tomorrow about further care of patient. He has not been progressing well with physical therapy. If he continues to eat better, might not need to be under acute care by Sunday.
[2017-10-19] MEDS: Escitalopram 20 MG Tab PO SCH (08:39)
[2017-10-19] MEDS: Potassium Chloride 20 MEQ Tab.ER PO SCH (08:39)
[2017-10-19] MEDS: Clopidogrel 75 MG Tab PO SCH (08:40)
[2017-10-19] MEDS: Metoprolol Tartrate 50 MG Tab PO SCH (08:43)
[2017-10-19] MEDS: Furosemide 40 MG Tab PO SCH (08:43)
[2017-10-19] MEDS: Amiodarone 200 MG Tab PO SCH (10:56)
[2017-10-19] MEDS: [UNRECOGNIZED DRUG - OTHER] GTUBE SCH ×4 (11:14→21:52)
[2017-10-19] MEDS: Cyanocobalamin (Vitamin B12) 1,000 MCG/ML SDV IM SCH (12:09)
[2017-10-19] MEDS: Rivaroxaban 15 MG Tab PO SCH (18:15)
[2017-10-19] MEDS: Oxybutynin 5 MG Tab.ER PO SCH (20:01)
[2017-10-19] MEDS: LORazepam 0.5 MG Tab PO PRN (20:01)
[2017-10-19] MEDS: atorvaSTATin 40 MG Tab PO SCH (20:01)
[2017-10-20] MEDS: LORazepam 0.5 MG Tab PO PRN ×3 (01:31→20:34)
[2017-10-20] MEDS: Potassium Chloride 20 MEQ Tab.ER PO SCH (07:52)
[2017-10-20] MEDS: Furosemide 40 MG Tab PO SCH (07:53)
[2017-10-20] MEDS: Metoprolol Tartrate 50 MG Tab PO SCH (07:54)
[2017-10-20] MEDS: Escitalopram 20 MG Tab PO SCH (07:54)
[2017-10-20] MEDS: Cyanocobalamin (Vitamin B12) 1,000 MCG/ML SDV IM SCH (07:55)
[2017-10-20] MEDS: Clopidogrel 75 MG Tab PO SCH (07:55)
--- NOTE | 2017-10-20 09:29 | PCM.PN ---
- General Info Date of Service: 10/20/17 Subjective Update: Pt is alert and awake. he is eating his breakfast. According to nursing staff he did eat his whole breakfast, half of his lunch and part of his supper yesterday. Also today he did finish the breakfast completely when I was in the room. He claims he feels much better than the past few days. No fever or chills. Functional Status: Reports: Pain Controlled, Tolerating Diet, Urinating - Review of Systems General: Reports: Weakness. Denies: Fever, Fatigue, Malaise, Chills HEENT: Denies: Sinus Congestion, Rhinitis Pulmonary: Denies: Cough, Sputum Cardiovascular: Denies: Chest Pain, Lightheadedness Gastrointestinal: Denies: Nausea, Vomiting Genitourinary: Denies: Dysuria, Frequency, Burning Musculoskeletal: Denies: Joint Pain, Joint Swelling Skin: Denies: Pruritis, Rash - Patient Data Vitals - Most Recent: Last Vital Signs Temp 99 F 10/20/17 08:00 Pulse 65 10/20/17 08:00 Resp 20 10/20/17 08:00 BP 125/67 10/20/17 08:00 Pulse Ox 95 10/20/17 08:00 Weight - Most Recent: 72.484 kg I&O - Last 24 Hours: Intake & Output 10/19/17 10/20/17 10/20/17 22:59 06:59 14:59 Intake Total 737 973 Balance 737 973 Med Orders - Current: Current Medications Amiodarone HCl (Cordarone) 200 mg PO DAILY@1000 [facility] Last Admin: 10/19/17 10:56 Dose: Not Given Atorvastatin Calcium (Lipitor) 40 mg PO QPM [facility] Last Admin: 10/19/17 20:01 Dose: 40 mg Bisacodyl (Dulcolax) 10 mg RECTAL DAILY PRN PRN Reason: Constipation Clopidogrel Bisulfate (Plavix) 75 mg PO DAILY [facility] Last Admin: 10/20/17 07:55 Dose: 75 mg Cyanocobalamin (Vitamin B12) 1,000 mcg IM DAILY [facility] Stop: 10/24/17 08:01 Last Admin: 10/20/17 07:55 Dose: 1,000 mcg Docusate Sodium (Colace) 100 mg PO DAILY PRN PRN Reason: Constipation Escitalopram Oxalate (Lexapro) 10 mg PO DAILY [facility] Last Admin: 10/20/17 07:54 Dose: 10 mg Furosemide (Lasix) 40 mg PO DAILY [facility] Last Admin: 10/20/17 07:53 Dose: Not Given Thiamine HCl 200 mg/ Folic Acid 50 mg/ Magnesium Sulfate 1 gm/ Multivitamins/ Minerals 10 ml/ Lactated Ringer's 1,024 mls @ 100 mls/hr IV ASDIRECTED JACQUELYN Lactated Ringer's (Ringers, Lactated) 1,000 mls @ 75 mls/hr IV ASDIRECTED [facility] Last Admin: 10/19/17 21:28 Dose: 75 mls/hr Lorazepam (Ativan) 0.5 mg PO Q6H PRN PRN Reason: Anxiety Last Admin: 10/20/17 01:31 Dose: 0.5 mg Metoprolol Tartrate (Lopressor) 50 mg PO DAILY [facility] Last Admin: 10/20/17 07:54 Dose: 50 mg Mexiletine HCl (Mexitil) 200 mg PO Q8HR [facility] Last Admin: 10/20/17 06:27 Dose: 200 mg Nitroglycerin (Nitrostat) 0.4 mg SL ASDIRECTED PRN PRN Reason: Chest Pain Gatorade 240 each GTUBE QID [facility] Last Admin: 10/19/17 21:52 Dose: Not Given Oxybutynin Chloride (Oxybutynin Er) 5 mg PO BEDTIME [facility] Last Admin: 10/19/17 20:01 Dose: 5 mg Potassium Chloride (Klor-Con M20) 20 meq PO DAILY [facility] Last Admin: 10/20/17 07:52 Dose: 20 meq Rivaroxaban (Xarelto) 15 mg PO WITHDINNER [facility] Last Admin: 10/19/17 18:15 Dose: 15 mg Sodium Chloride (Saline Flush) 10 ml FLUSH ASDIRECTED PRN PRN Reason: Keep Vein Open Last Admin: 10/19/17 07:55 Dose: 10 ml Discontinued Medications Amiodarone HCl (Cordarone) 200 mg PO DAILY [facility] Last Admin: 10/19/17 08:38 Dose: 200 mg Sodium Chloride (Normal Saline) 1,000 mls @ 500 mls/hr IV ONETIME ONE Stop: 10/18/17 13:59 Last Admin: 10/18/17 12:00 Dose: 500 mls/hr Sodium Chloride (Saline Flush) 10 ml FLUSH ASDIRECTED PRN PRN Reason: Keep Vein Open - Exam General: Alert, Oriented HEENT: Pupils Equal, Pupils Reactive, EOMI, Mucous Membr. Moist/[place] Neck: Supple Lungs: Clear to Auscultation, Normal Respiratory Effort Cardiovascular: Regular Rate, Regular Rhythm GI/Abdominal Exam: Normal Bowel Sounds, Soft, Non-Tender, No Organomegaly, No Distention, No Abnormal Bruit, No Mass, Pelvis Stable Extremities: Normal Inspection, Normal Range of Motion, Non-Tender, No Pedal Edema, Normal Capillary Refill Peripheral Pulses: 2+: Carotid (L), Carotid (R), Brachial (L), Brachial (R) Skin: Warm, Intact Wound/Incisions: Decubitis (sacral ulcer) - Problem List & Annotations (1) Debility SNOMED Code(s): 87169166 Code(s): R53.81 - OTHER MALAISE Status: Acute Current Visit: Yes (2) Severe muscle deconditioning SNOMED Code(s): 332609661 Code(s): R29.898 - OTH SYMPTOMS AND SIGNS INVOLVING THE MUSCULOSKELETAL SYSTEM Status: Acute Current Visit: Yes (3) Decreased appetite SNOMED Code(s): 24075841 Code(s): R63.0 - ANOREXIA Status: Chronic Priority: High Current Visit : No - Problem List Review Problem List Initiated/Reviewed/Updated: Yes - My Orders Last 24 Hours: My Active Orders 10/19/17 09:00 Lactated Ringers [Ringers, Lactated] 1,000 ml IV ASDIRECTED - Assessment Assessment:: Senile debility Decreased appetite - Plan Plan:: Patient to be placed back into inpatient care due to the severe muscle deconditioning and severe weight loss. We will place an NG tube for feeding and consider TPN next week if NG feeding and fluids fail. Weight daily. Family agree with current management plan and also consideration of care center and comfort cares discussed. Code status discussed and will discuss with son Isael and daughter. 10/19/17 Pt did eat his break fast today. also he has eaten some of his lunch. Will encourage oral diet and Slow IV hydration. Pt is doing better today. I will have talk with pt and his spouse tomorrow about further care of patient. He has not been progressing well with physical therapy. If he continues to eat better, might not need to be under acute care by Sunday. 10/20/17 Pt is doing better, he has started to eat better and seems to have better appetite now. will continue oral diet for now. Will continue IV fluids until is hydration improves and he has good urine output. Will get CBC and CMP done tomorrow and followup.
[2017-10-20] MEDS: Lactated Ringers 1,000 ML IV SCH ×2 (10:35→23:38)
[2017-10-20] MEDS: Amiodarone 200 MG Tab PO SCH (10:53)
[2017-10-20] MEDS: Rivaroxaban 15 MG Tab PO SCH (17:22)
[2017-10-20] MEDS: atorvaSTATin 40 MG Tab PO SCH (19:39)
[2017-10-20] MEDS: Oxybutynin 5 MG Tab.ER PO SCH (19:39)
[2017-10-21] MEDS: LORazepam 0.5 MG Tab PO PRN ×2 (01:51→20:34)
[2017-10-21] MEDS: Potassium Chloride 20 MEQ Tab.ER PO SCH (07:39)
[2017-10-21] MEDS: Furosemide 40 MG Tab PO SCH (07:40)
[2017-10-21] MEDS: Escitalopram 20 MG Tab PO SCH (07:40)
[2017-10-21] MEDS: Metoprolol Tartrate 50 MG Tab PO SCH (07:42)
[2017-10-21] MEDS: Clopidogrel 75 MG Tab PO SCH (07:42)
[2017-10-21] MEDS: Cyanocobalamin (Vitamin B12) 1,000 MCG/ML SDV IM SCH (07:43)
--- NOTE | 2017-10-21 11:42 | PCM.PN ---
- General Info Date of Service: 10/21/17 Subjective Update: Pt is awake. He claims he feels good. Apparently he has not had a good breakfast today according to staff. He only ate few bites. Still on Iv LR at 75cc/hr. No fever or chills. Pt claims he is not depressed and he will try to eat his lunch. No issues of pain or discomfort. Has not been out of bed for about a week now. He has developed stage 2 decubitus over right heel and sacrum . Functional Status: Reports: Tolerating Diet (but eating less today), Urinating - Review of Systems General: Reports: Appetite (poor). Denies: Fever, Fatigue HEENT: Denies: Sinus Congestion, Rhinitis Cardiovascular: Denies: Chest Pain, Orthopnea, Lightheadedness Gastrointestinal: Denies: Abdominal Pain, Nausea, Vomiting Genitourinary: Denies: Dysuria, Frequency Musculoskeletal: Denies: Joint Pain, Joint Swelling Skin: Denies: Bruising, Pruritis, Rash Neurological: Denies: Headache, Numbness, Tingling Psychiatric: Reports: Confusion. Denies: Hallucinations, Suicidal Ideation - Patient Data Vitals - Most Recent: Last Vital Signs Temp 100 F 10/21/17 07:54 Pulse 101 H 10/21/17 07:54 Resp 20 10/21/17 07:54 BP 131/86 10/21/17 07:54 Pulse Ox 95 10/21/17 07:54 Weight - Most Recent: 74.162 kg I&O - Last 24 Hours: Intake & Output 10/20/17 10/21/17 10/21/17 22:59 06:59 14:59 Intake Total 1476 1200 Balance 1476 1200 Lab Results Last 24 Hours: Laboratory Results - last 24 hr 10/21/17 10/21/17 Range/Units 09:30 09:30 WBC 9.2 (4.0-11.0) K/uL RBC 3.75 L (4.50-6.50) M/uL Hgb 10.0 L (13.0-18.0) g/dL Hct 31.6 L (40.0-54.0) % MCV 84 (76-96) fL MCH 26.7 L (27.0-32.0) pg MCHC 31.6 (31.0-35.0) g/dL RDW 17.4 H (11.0-16.0) % Plt Count 403 H (150-400) K/uL MPV 9.6 (6.0-10.0) fL Neut % (Auto) 73.3 H (45.0-70.0) % Lymph % (Auto) 14.3 L (20.0-40.0) % Sharp % (Auto) 10.5 H (3.0-10.0) % Eos % (Auto) 1.7 (1.0-5.0) % Baso % (Auto) 0.2 (0.0-0.5) % Neut # (Auto) 6.73 (2.00-7.50) K/uL Lymph # (Auto) 1.32 L (1.50-4.00) K/uL Sharp # (Auto) 0.97 H (0.20-0.80) K/uL Eos # (Auto) 0.16 (0.04-0.40) K/uL Baso # (Auto) 0.02 (0.02-0.10) K/uL Sodium 146 H (136-145) mmol/L Potassium 4.0 (3.5-5.1) mmol/L Chloride 111 H (98-107) mmol/L Carbon Dioxide 26.8 (21.0-32.0) mmol/L Anion Gap 12.2 (5.0-15.0) mmol/L BUN 20 D (8-26) mg/dL Creatinine 1.30 (0.70-1.30) mg/dL Est Cr Clr Drug Dosing 42.79 mL/min Estimated GFR (MDRD) 52 L (>60) MLS/MIN BUN/Creatinine Ratio 15.4 (6-25) Glucose 102 H (74-100) mg/dL Calcium 8.4 L (8.5-10.1) mg/dL Total Bilirubin 1.0 (0.0-1.0) mg/dL AST 81 H (15-37) U/L ALT 87 H (12-78) U/L Alkaline Phosphatase 92 (46-116) U/L Total Protein 6.0 L (6.4-8.2) g/dL Albumin 2.1 L (3.4-5.0) g/dL Globulin 3.9 (2.2-4.2) g/dL Albumin/Globulin Ratio 0.5 L (0.8-2.0) Med Orders - Current: Current Medications Amiodarone HCl (Cordarone) 200 mg PO DAILY@1000 [facility] Last Admin: 10/20/17 10:53 Dose: 200 mg Atorvastatin Calcium (Lipitor) 40 mg PO QPM [facility] Last Admin: 10/20/17 19:39 Dose: 40 mg Bisacodyl (Dulcolax) 10 mg RECTAL DAILY PRN PRN Reason: Constipation Clopidogrel Bisulfate (Plavix) 75 mg PO DAILY [facility] Last Admin: 10/21/17 07:42 Dose: 75 mg Cyanocobalamin (Vitamin B12) 1,000 mcg IM DAILY [facility] Stop: 10/24/17 08:01 Last Admin: 10/21/17 07:43 Dose: 1,000 mcg Docusate Sodium (Colace) 100 mg PO DAILY PRN PRN Reason: Constipation Escitalopram Oxalate (Lexapro) 10 mg PO DAILY [facility] Last Admin: 10/21/17 07:40 Dose: 10 mg Furosemide (Lasix) 40 mg PO DAILY [facility] Last Admin: 10/21/17 07:40 Dose: 40 mg Thiamine HCl 200 mg/ Folic Acid 50 mg/ Magnesium Sulfate 1 gm/ Multivitamins/ Minerals 10 ml/ Lactated Ringer's 1,024 mls @ 100 mls/hr IV ASDIRECTED [facility] Lactated Ringer's (Ringers, Lactated) 1,000 mls @ 75 mls/hr IV ASDIRECTED [facility] Last Admin: 10/20/17 23:38 Dose: 75 mls/hr Lorazepam (Ativan) 0.5 mg PO Q6H PRN PRN Reason: Anxiety Last Admin: 10/21/17 01:51 Dose: 0.5 mg Megestrol Acetate (Megace 40 Mg/Ml Susp) 400 mg PO BID [facility] Metoprolol Tartrate (Lopressor) 50 mg PO DAILY [facility] Last Admin: 10/21/17 07:42 Dose: 50 mg Mexiletine HCl (Mexitil) 200 mg PO Q8HR [facility] Last Admin: 10/21/17 07:00 Dose: 200 mg Nitroglycerin (Nitrostat) 0.4 mg SL ASDIRECTED PRN PRN Reason: Chest Pain Gatorade 240 each GTUBE QID [facility] Last Admin: 10/19/17 21:52 Dose: Not Given Oxybutynin Chloride (Oxybutynin Er) 5 mg PO BEDTIME [facility] Last Admin: 10/20/17 19:39 Dose: 5 mg Potassium Chloride (Klor-Con M20) 20 meq PO DAILY [facility] Last Admin: 10/21/17 07:39 Dose: 20 meq Rivaroxaban (Xarelto) 15 mg PO WITHDINNER [facility] Last Admin: 10/20/17 17:22 Dose: 15 mg Sodium Chloride (Saline Flush) 10 ml FLUSH ASDIRECTED PRN PRN Reason: Keep Vein Open Last Admin: 10/19/17 07:55 Dose: 10 ml Discontinued Medications Amiodarone HCl (Cordarone) 200 mg PO DAILY [facility] Last Admin: 10/19/17 08:38 Dose: 200 mg Sodium Chloride (Normal Saline) 1,000 mls @ 500 mls/hr IV ONETIME ONE Stop: 10/18/17 13:59 Last Admin: 10/18/17 12:00 Dose: 500 mls/hr Sodium Chloride (Saline Flush) 10 ml FLUSH ASDIRECTED PRN PRN Reason: Keep Vein Open - Exam General: Alert, Oriented HEENT: Pupils Equal, Pupils Reactive, EOMI, Mucous Membr. Moist/[place] Neck: Supple Lungs: Clear to Auscultation, Normal Respiratory Effort Cardiovascular: Regular Rate, Regular Rhythm GI/Abdominal Exam: Normal Bowel Sounds, Soft, Non-Tender, No Organomegaly, No Distention, No Abnormal Bruit, No Mass, Pelvis Stable Extremities: Normal Inspection, Normal Range of Motion, Non-Tender, No Pedal Edema, Normal Capillary Refill Skin: Warm, Intact, Other (Pt has stage 2 decubitus ulcer over the lower sacrum and also now has develoeped one over right heel. Both have mepliex dressing on it, appears to be healing slowly.) Neurological: No New Focal Deficit - Problem List & Annotations (1) Debility SNOMED Code(s): 68751811 Code(s): R53.81 - OTHER MALAISE Status: Acute Current Visit: Yes (2) Severe muscle deconditioning SNOMED Code(s): 120778221 Code(s): R29.898 - OTH SYMPTOMS AND SIGNS INVOLVING THE MUSCULOSKELETAL SYSTEM Status: Acute Current Visit: Yes (3) Decreased appetite SNOMED Code(s): 96670942 Code(s): R63.0 - ANOREXIA Status: Chronic Priority: High Current Visit : No - Problem List Review Problem List Initiated/Reviewed/Updated: Yes - My Orders Last 24 Hours: My Active Orders 10/21/17 11:45 Megestrol [Megace 40 MG/ML Susp] 400 mg PO BID - Assessment Assessment:: Senile debility Decreased appetite Failure to thrive - Plan Plan:: Patient to be placed back into inpatient care due to the severe muscle deconditioning and severe weight loss. We will place an NG tube for feeding and consider TPN next week if NG feeding and fluids fail. Weight daily. Family agree with current management plan and also consideration of care center and comfort cares discussed. Code status discussed and will discuss with son Isael and daughter. 10/19/17 Pt did eat his break fast today. also he has eaten some of his lunch. Will encourage oral diet and Slow IV hydration. Pt is doing better today. I will have talk with pt and his spouse tomorrow about further care of patient. He has not been progressing well with physical therapy. If he continues to eat better, might not need to be under acute care by Sunday. 10/20/17 Pt is doing better, he has started to eat better and seems to have better appetite now. will continue oral diet for now. Will continue IV fluids until is hydration improves and he has good urine output. Will get CBC and CMP done tomorrow and followup. 10/21/16 Apparently pt has had half his meals yesterday, but today has not eaten much fro his breakfast. His lbs done today shows very stable CBC and CMP other than his albumin at 2.1 which is low. Pt has not been on megace since he has been on acute care, hence I have restarted his Megace at 400mg BID before meals. I did school guidance counselor patient on depression today, he claims he is not depressed. He is on lexapro. Will have PT eval for wound care. Will see if megace does any improvement with his appetite.
[2017-10-21] MEDS: Megestrol Susp 40 MG/ML ML (240 ML Bottle) PO SCH ×2 (11:47→21:02)
[2017-10-21] MEDS: Amiodarone 200 MG Tab PO SCH (11:49)
[2017-10-21] MEDS: Lactated Ringers 1,000 ML IV SCH (13:04)
[2017-10-21] MEDS: Rivaroxaban 15 MG Tab PO SCH (17:45)
[2017-10-21] MEDS ORDERED: Acetaminophen 325 MG Tab PO PRN ×2 (20:15→21:04)
[2017-10-21] MEDS: Oxybutynin 5 MG Tab.ER PO SCH (20:34)
[2017-10-21] MEDS: atorvaSTATin 40 MG Tab PO SCH (20:34)
[2017-10-22] MEDS: Lactated Ringers 1,000 ML IV SCH (02:14)
[2017-10-22] MEDS: Furosemide 40 MG Tab PO SCH (07:38)
[2017-10-22] MEDS: Clopidogrel 75 MG Tab PO SCH (07:38)
[2017-10-22] MEDS: Megestrol Susp 40 MG/ML ML (240 ML Bottle) PO SCH ×2 (07:38→17:00)
[2017-10-22] MEDS: Escitalopram 20 MG Tab PO SCH (07:39)
[2017-10-22] MEDS: Cyanocobalamin (Vitamin B12) 1,000 MCG/ML SDV IM SCH (07:39)
[2017-10-22] MEDS: Metoprolol Tartrate 50 MG Tab PO SCH (07:39)
[2017-10-22] MEDS: Potassium Chloride 20 MEQ Tab.ER PO SCH (07:39)
[2017-10-22] MEDS: Amiodarone 200 MG Tab PO SCH (11:33)
--- NOTE | 2017-10-22 13:13 | PCM.PN ---
- General Info Date of Service: 10/22/17 Subjective Update: Pt apparently has not eaten breakfast today. He does go in and out of periods of confusions. he is alert and oriented now. He does agree to eat breakfast, and does not want NG feeds. No complaints form patient.He has been hydrated by Iv at rate of 75cc/hr of ringer lactate. It has been ore than a week since patient has ambulated and even bear weight. Functional Status: Reports: Tolerating Diet, Urinating - Review of Systems General: Reports: Weakness. Denies: Fever, Malaise, Chills HEENT: Denies: Sinus Congestion, Sore Throat, Visual Changes Pulmonary: Denies: Cough, Sputum Cardiovascular: Denies: Chest Pain, Lightheadedness Gastrointestinal: Denies: Nausea, Vomiting Genitourinary: Denies: Dysuria, Burning Musculoskeletal: Denies: Joint Pain, Joint Swelling Skin: Denies: Cyanosis, Jaundice, Pruritis, Rash Neurological: Reports: Weakness. Denies: Dizziness, Headache, Numbness, Tingling Psychiatric: Reports: Confusion. Denies: Depression, Suicidal Ideation - Patient Data Vitals - Most Recent: Last Vital Signs Temp 97.6 F 10/22/17 07:20 Pulse 66 10/22/17 07:39 Resp 16 10/22/17 07:20 BP 92/63 10/22/17 07:39 Pulse Ox 93 L 10/22/17 07:20 Weight - Most Recent: 74.162 kg I&O - Last 24 Hours: Intake & Output 10/21/17 10/22/17 10/22/17 22:59 06:59 14:59 Intake Total 1102 1039 Output Total 400 Balance 702 1039 Med Orders - Current: Current Medications Acetaminophen (Tylenol) 325 - 650 mg PO Q4H PRN PRN Reason: Pain Amiodarone HCl (Cordarone) 200 mg PO DAILY@1000 [facility] Last Admin: 10/22/17 11:33 Dose: 200 mg Atorvastatin Calcium (Lipitor) 40 mg PO QPM [facility] Last Admin: 10/21/17 20:34 Dose: 40 mg Bisacodyl (Dulcolax) 10 mg RECTAL DAILY PRN PRN Reason: Constipation Clopidogrel Bisulfate (Plavix) 75 mg PO DAILY [facility] Last Admin: 10/22/17 07:38 Dose: 75 mg Cyanocobalamin (Vitamin B12) 1,000 mcg IM DAILY [facility] Stop: 10/24/17 08:01 Last Admin: 10/22/17 07:39 Dose: 1,000 mcg Docusate Sodium (Colace) 100 mg PO DAILY PRN PRN Reason: Constipation Escitalopram Oxalate (Lexapro) 10 mg PO DAILY [facility] Last Admin: 10/22/17 07:39 Dose: 10 mg Furosemide (Lasix) 40 mg PO DAILY [facility] Last Admin: 10/22/17 07:38 Dose: 40 mg Thiamine HCl 200 mg/ Folic Acid 50 mg/ Magnesium Sulfate 1 gm/ Multivitamins/ Minerals 10 ml/ Lactated Ringer's 1,024 mls @ 100 mls/hr IV ASDIRECTED [facility] Lactated Ringer's (Ringers, Lactated) 1,000 mls @ 75 mls/hr IV ASDIRECTED [facility] Last Admin: 10/22/17 02:14 Dose: 75 mls/hr Lorazepam (Ativan) 0.5 mg PO Q6H PRN PRN Reason: Anxiety Last Admin: 10/21/17 20:34 Dose: 0.5 mg Megestrol Acetate (Megace 40 Mg/Ml Susp) 400 mg PO 0730,1630 [facility] Last Admin: 10/22/17 07:38 Dose: 400 mg Metoprolol Tartrate (Lopressor) 50 mg PO DAILY [facility] Last Admin: 10/22/17 07:39 Dose: 50 mg Mexiletine HCl (Mexitil) 200 mg PO Q8HR [facility] Last Admin: 10/22/17 06:13 Dose: 200 mg Nitroglycerin (Nitrostat) 0.4 mg SL ASDIRECTED PRN PRN Reason: Chest Pain Gatorade 240 each GTUBE QID [facility] Last Admin: 10/19/17 21:52 Dose: Not Given Oxybutynin Chloride (Oxybutynin Er) 5 mg PO BEDTIME [facility] Last Admin: 10/21/17 20:34 Dose: 5 mg Potassium Chloride (Klor-Con M20) 20 meq PO DAILY [facility] Last Admin: 10/22/17 07:39 Dose: 20 meq Rivaroxaban (Xarelto) 15 mg PO WITHDINNER [facility] Last Admin: 10/21/17 17:45 Dose: 15 mg Sodium Chloride (Saline Flush) 10 ml FLUSH ASDIRECTED PRN PRN Reason: Keep Vein Open Last Admin: 10/19/17 07:55 Dose: 10 ml Discontinued Medications Acetaminophen (Tylenol) 325 mg PO Q4H PRN PRN Reason: Pain Last Admin: 10/21/17 20:32 Dose: 650 mg Amiodarone HCl (Cordarone) 200 mg PO DAILY [facility] Last Admin: 10/19/17 08:38 Dose: 200 mg Sodium Chloride (Normal Saline) 1,000 mls @ 500 mls/hr IV ONETIME ONE Stop: 10/18/17 13:59 Last Admin: 10/18/17 12:00 Dose: 500 mls/hr Megestrol Acetate (Megace 40 Mg/Ml Susp) 400 mg PO BID [facility] Last Admin: 10/21/17 21:02 Dose: Not Given Sodium Chloride (Saline Flush) 10 ml FLUSH ASDIRECTED PRN PRN Reason: Keep Vein Open - Exam General: Alert, Oriented HEENT: Pupils Equal, Pupils Reactive, EOMI, Mucous Membr. Moist/[place] Neck: Supple Lungs: Clear to Auscultation, Normal Respiratory Effort Cardiovascular: Regular Rate, Regular Rhythm GI/Abdominal Exam: Normal Bowel Sounds, Soft, Non-Tender, No Organomegaly, No Distention, No Abnormal Bruit, No Mass, Pelvis Stable Skin: Warm, Intact (HAs sacral decubitus and also left heel decubitus, both are stage 2 with mepilex dressings.) - Problem List & Annotations (1) Debility SNOMED Code(s): 72575580 Code(s): R53.81 - OTHER MALAISE Status: Acute Current Visit: Yes (2) Severe muscle deconditioning SNOMED Code(s): 392660481 Code(s): R29.898 - OTH SYMPTOMS AND SIGNS INVOLVING THE MUSCULOSKELETAL SYSTEM Status: Acute Current Visit: Yes (3) Decreased appetite SNOMED Code(s): 06048217 Code(s): R63.0 - ANOREXIA Status: Chronic Priority: High Current Visit : No - Problem List Review Problem List Initiated/Reviewed/Updated: Yes - My Orders Last 24 Hours: My Active Orders 10/21/17 21:04 Acetaminophen [Tylenol] 325 - 650 mg PO Q4H PRN 10/22/17 07:30 Megestrol [Megace 40 MG/ML Susp] 400 mg PO 0730,1630 - Assessment Assessment:: Senile debility Decreased appetite Failure to thrive - Plan Plan:: Patient to be placed back into inpatient care due to the severe muscle deconditioning and severe weight loss. We will place an NG tube for feeding and consider TPN next week if NG feeding and fluids fail. Weight daily. Family agree with current management plan and also consideration of care center and comfort cares discussed. Code status discussed and will discuss with son Isael and daughter. 10/19/17 Pt did eat his break fast today. also he has eaten some of his lunch. Will encourage oral diet and Slow IV hydration. Pt is doing better today. I will have talk with pt and his spouse tomorrow about further care of patient. He has not been progressing well with physical therapy. If he continues to eat better, might not need to be under acute care by Sunday. 10/20/17 Pt is doing better, he has started to eat better and seems to have better appetite now. will continue oral diet for now. Will continue IV fluids until is hydration improves and he has good urine output. Will get CBC and CMP done tomorrow and followup. 10/21/16 Apparently pt has had half his meals yesterday, but today has not eaten much fro his breakfast. His lbs done today shows very stable CBC and CMP other than his albumin at 2.1 which is low. Pt has not been on megace since he has been on acute care, hence I have restarted his Megace at 400mg BID before meals. I did executive assistant to general counsel patient on depression today, he claims he is not depressed. He is on lexapro. Will have PT eval for wound care. Will see if megace does any improvement with his appetite. 10/22/17 Pt is alert. he claims he does not want to have NG feeds, will try eating. But he has refused to eat his breakfast today. His recent lab works are normal other then hypoproteinemia He has been on megace for appetite stimulant for past 2 days now. family needs to make decision on what they really want us to do. Also he has not walked for more then a week and has refused physical therapy. I do want PT to see patient for decubitus wound management. I do not know or think IV parental nutrition is good choice considering patient's general health. IF family want to plan on skilled nursing issue with feeding, G-tube will be option, which might help with pt improvement or might just prolong patient suffering. Might need social service input of further care for patient.
[2017-10-22] MEDS: Rivaroxaban 15 MG Tab PO SCH (17:28)
[2017-10-22] MEDS: atorvaSTATin 40 MG Tab PO SCH (20:05)
[2017-10-22] MEDS: Oxybutynin 5 MG Tab.ER PO SCH (20:05)
[2017-10-23] MEDS: Lactated Ringers 1,000 ML IV SCH ×2 (05:00→17:12)
[2017-10-23] MEDS: Cyanocobalamin (Vitamin B12) 1,000 MCG/ML SDV IM SCH (07:52)
[2017-10-23] MEDS: Potassium Chloride 20 MEQ Tab.ER PO SCH (07:52)
[2017-10-23] MEDS: Clopidogrel 75 MG Tab PO SCH (07:52)
[2017-10-23] MEDS: Metoprolol Tartrate 50 MG Tab PO SCH (07:53)
[2017-10-23] MEDS: Escitalopram 20 MG Tab PO SCH (07:53)
[2017-10-23] MEDS: Furosemide 40 MG Tab PO SCH (07:53)
[2017-10-23] MEDS: Megestrol Susp 40 MG/ML ML (240 ML Bottle) PO SCH ×2 (08:00→17:15)
[2017-10-23] MEDS: Amiodarone 200 MG Tab PO SCH (10:23)
[2017-10-23] MEDS: LORazepam 0.5 MG Tab PO PRN ×2 (12:23→20:56)
[2017-10-23] MEDS ORDERED: traMADol 50 MG Tab ONE (12:26)
[2017-10-23] MEDS ORDERED: Testosterone Cypionate 200 MG/ML MDV IM SCH (14:45)
[2017-10-23] MEDS: Rivaroxaban 15 MG Tab PO SCH (17:15)
[2017-10-23] MEDS: traMADol 50 MG Tab PO PRN (20:56)
[2017-10-23] MEDS: Oxybutynin 5 MG Tab.ER PO SCH (20:56)
[2017-10-23] MEDS: atorvaSTATin 40 MG Tab PO SCH (20:57)
[2017-10-24] MEDS: Lactated Ringers 1,000 ML IV SCH (07:09)
[2017-10-24] MEDS: Cyanocobalamin (Vitamin B12) 1,000 MCG/ML SDV IM SCH (08:24)
[2017-10-24] MEDS: Clopidogrel 75 MG Tab PO SCH (08:24)
[2017-10-24] MEDS: Metoprolol Tartrate 50 MG Tab PO SCH (08:25)
[2017-10-24] MEDS: Potassium Chloride 20 MEQ Tab.ER PO SCH (08:26)
[2017-10-24] MEDS: Furosemide 40 MG Tab PO SCH (08:26)
[2017-10-24] MEDS: Escitalopram 20 MG Tab PO SCH (08:27)
[2017-10-24] MEDS: Megestrol Susp 40 MG/ML ML (240 ML Bottle) PO SCH ×2 (08:30→16:50)
[2017-10-24] MEDS: Amiodarone 200 MG Tab PO SCH (09:24)
--- NOTE | 2017-10-24 10:08 | PCM.PN ---
- General Info Date of Service: 10/23/17 Subjective Update: Patient has decreased alertness and decreased appetite that has been consistent. He has maintained weight but appears weaker. Patient denies any concerns but continues to be disoriented to time. - Review of Systems General: Reports: Weakness HEENT: Reports: No Symptoms Pulmonary: Reports: No Symptoms Cardiovascular: Reports: No Symptoms Gastrointestinal: Reports: No Symptoms Musculoskeletal: Reports: No Symptoms Skin: Reports: Other (decubitus ulcerations) Neurological: Reports: Confusion, Weakness - Patient Data Vitals - Most Recent: Last Vital Signs Temp 36.9 C 10/24/17 08:21 Pulse 65 10/24/17 08:25 Resp 18 10/24/17 08:21 BP 116/61 10/24/17 08:25 Pulse Ox 92 L 10/24/17 08:34 Weight - Most Recent: 76.657 kg I&O - Last 24 Hours: Intake & Output 10/23/17 10/24/17 10/24/17 22:59 06:59 14:59 Intake Total 1020 940 Balance 1020 940 Med Orders - Current: Current Medications Acetaminophen (Tylenol) 325 - 650 mg PO Q4H PRN PRN Reason: Pain Amiodarone HCl (Cordarone) 200 mg PO DAILY@1000 [facility] Last Admin: 10/24/17 09:24 Dose: 200 mg Atorvastatin Calcium (Lipitor) 40 mg PO QPM [facility] Last Admin: 10/23/17 20:57 Dose: 40 mg Bisacodyl (Dulcolax) 10 mg RECTAL DAILY PRN PRN Reason: Constipation Clopidogrel Bisulfate (Plavix) 75 mg PO DAILY [facility] Last Admin: 10/24/17 08:24 Dose: 75 mg Docusate Sodium (Colace) 100 mg PO DAILY PRN PRN Reason: Constipation Escitalopram Oxalate (Lexapro) 10 mg PO DAILY [facility] Last Admin: 10/24/17 08:27 Dose: 10 mg Furosemide (Lasix) 40 mg PO DAILY [facility] Last Admin: 10/24/17 08:26 Dose: 40 mg Thiamine HCl 200 mg/ Folic Acid 50 mg/ Magnesium Sulfate 1 gm/ Multivitamins/ Minerals 10 ml/ Lactated Ringer's 1,024 mls @ 100 mls/hr IV ASDIRECTED [facility] Lactated Ringer's (Ringers, Lactated) 1,000 mls @ 75 mls/hr IV ASDIRECTED [facility] Last Admin: 10/24/17 07:09 Dose: 75 mls/hr Lorazepam (Ativan) 0.5 mg PO Q6H PRN PRN Reason: Anxiety Last Admin: 10/23/17 20:56 Dose: 0.5 mg Megestrol Acetate (Megace 40 Mg/Ml Susp) 400 mg PO 0730,1630 [facility] Last Admin: 10/24/17 08:30 Dose: 400 mg Metoprolol Tartrate (Lopressor) 50 mg PO DAILY [facility] Last Admin: 10/24/17 08:25 Dose: 50 mg Mexiletine HCl (Mexitil) 200 mg PO Q8HR [facility] Last Admin: 10/24/17 07:08 Dose: Not Given Nitroglycerin (Nitrostat) 0.4 mg SL ASDIRECTED PRN PRN Reason: Chest Pain Gatorade 240 each GTUBE QID [facility] Last Admin: 10/19/17 21:52 Dose: Not Given Oxybutynin Chloride (Oxybutynin Er) 5 mg PO BEDTIME [facility] Last Admin: 10/23/17 20:56 Dose: 5 mg Potassium Chloride (Klor-Con M20) 20 meq PO DAILY [facility] Last Admin: 10/24/17 08:26 Dose: 20 meq Rivaroxaban (Xarelto) 15 mg PO WITHDINNER [facility] Last Admin: 10/23/17 17:15 Dose: 15 mg Sodium Chloride (Saline Flush) 10 ml FLUSH ASDIRECTED PRN PRN Reason: Keep Vein Open Last Admin: 10/19/17 07:55 Dose: 10 ml Tramadol HCl (Ultram) 25 mg PO Q4H PRN PRN Reason: Pain Last Admin: 10/23/17 20:56 Dose: 25 mg Discontinued Medications Acetaminophen (Tylenol) 325 mg PO Q4H PRN PRN Reason: Pain Last Admin: 10/21/17 20:32 Dose: 650 mg Amiodarone HCl (Cordarone) 200 mg PO DAILY [facility] Last Admin: 10/19/17 08:38 Dose: 200 mg Cyanocobalamin (Vitamin B12) 1,000 mcg IM DAILY [facility] Stop: 10/24/17 08:01 Last Admin: 10/24/17 08:24 Dose: 1,000 mcg Sodium Chloride (Normal Saline) 1,000 mls @ 500 mls/hr IV ONETIME ONE Stop: 10/18/17 13:59 Last Admin: 10/18/17 12:00 Dose: 500 mls/hr Megestrol Acetate (Megace 40 Mg/Ml Susp) 400 mg PO BID [facility] Last Admin: 10/21/17 21:02 Dose: Not Given Sodium Chloride (Saline Flush) 10 ml FLUSH ASDIRECTED PRN PRN Reason: Keep Vein Open Testosterone Cypionate (Depo-Testosterone) 400 mg IM ASDIRECTED [facility] Stop: 10/23/17 23:59 Last Admin: 10/23/17 14:46 Dose: 400 mg Tramadol HCl (Ultram) Confirm Administered Dose 50 mg .ROUTE .STK-MED ONE Stop: 10/23/17 12:27 Last Admin: 10/23/17 12:30 Dose: 50 mg - Exam General: Cooperative, Obtunded HEENT: Pupils Equal, Pupils Reactive, EOMI Neck: Supple Lungs: Clear to Auscultation, Normal Respiratory Effort Cardiovascular: Regular Rate, Regular Rhythm Extremities: Normal Inspection Peripheral Pulses: 2+: Dorsalis Pedis (L), Dorsalis Pedis (R) Skin: Warm, Dry Wound/Incisions: Healing Well, No Drainage - Problem List & Annotations (1) Dementia SNOMED Code(s): 08333570 Code(s): F03.90 - UNSPECIFIED DEMENTIA WITHOUT BEHAVIORAL DISTURBANCE Status: Acute Current Visit: Yes (2) Debility SNOMED Code(s): 47611261 Code(s): R53.81 - OTHER MALAISE Status: Acute Current Visit: Yes (3) Severe muscle deconditioning SNOMED Code(s): 582266477 Code(s): R29.898 - OTH SYMPTOMS AND SIGNS INVOLVING THE MUSCULOSKELETAL SYSTEM Status: Acute Current Visit: Yes (4) Weight loss, non-intentional SNOMED Code(s): 554820591 Code(s): R63.4 - ABNORMAL WEIGHT LOSS Status: Acute Current Visit: Yes (5) Broken skin SNOMED Code(s): 177481919 Code(s): R23.8 - OTHER SKIN CHANGES Status: Acute Current Visit: No (6) Weakness generalized SNOMED Code(s): 63768438 Code(s): R53.1 - WEAKNESS Status: Acute Current Visit: No (7) Anemia SNOMED Code(s): 053565373 Code(s): D64.9 - ANEMIA, UNSPECIFIED Status: Chronic Priority: Medium Current Visit: No Qualifiers: Anemia type: unspecified type Qualified Code(s): D64.9 - Anemia, unspecified (8) Chronic renal disease SNOMED Code(s): 175788161 Code(s): N18.9 - CHRONIC KIDNEY DISEASE, UNSPECIFIED Status: Chronic Priority: Medium Current Visit: No Qualifiers: Chronic kidney disease stage: stage 3 (moderate) Qualified Code(s): N18.3 - Chronic kidney disease, stage 3 (moderate) (9) Degenerative joint disease involving multiple joints SNOMED Code(s): 585629568 Code(s): M15.9 - POLYOSTEOARTHRITIS, UNSPECIFIED Status: Chronic Priority : High Current Visit: No Qualifiers: Osteoarthritis type: unspecified Qualified Code(s): M15.9 - Polyosteoarthritis, unspecified - Problem List Review Problem List Initiated/Reviewed/Updated: Yes - My Orders Last 24 Hours: My Active Orders 10/23/17 09:25 CLOSTRIDIUM DIFFICILE BY PCR [RM] Routine 10/23/17 12:30 traMADol [Ultram] 25 mg PO Q4H PRN - Assessment Assessment:: Senile debility Decreased appetite Failure to thrive - Plan Plan:: Patient to be placed back into inpatient care due to the severe muscle deconditioning and severe weight loss. We will place an NG tube for feeding and consider TPN next week if NG feeding and fluids fail. Weight daily. Family agree with current management plan and also consideration of care center and comfort cares discussed. Code status discussed and will discuss with son Isael and daughter. 10/19/17 Pt did eat his break fast today. also he has eaten some of his lunch. Will encourage oral diet and Slow IV hydration. Pt is doing better today. I will have talk with pt and his spouse tomorrow about further care of patient. He has not been progressing well with physical therapy. If he continues to eat better, might not need to be under acute care by Sunday. 10/20/17 Pt is doing better, he has started to eat better and seems to have better appetite now. will continue oral diet for now. Will continue IV fluids until is hydration improves and he has good urine output. Will get CBC and CMP done tomorrow and followup. 10/21/16 Apparently pt has had half his meals yesterday, but today has not eaten much fro his breakfast. His lbs done today shows very stable CBC and CMP other than his albumin at 2.1 which is low. Pt has not been on megace since he has been on acute care, hence I have restarted his Megace at 400mg BID before meals. I did group counselor patient on depression today, he claims he is not depressed. He is on lexapro. Will have PT eval for wound care. Will see if megace does any improvement with his appetite. 10/22/17 Pt is alert. he claims he does not want to have NG feeds, will try eating. But he has refused to eat his breakfast today. His recent lab works are normal other then hypoproteinemia He has been on megace for appetite stimulant for past 2 days now. family needs to make decision on what they really want us to do. Also he has not walked for more then a week and has refused physical therapy. I do want PT to see patient for decubitus wound management. I do not know or think IV parental nutrition is good choice considering patient's general health. IF family want to plan on [facility] issue with feeding, G-tube will be option, which might help with pt improvement or might just prolong patient suffering. Might need social service input of further care for patient. 10/23/17 Discussed with family status. They have considered a G-tube and considering consult with Surgeon later this week. Discussed continued supplementation and hydration and minerals. Assessed options of comfort care with family. Family are very understanding and at this point in time we will continue with current IVF and nutrition. Family and staff have noticed patients continued decline.
[2017-10-24] MEDS ORDERED: Furosemide 40 MG/4 ML VIAL IVPUSH ONE (11:05)
[2017-10-24] MEDS: Rivaroxaban 15 MG Tab PO SCH (17:11)
[2017-10-24] MEDS: atorvaSTATin 40 MG Tab PO SCH (20:30)
[2017-10-24] MEDS: Oxybutynin 5 MG Tab.ER PO SCH (20:30)
[2017-10-24] MEDS: LORazepam 0.5 MG Tab PO PRN (21:17)
[2017-10-24] MEDS: traMADol 50 MG Tab PO PRN (21:17)
[2017-10-25 08:19] VITALS: BP 110/63
[2017-10-25] MEDS: Potassium Chloride 20 MEQ Tab.ER PO SCH (08:26)
[2017-10-25] MEDS: Escitalopram 20 MG Tab PO SCH (08:26)
[2017-10-25] MEDS: Metoprolol Tartrate 50 MG Tab PO SCH (08:27)
[2017-10-25] MEDS: Clopidogrel 75 MG Tab PO SCH (08:27)
[2017-10-25] MEDS: Megestrol Susp 40 MG/ML ML (240 ML Bottle) PO SCH (08:28)
[2017-10-25] MEDS: Furosemide 40 MG Tab PO SCH (08:28)
[2017-10-25] MEDS: Morphine 2 MG/ML Syringe IVPUSH PRN ×3 (09:06→10:30)
--- NOTE | 2017-10-25 10:18 | PCM.PN ---
- General Info Date of Service: 10/24/17 Subjective Update: Patient continues to decline. He is able to respond but appears weaker by the day. Family present. Functional Status: Reports: Pain Controlled - Review of Systems General: Reports: Weakness Pulmonary: Reports: No Symptoms Cardiovascular: Reports: No Symptoms Neurological: Reports: Confusion, Weakness Psychiatric: Reports: Confusion - Patient Data Vitals - Most Recent: Last Vital Signs Temp 36.8 C 10/25/17 08:00 Pulse 65 10/25/17 08:27 Resp 18 10/25/17 08:00 BP 110/63 10/25/17 08:27 Pulse Ox 89 L 10/25/17 08:00 Weight - Most Recent: 77.196 kg I&O - Last 24 Hours: Intake & Output 10/24/17 10/25/17 10/25/17 22:59 06:59 14:59 Intake Total 718 380 Balance 718 380 Nader Results Last 24 Hours: Microbiology 10/24/17 11:34 Clostridium difficile (PCR) - Final Stool / Feces NEGATIVE CDIFF TOXIN Med Orders - Current: Current Medications Acetaminophen (Tylenol) 325 - 650 mg PO Q4H PRN PRN Reason: Pain Amiodarone HCl (Cordarone) 200 mg PO DAILY@1000 [facility] Last Admin: 10/24/17 09:24 Dose: 200 mg Atorvastatin Calcium (Lipitor) 40 mg PO QPM [facility] Last Admin: 10/24/17 20:30 Dose: 40 mg Bisacodyl (Dulcolax) 10 mg RECTAL DAILY PRN PRN Reason: Constipation Clopidogrel Bisulfate (Plavix) 75 mg PO DAILY [facility] Last Admin: 10/25/17 08:27 Dose: 75 mg Docusate Sodium (Colace) 100 mg PO DAILY PRN PRN Reason: Constipation Escitalopram Oxalate (Lexapro) 10 mg PO DAILY [facility] Last Admin: 10/25/17 08:26 Dose: 10 mg Furosemide (Lasix) 40 mg PO DAILY [facility] Last Admin: 10/25/17 08:28 Dose: 40 mg Lactated Ringer's (Ringers, Lactated) 1,000 mls @ 75 mls/hr IV ASDIRECTED [facility] Last Admin: 10/24/17 07:09 Dose: 75 mls/hr Lorazepam (Ativan) 0.5 mg PO Q6H PRN PRN Reason: Anxiety Last Admin: 10/24/17 21:17 Dose: 0.5 mg Megestrol Acetate (Megace 40 Mg/Ml Susp) 400 mg PO 0730,1630 [facility] Last Admin: 10/25/17 08:28 Dose: 400 mg Metoprolol Tartrate (Lopressor) 50 mg PO DAILY [facility] Last Admin: 10/25/17 08:27 Dose: 50 mg Mexiletine HCl (Mexitil) 200 mg PO Q8HR [facility] Last Admin: 10/25/17 08:26 Dose: 200 mg Morphine Sulfate (Morphine) 2 mg IVPUSH Q2H PRN PRN Reason: Pain Last Admin: 10/25/17 09:06 Dose: 2 mg Nitroglycerin (Nitrostat) 0.4 mg SL ASDIRECTED PRN PRN Reason: Chest Pain Gatorade 240 each GTUBE QID [facility] Last Admin: 10/19/17 21:52 Dose: Not Given Oxybutynin Chloride (Oxybutynin Er) 5 mg PO BEDTIME [facility] Last Admin: 10/24/17 20:30 Dose: 5 mg Potassium Chloride (Klor-Con M20) 20 meq PO DAILY [facility] Last Admin: 10/25/17 08:26 Dose: 20 meq Rivaroxaban (Xarelto) 15 mg PO WITHDINNER [facility] Last Admin: 10/24/17 17:11 Dose: 15 mg Sodium Chloride (Saline Flush) 10 ml FLUSH ASDIRECTED PRN PRN Reason: Keep Vein Open Last Admin: 10/19/17 07:55 Dose: 10 ml Tramadol HCl (Ultram) 25 mg PO Q4H PRN PRN Reason: Pain Last Admin: 10/24/17 21:17 Dose: 25 mg Discontinued Medications Acetaminophen (Tylenol) 325 mg PO Q4H PRN PRN Reason: Pain Last Admin: 10/21/17 20:32 Dose: 650 mg Amiodarone HCl (Cordarone) 200 mg PO DAILY [facility] Last Admin: 10/19/17 08:38 Dose: 200 mg Cyanocobalamin (Vitamin B12) 1,000 mcg IM DAILY [facility] Stop: 10/24/17 08:01 Last Admin: 10/24/17 08:24 Dose: 1,000 mcg Furosemide (Lasix) 40 mg IVPUSH NOW ONE Stop: 10/24/17 11:06 Last Admin: 10/24/17 11:30 Dose: 40 mg Sodium Chloride (Normal Saline) 1,000 mls @ 500 mls/hr IV ONETIME ONE Stop: 10/18/17 13:59 Last Admin: 10/18/17 12:00 Dose: 500 mls/hr Megestrol Acetate (Megace 40 Mg/Ml Susp) 400 mg PO BID [facility] Last Admin: 10/21/17 21:02 Dose: Not Given Sodium Chloride (Saline Flush) 10 ml FLUSH ASDIRECTED PRN PRN Reason: Keep Vein Open Testosterone Cypionate (Depo-Testosterone) 400 mg IM ASDIRECTED [facility] Stop: 10/23/17 23:59 Last Admin: 10/23/17 14:46 Dose: 400 mg Tramadol HCl (Ultram) Confirm Administered Dose 50 mg .ROUTE .STK-MED ONE Stop: 10/23/17 12:27 Last Admin: 10/23/17 12:30 Dose: 50 mg - Exam General: Obtunded HEENT: Pupils Equal, Pupils Reactive, EOMI Lungs: Clear to Auscultation, Normal Respiratory Effort Cardiovascular: Regular Rate, Regular Rhythm Extremities: Normal Inspection Peripheral Pulses: 2+: Dorsalis Pedis (L), Dorsalis Pedis (R) Wound/Incisions: Healing Well, Erythema Psy/Mental Status: Normal Affect, Normal Mood - Problem List & Annotations (1) Dementia SNOMED Code(s): 93726900 Code(s): F03.90 - UNSPECIFIED DEMENTIA WITHOUT BEHAVIORAL DISTURBANCE Status: Acute Current Visit: Yes (2) Debility SNOMED Code(s): 28744046 Code(s): R53.81 - OTHER MALAISE Status: Acute Current Visit: Yes (3) Severe muscle deconditioning SNOMED Code(s): 666812267 Code(s): R29.898 - OTH SYMPTOMS AND SIGNS INVOLVING THE MUSCULOSKELETAL SYSTEM Status: Acute Current Visit: Yes (4) Weight loss, non-intentional SNOMED Code(s): 639534918 Code(s): R63.4 - ABNORMAL WEIGHT LOSS Status: Acute Current Visit: Yes (5) Broken skin SNOMED Code(s): 978970472 Code(s): R23.8 - OTHER SKIN CHANGES Status: Acute Current Visit: No (6) Weakness generalized SNOMED Code(s): 96567151 Code(s): R53.1 - WEAKNESS Status: Acute Current Visit: No (7) Anemia SNOMED Code(s): 448985194 Code(s): D64.9 - ANEMIA, UNSPECIFIED Status: Chronic Priority: Medium Current Visit: No Qualifiers: Anemia type: unspecified type Qualified Code(s): D64.9 - Anemia, unspecified (8) Chronic renal disease SNOMED Code(s): 692708350 Code(s): N18.9 - CHRONIC KIDNEY DISEASE, UNSPECIFIED Status: Chronic Priority: Medium Current Visit: No Qualifiers: Chronic kidney disease stage: stage 3 (moderate) Qualified Code(s): N18.3 - Chronic kidney disease, stage 3 (moderate) (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 We will place an NG tube for feeding and consider TPN next week if NG feeding and fluids fail. Weight daily. Family agree with current management plan and also consideration of care center and comfort cares discussed. Code status discussed and will discuss with son Isael and daughter. 10/19/17 Pt did eat his break fast today. also he has eaten some of his lunch. Will encourage oral diet and Slow IV hydration. Pt is doing better today. I will have talk with pt and his spouse tomorrow about further care of patient. He has not been progressing well with physical therapy. If he continues to eat better, might not need to be under acute care by Sunday. 10/20/17 Pt is doing better, he has started to eat better and seems to have better appetite now. will continue oral diet for now. Will continue IV fluids until is hydration improves and he has good urine output. Will get CBC and CMP done tomorrow and followup. 10/21/16 Apparently pt has had half his meals yesterday, but today has not eaten much fro his breakfast. His lbs done today shows very stable CBC and CMP other than his albumin at 2.1 which is low. Pt has not been on megace since he has been on acute care, hence I have restarted his Megace at 400mg BID before meals. I did college admissions counselor patient on depression today, he claims he is not depressed. He is on lexapro. Will have PT eval for wound care. Will see if megace does any improvement with his appetite. 10/22/17 Pt is alert. he claims he does not want to have NG feeds, will try eating. But he has refused to eat his breakfast today. His recent lab works are normal other then hypoproteinemia He has been on megace for appetite stimulant for past 2 days now. family needs to make decision on what they really want us to do. Also he has not walked for more then a week and has refused physical therapy. I do want PT to see patient for decubitus wound management. I do not know or think IV parental nutrition is good choice considering patient's general health. IF family want to plan on skilled nursing issue with feeding, G-tube will be option, which might help with pt improvement or might just prolong patient suffering. Might need social service input of further care for patient. 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 We will try this as a one time trial. 10/24/17 Patient continues to decline despite fluids and nutrition. Patient has been scheduled for Peg-Tube consult. At this time patient is very weak and dementia has been stable. We will continue to monitor today and if symptoms progress we will have to consider comfort cares.
[2017-10-25] MEDS: Amiodarone 200 MG Tab PO SCH (10:19)
--- NOTE | 2017-10-25 10:19 | PCM.DCSUM1 ---
Discharge Summary - Discharge Data Discharge Date: 10/25/17 Discharge Disposition: DC/Tfer W/I Hosp To Swing [facility] Condition: Good - Discharge Diagnosis/Problem(s) (1) Dementia SNOMED Code(s): 91896793 ICD Code: F03.90 - UNSPECIFIED DEMENTIA WITHOUT BEHAVIORAL DISTURBANCE Status: Acute Current Visit: Yes (2) Debility SNOMED Code(s): 51615380 ICD Code: R53.81 - OTHER MALAISE Status: Acute Current Visit: Yes (3) Severe muscle deconditioning SNOMED Code(s): 191156622 ICD Code: R29.898 - OT SYMPTOMS AND SIGNS INVOLVING THE MUSCULOSKELETAL SYSTEM Status: Acute Current Visit: Yes (4) Weight loss, non-intentional SNOMED Code(s): 886881275 ICD Code: R63.4 - ABNORMAL WEIGHT LOSS Status: Acute Current Visit: Yes (5) Broken skin SNOMED Code(s): 807216848 ICD Code: R23.8 - OTHER SKIN CHANGES Status: Acute Current Visit: No (6) Weakness generalized SNOMED Code(s): 04194760 ICD Code: R53.1 - WEAKNESS Status: Acute Current Visit: No (7) Anemia SNOMED Code(s): 669118999 ICD Code: D64.9 - ANEMIA, UNSPECIFIED Status: Chronic Priority: Medium Current Visit: No Qualifiers: Anemia type: unspecified type Qualified Code(s): D64.9 - Anemia, unspecified (8) Chronic renal disease SNOMED Code(s): 383109001 ICD Code: N18.9 - CHRONIC KIDNEY DISEASE, UNSPECIFIED Status: Chronic Priority: Medium Current Visit: No Qualifiers: Chronic kidney disease stage: stage 3 (moderate) Qualified Code(s): N18.3 - Chronic kidney disease, stage 3 (moderate) (9) Degenerative joint disease involving multiple joints SNOMED Code(s): 038743352 ICD Code: M15.9 - POLYOSTEOARTHRITIS, UNSPECIFIED Status: Chronic Priority: High Current Visit: No Qualifiers: Osteoarthritis type: unspecified Qualified Code(s): M15.9 - Polyosteoarthritis, unspecified (10) Low testosterone SNOMED Code(s): 810877624 ICD Code: R79.89 - OTHER SPECIFIED ABNORMAL FINDINGS OF BLOOD CHEMISTRY Status: Acute Current Visit: Yes - Patient Summary/Data Consults: Consultations 05/10/18 11:51 Consult to Wound Care Services [CONS] Routine Comment: Physician Instructions: 10/21/17 11:57 Consult to Physical Therapy [PT Evaluation and Treatment] [CONS] Routine Please Evaluate and Treat. PT Reason for Consult: Wound Care Special Instructions: decubitus ulcer of sacrum and right foot This query below is only for informational purposes and is not editable. Admission Diagnosis/Problem: Severe muscle deconditioning - Discharge Plan Home Medications: Home Meds Metoprolol Tartrate [Lopressor] 50 mg PO DAILY 10/08/14 [History] Amiodarone [Cordarone] 200 mg PO DAILY 09/12/17 [History] Clopidogrel [Plavix] 75 mg PO DAILY 09/12/17 [History] Escitalopram [Lexapro] 10 mg PO DAILY 09/12/17 [History] Furosemide [Lasix] 40 mg PO DAILY 09/12/17 [History] Nitroglycerin [Nitrostat] 0.4 mg SL ASDIRECTED PRN 09/12/17 [History] Potassium Chloride 20 meq PO DAILY 09/12/17 [History] Rivaroxaban [Xarelto] 15 mg PO DAILY 09/12/17 [History] atorvaSTATin [Lipitor] 40 mg PO QPM 09/12/17 [History] Mexiletine HCl 200 mg PO Q8HR 09/28/17 [History] Docusate Sodium [Colace] 100 mg PO DAILY PRN cap 10/01/17 [Rx] Bisacodyl [Dulcolax] 10 mg RECTAL DAILY PRN supp 10/18/17 [Rx] Escitalopram [Lexapro] 10 mg PO DAILY tablet 10/18/17 [Rx] Folic Acid 1 mg IV ASDIRECTED mdv 10/18/17 [Rx] LORazepam [Ativan] 0.5 mg PO Q6H PRN tablet 10/18/17 [Rx] Lactated Ringers [Ringers, Lactated] 1,000 ml IV ASDIRECTED bag 10/18/17 [Rx] MVI, Adult with Vitamin K [Infuvite Adult] 10 ml IV ASDIRECTED sdv 10/18/17 [Rx ] Magnesium Sulfate [Magnesium Sulfate 50%] 2 gm IV ASDIRECTED sdv 10/18/17 [Rx] Mexiletine 200 mg PO Q8HR cap 10/18/17 [Rx] Miscellaneous Medical Supply [DME for Prescription] 1,000 ml IV ASDIRECTED each 10/18/17 [Rx] Oxybutynin [Oxybutynin ER] 5 mg PO BEDTIME tab.er 10/18/17 [Rx] Rivaroxaban [Xarelto] 15 mg PO WITHDINNER tablet 10/18/17 [Rx] Sodium Chloride 0.9% [Saline Flush] 10 ml FLUSH ASDIRECTED PRN syringe [Rx] Thiamine [Vitamin B-1] 100 mg IV ASDIRECTED mdv 10/18/17 [Rx] Patient Handouts: Iron tablets, capsules, extended-release tablets - Discharge Summary/Plan Comment DC Time >30 min.: Yes Discharge Summary/Plan Comment: Counseled family on prognosis. Patient has continually gotten weaker and deconditioned. He continues to refuse to eat. He has gotten weaker daily and comfort care discussed with Son 'Isael' and . Family agree that in the best interests of Balbir to place him in comfort care. We will continue pain management and wound cares and transfer to swing bed. - Patient Data Vitals - Most Recent: Last Vital Signs Temp 36.8 C 10/25/17 08:00 Pulse 65 10/25/17 08:27 Resp 18 10/25/17 08:00 BP 110/63 10/25/17 08:27 Pulse Ox 89 L 10/25/17 08:00 Weight - Most Recent: 77.196 kg I&O - Last 24 hours: Intake & Output 10/24/17 10/25/17 10/25/17 22:59 06:59 14:59 Intake Total 718 380 Balance 718 380 BEAR Results - Last 24 hrs: Microbiology 10/24/17 11:34 Clostridium difficile (PCR) - Final Stool / Feces NEGATIVE CDIFF TOXIN Med Orders - Current: Current Medications Acetaminophen (Tylenol) 325 - 650 mg PO Q4H PRN PRN Reason: Pain Amiodarone HCl (Cordarone) 200 mg PO DAILY@1000 [facility] Last Admin: 10/24/17 09:24 Dose: 200 mg Atorvastatin Calcium (Lipitor) 40 mg PO QPM [facility] Last Admin: 10/24/17 20:30 Dose: 40 mg Bisacodyl (Dulcolax) 10 mg RECTAL DAILY PRN PRN Reason: Constipation Clopidogrel Bisulfate (Plavix) 75 mg PO DAILY [facility] Last Admin: 10/25/17 08:27 Dose: 75 mg Docusate Sodium (Colace) 100 mg PO DAILY PRN PRN Reason: Constipation Escitalopram Oxalate (Lexapro) 10 mg PO DAILY [facility] Last Admin: 10/25/17 08:26 Dose: 10 mg Furosemide (Lasix) 40 mg PO DAILY [facility] Last Admin: 10/25/17 08:28 Dose: 40 mg Lactated Ringer's (Ringers, Lactated) 1,000 mls @ 75 mls/hr IV ASDIRECTED [facility] Last Admin: 10/24/17 07:09 Dose: 75 mls/hr Lorazepam (Ativan) 0.5 mg PO Q6H PRN PRN Reason: Anxiety Last Admin: 10/24/17 21:17 Dose: 0.5 mg Megestrol Acetate (Megace 40 Mg/Ml Susp) 400 mg PO 0730,1630 [facility] Last Admin: 10/25/17 08:28 Dose: 400 mg Metoprolol Tartrate (Lopressor) 50 mg PO DAILY [facility] Last Admin: 10/25/17 08:27 Dose: 50 mg Mexiletine HCl (Mexitil) 200 mg PO Q8HR [facility] Last Admin: 10/25/17 08:26 Dose: 200 mg Morphine Sulfate (Morphine) 2 mg IVPUSH Q2H PRN PRN Reason: Pain Last Admin: 10/25/17 09:06 Dose: 2 mg Nitroglycerin (Nitrostat) 0.4 mg SL ASDIRECTED PRN PRN Reason: Chest Pain Gatorade 240 each GTUBE QID [facility] Last Admin: 10/19/17 21:52 Dose: Not Given Oxybutynin Chloride (Oxybutynin Er) 5 mg PO BEDTIME [facility] Last Admin: 10/24/17 20:30 Dose: 5 mg Potassium Chloride (Klor-Con M20) 20 meq PO DAILY [facility] Last Admin: 10/25/17 08:26 Dose: 20 meq Rivaroxaban (Xarelto) 15 mg PO WITHDINNER [facility] Last Admin: 10/24/17 17:11 Dose: 15 mg Sodium Chloride (Saline Flush) 10 ml FLUSH ASDIRECTED PRN PRN Reason: Keep Vein Open Last Admin: 10/19/17 07:55 Dose: 10 ml Tramadol HCl (Ultram) 25 mg PO Q4H PRN PRN Reason: Pain Last Admin: 10/24/17 21:17 Dose: 25 mg Discontinued Medications Acetaminophen (Tylenol) 325 mg PO Q4H PRN PRN Reason: Pain Last Admin: 10/21/17 20:32 Dose: 650 mg Amiodarone HCl (Cordarone) 200 mg PO DAILY [facility] Last Admin: 10/19/17 08:38 Dose: 200 mg Cyanocobalamin (Vitamin B12) 1,000 mcg IM DAILY [facility] Stop: 10/24/17 08:01 Last Admin: 10/24/17 08:24 Dose: 1,000 mcg Furosemide (Lasix) 40 mg IVPUSH NOW ONE Stop: 10/24/17 11:06 Last Admin: 10/24/17 11:30 Dose: 40 mg Sodium Chloride (Normal Saline) 1,000 mls @ 500 mls/hr IV ONETIME ONE Stop: 10/18/17 13:59 Last Admin: 10/18/17 12:00 Dose: 500 mls/hr Megestrol Acetate (Megace 40 Mg/Ml Susp) 400 mg PO BID [facility] Last Admin: 10/21/17 21:02 Dose: Not Given Sodium Chloride (Saline Flush) 10 ml FLUSH ASDIRECTED PRN PRN Reason: Keep Vein Open Testosterone Cypionate (Depo-Testosterone) 400 mg IM ASDIRECTED [facility] Stop: 10/23/17 23:59 Last Admin: 10/23/17 14:46 Dose: 400 mg Tramadol HCl (Ultram) Confirm Administered Dose 50 mg .ROUTE .STK-MED ONE Stop: 10/23/17 12:27 Last Admin: 10/23/17 12:30 Dose: 50 mg
[2017-10-25] MEDS ORDERED: Morphine 2 MG/ML Syringe IVPUSH PRN (12:00)
== END 2017-10-25 13:00 | disposition swing bed (61) | DRG 556 ==
LOC: UNDOADMIN 11:51 → LB.MS 11:51
PROVIDERS: ADMIT Family Medicine; ATTEND Family Medicine
PROC: 0DH67UZ Insertion of Feeding Device into Stomach, Via Natural or Artificial Opening (ICD-10-PCS; principal; 2017-10-18)
DX: R29.898 Other symptoms and signs involving the musculoskeletal system (principal); I13.0 Hypertensive heart and chronic kidney disease with heart failure and stage 1 through stage 4 chronic kidney disease, or unspecified chronic kidney disease; E77.8 Other disorders of glycoprotein metabolism; R62.51 Failure to thrive (child); L89.152 Pressure ulcer of sacral region, stage 2; L89.612 Pressure ulcer of right heel, stage 2; R63.0 Anorexia; R53.81 Other malaise; R53.1 Weakness; H54.7 Unspecified visual loss; I50.9 Heart failure, unspecified; R33.9 Retention of urine, unspecified; F32.9 Major depressive disorder, single episode, unspecified; R63.4 Abnormal weight loss; R23.8 Other skin changes; D64.9 Anemia, unspecified; N18.3 Chronic kidney disease, stage 3 (moderate); M15.9 Polyosteoarthritis, unspecified; Z95.810 Presence of automatic (implantable) cardiac defibrillator; Z79.899 Other long term (current) drug therapy; Z87.440 Personal history of urinary (tract) infections; Z96.1 Presence of intraocular lens; Z90.49 Acquired absence of other specified parts of digestive tract
CPT/HCPCS: 36415; 80053; 85025; 87493; A9270-GY; J1071; J1940; J2270; J3420; J7040; J7050; J7120

== ENCOUNTER 2017-10-23 09:38 | Inpatient (IN) | payer MEDICARE, BC ==
[2017-10-25] MEDS ORDERED: Tuberculin, PPD 5 Units/0.1 ML 1 ML MDV IDERM ONE (11:54)
--- NOTE | 2017-10-25 12:00 | PCM.HP ---
H&P History of Present Illness - General Date of Service: 10/25/17 Admit Problem/Dx: Admission Diagnosis/Problem Admission Diagnosis/Problem Weakness Source of Information: Patient, Family, Old Records, RN Notes Reviewed, Significant Other History Limitations: Reports: Other (Dementia) - History of Present Illness Initial Comments - Free Text/Narative: This is an 87yo M with progressive dementia and severe deconditioning who has no appetite and has been getting weaker and weaker daily. He is now currently admitted for comfort care, wound care and pain management. Family are in agreement with plan of care. Onset of Symptoms: Reports: Gradual Duration of Symptoms: Reports: Week(s):, Getting Worse Location: Reports: Generalized Associated Symptoms: Reports: Confusion, Loss of Appetite, Weakness - Related Data Allergies/Adverse Reactions: Allergies Allergy/AdvReac Type Severity Reaction Status Date / Time No Known Allergies Allergy Verified 10/15/17 09:02 Home Medications: Home Meds Metoprolol Tartrate [Lopressor] 50 mg PO DAILY 10/08/14 [History] Amiodarone [Cordarone] 200 mg PO DAILY 09/12/17 [History] Clopidogrel [Plavix] 75 mg PO DAILY 09/12/17 [History] Escitalopram [Lexapro] 10 mg PO DAILY 09/12/17 [History] Furosemide [Lasix] 40 mg PO DAILY 09/12/17 [History] Nitroglycerin [Nitrostat] 0.4 mg SL ASDIRECTED PRN 09/12/17 [History] Potassium Chloride 20 meq PO DAILY 09/12/17 [History] Rivaroxaban [Xarelto] 15 mg PO DAILY 09/12/17 [History] atorvaSTATin [Lipitor] 40 mg PO QPM 09/12/17 [History] Mexiletine HCl 200 mg PO Q8HR 09/28/17 [History] Docusate Sodium [Colace] 100 mg PO DAILY PRN cap 10/01/17 [Rx] Bisacodyl [Dulcolax] 10 mg RECTAL DAILY PRN supp 10/18/17 [Rx] Escitalopram [Lexapro] 10 mg PO DAILY tablet 10/18/17 [Rx] Folic Acid 1 mg IV ASDIRECTED mdv 10/18/17 [Rx] LORazepam [Ativan] 0.5 mg PO Q6H PRN tablet 10/18/17 [Rx] Lactated Ringers [Ringers, Lactated] 1,000 ml IV ASDIRECTED bag 10/18/17 [Rx] MVI, Adult with Vitamin K [Infuvite Adult] 10 ml IV ASDIRECTED sdv 10/18/17 [Rx ] Magnesium Sulfate [Magnesium Sulfate 50%] 2 gm IV ASDIRECTED sdv 10/18/17 [Rx] Mexiletine 200 mg PO Q8HR cap 10/18/17 [Rx] Miscellaneous Medical Supply [DME for Prescription] 1,000 ml IV ASDIRECTED each 10/18/17 [Rx] Oxybutynin [Oxybutynin ER] 5 mg PO BEDTIME tab.er 10/18/17 [Rx] Rivaroxaban [Xarelto] 15 mg PO WITHDINNER tablet 10/18/17 [Rx] Sodium Chloride 0.9% [Saline Flush] 10 ml FLUSH ASDIRECTED PRN syringe [Rx] Thiamine [Vitamin B-1] 100 mg IV ASDIRECTED mdv 10/18/17 [Rx] Past Medical History HEENT History: Reports: Impaired Vision Cardiovascular History: Reports: None, Automatic Implantable Cardioverter Defibrillators, Heart Failure, Hypertension, Pacemaker Respiratory History: Reports: None Other Gastrointestinal History: Cholescystitis Genitourinary History: Reports: Retention, Urinary, UTI, Recurrent Other Genitourinary History: Cystitis Musculoskeletal History: Reports: Fracture, RA Other Musculoskeletal History: non-diplaced fx pelvis, L-2.L-3 fx Psychiatric History: Reports: Depression Oncologic (Cancer) History: Reports: None Dermatologic History: Reports: Other (See Below) Other Dermatologic History: severly dry, scaly skin - Infectious Disease History Infectious Disease History: Reports: Chicken Pox, Measles, Mumps - Past Surgical History Head Surgeries/Procedures: Reports: None HEENT Surgical History: Reports: Other (See Below) Other HEENT Surgeries/Procedures: Occular Lens Implant x2. hearing well per patient Cardiovascular Surgical History: Reports: AICD, Pacer Respiratory Surgical History: Reports: None GI Surgical History: Reports: Cholecystectomy Male Surgical History: Reports: None Musculoskeletal Surgical History: Reports: None Social & Family History - Family History Family Medical History: Noncontributory - Caffeine Use Caffeine Use: Reports: Soda Other Caffeine Use: 1 a day - Living Situation & Occupation Living situation: Reports: Occupation: Retired H&P Review of Systems - Review of Systems: Review Of Systems: ROS reveals no pertinent complaints other than HPI. Exam - Exam Exam: See Below - Exam Quality Assessment: Other (Patient very weak but does respond to questions. ) General: Obtunded Cardiovascular: Regular Rate, Regular Rhythm GI/Abdominal Exam: Normal Bowel Sounds, Soft, Non-Tender Skin: Decubitis Neuro Extensive - Mental Status: Disorientation to Place, Disorientation to Time , Inattentive, Opens Eyes to Commands, Slow Response to Commands - Problem List (1) Palliative care patient SNOMED Code(s): 547499798 ICD Code: Z51.5 - ENCOUNTER FOR PALLIATIVE CARE Status: Acute Current Visit: Yes (2) Debility SNOMED Code(s): 97517948 ICD Code: R53.81 - OTHER MALAISE Status: Acute Current Visit: No (3) Dementia SNOMED Code(s): 39453096 ICD Code: F03.90 - UNSPECIFIED DEMENTIA WITHOUT BEHAVIORAL DISTURBANCE Status: Acute Current Visit: No (4) Low testosterone SNOMED Code(s): 796043868 ICD Code: R79.89 - OTHER SPECIFIED ABNORMAL FINDINGS OF BLOOD CHEMISTRY Status: Acute Current Visit: No (5) Severe muscle deconditioning SNOMED Code(s): 642759775 ICD Code: R29.898 - OTH SYMPTOMS AND SIGNS INVOLVING THE MUSCULOSKELETAL SYSTEM Status: Acute Current Visit: No (6) Weight loss, non-intentional SNOMED Code(s): 263238127 ICD Code: R63.4 - ABNORMAL WEIGHT LOSS Status: Acute Current Visit: No (7) Broken skin SNOMED Code(s): 737551707 ICD Code: R23.8 - OTHER SKIN CHANGES Status: Acute Current Visit: No (8) Pain management SNOMED Code(s): 149382083 ICD Code: R52 - PAIN, UNSPECIFIED Status: Acute Priority: High Current Visit: No (9) Anemia SNOMED Code(s): 814969298 ICD Code: D64.9 - ANEMIA, UNSPECIFIED Status: Chronic Priority: Medium Current Visit: No (10) Chronic renal disease SNOMED Code(s): 591647623 ICD Code: N18.9 - CHRONIC KIDNEY DISEASE, UNSPECIFIED Status: Chronic Priority: Medium Current Visit: No (11) Decreased appetite SNOMED Code(s): 12787101 ICD Code: R63.0 - ANOREXIA Status: Chronic Priority: High Current Visit : No Problem List Initiated/Reviewed/Updated: Yes Orders Last 24hrs: Active Orders 24 hr Category Date Time Status Patient Status [ADT] Routine ADT 10/25/17 11:54 Ordered Consult to Checker Cashier [CONS] Routine Cons 10/25/17 11:54 Ordered Consult to Home Health [CONS] Routine Cons 10/25/17 11:54 Ordered Consult to Infection Prevention [CONS] Routine Cons 10/25/17 11:54 Ordered Consult to Management Aide [CONS] Routine Cons 10/25/17 11:54 Ordered Consult to Wound Care Services [CONS] Routine Cons 10/25/17 11:54 Ordered Tuberculin, PPD [Aplisol] Med 10/25/17 11:54 Once 5 unit IDERM ONETIME ONE Resuscitation Status Routine Resus Stat 10/25/17 11:54 Ordered Assessment/Plan Comment:: Patient placed in comfort care. We will manage pain, and wound care. Continue current supportive care and care for family.
[2017-10-25] MEDS ORDERED: Sodium Chloride 0.9% 500 ML IV ONE (13:30)
[2017-10-25] MEDS: Morphine 2 MG/ML Syringe IVPUSH PRN ×2 (16:45→23:58)
[2017-10-25] MEDS: LORazepam 0.5 MG Tab PO PRN (17:19)
[2017-10-26] MEDS: Morphine 2 MG/ML Syringe IVPUSH PRN ×5 (02:11→19:51)
[2017-10-26] MEDS: Sodium Chloride 0.9% 1,000 ML IV SCH (07:42)
[2017-10-26] MEDS ORDERED: Amiodarone 200 MG Tab PO SCH (08:00)
[2017-10-26] MEDS: Metoprolol Tartrate 50 MG Tab PO SCH (08:35)
[2017-10-26] MEDS: Amiodarone 200 MG Tab PO SCH (10:40)
[2017-10-26] MEDS: Sodium Chloride 0.9% 10 ML Syringe FLUSH PRN (12:28)
[2017-10-26] MEDS: LORazepam 0.5 MG Tab PO PRN (13:41)
[2017-10-26] MEDS: LORazepam 2 MG/ML SDV IVPUSH PRN (18:36)
[2017-10-27] MEDS: Morphine 2 MG/ML Syringe IVPUSH PRN ×4 (03:40→20:17)
[2017-10-27] MEDS: LORazepam 2 MG/ML SDV IVPUSH PRN ×4 (03:40→19:17)
[2017-10-27] MEDS: Metoprolol Tartrate 50 MG Tab PO SCH (08:07)
[2017-10-27] MEDS: Sodium Chloride 0.9% 1,000 ML IV SCH (15:56)
[2017-10-27] MEDS: Amiodarone 200 MG Tab PO SCH (15:59)
[2017-10-27] MEDS ORDERED: Morphine 10 MG/ML Syringe ONE (18:47)
[2017-10-27] MEDS: Sodium Chloride 0.9% 10 ML Syringe FLUSH PRN ×2 (19:10→19:18)
[2017-10-27] MEDS ORDERED: Morphine 2 MG/ML Syringe IVPUSH PRN (22:15)
[2017-10-28] MEDS ORDERED: Morphine 10 MG/ML Syringe ONE (05:07)
[2017-10-28] MEDS: LORazepam 2 MG/ML SDV IVPUSH PRN ×5 (05:08→19:07)
[2017-10-28] MEDS: Morphine 10 MG/ML Syringe IVPUSH PRN ×2 (05:10→11:48)
[2017-10-28] MEDS: Metoprolol Tartrate 50 MG Tab PO SCH (07:51)
[2017-10-28] MEDS: Amiodarone 200 MG Tab PO SCH (11:48)
[2017-10-28] MEDS ORDERED: Morphine PF 150 MG/30 ML PCA Syringe IV SCH (14:15)
[2017-10-28] MEDS: Morphine PF 30 MG/30 ML PCA Vial IV SCH (15:30)
[2017-10-28] MEDS: Sodium Chloride 0.9% 10 ML Syringe FLUSH PRN ×2 (19:07→19:49)
[2017-10-28] MEDS: Sodium Chloride 0.9% 1,000 ML IV SCH (23:58)
[2017-10-29] MEDS: Morphine PF 30 MG/30 ML PCA Vial IV SCH ×5 (04:00→04:17)
[2017-10-29 07:28] VITALS: BP 137/69
--- NOTE | 2017-10-29 08:11 | PCM.PN ---
- General Info Date of Service: 10/29/17 Functional Status: Reports: Pain Controlled - Review of Systems General: Reports: Other (unable to obtain ROS, patient sleeping but responsive to touch but will moan and non verbal movements) - Patient Data Vitals - Most Recent: Last Vital Signs Temp 36.3 C 10/29/17 07:25 Pulse 65 10/29/17 07:25 Resp 19 10/29/17 07:25 BP 137/69 10/29/17 07:25 Pulse Ox 90 L 10/29/17 07:25 Weight - Most Recent: 77.196 kg Med Orders - Current: Current Medications Amiodarone HCl (Cordarone) 200 mg PO DAILY@1000 JACQUELYN Last Admin: 10/28/17 11:48 Dose: Not Given Sodium Chloride (Normal Saline) 1,000 mls @ 125 mls/hr IV ASDIRECTED JACQUELYN Last Admin: 10/28/17 23:58 Dose: 30 mls/hr Lorazepam (Ativan) 1 mg IVPUSH Q4H PRN PRN Reason: Agitation Last Admin: 10/28/17 19:07 Dose: 1 mg Metoprolol Tartrate (Lopressor) 50 mg PO DAILY JACQUELYN Last Admin: 10/28/17 07:51 Dose: Not Given Mexiletine HCl (Mexitil) 200 mg PO Q8HR [facility] Last Admin: 10/29/17 06:25 Dose: Not Given Morphine Sulfate (Morphine Swing Ride Operator 30 Mg In 30 Ml) 0 mg IV ASDIRECTED JACQUELYN; Protocol Last Admin: 10/29/17 04:00 Dose: 30 mg Sodium Chloride (Saline Flush) 10 ml FLUSH ASDIRECTED PRN PRN Reason: Keep Vein Open Last Admin: 10/28/17 19:49 Dose: 10 ml Discontinued Medications Amiodarone HCl (Cordarone) 200 mg PO DAILY [facility] Last Admin: 10/26/17 09:40 Dose: Not Given Sodium Chloride (Normal Saline) 500 mls @ 30 mls/hr IV BOLUS ONE Stop: 10/26/17 06:09 Last Admin: 10/25/17 14:27 Dose: 30 mls/hr Lorazepam (Ativan) 0.5 mg PO Q6H PRN PRN Reason: Anxiety Last Admin: 10/26/17 13:41 Dose: 0.5 mg Morphine Sulfate (Morphine) 2 mg IVPUSH Q1H PRN PRN Reason: Pain Last Admin: 10/26/17 13:00 Dose: 2 mg Morphine Sulfate (Morphine) 4 mg IVPUSH Q1H PRN PRN Reason: Pain Last Admin: 10/27/17 20:17 Dose: 4 mg Morphine Sulfate (Morphine) Confirm Administered Dose 10 mg .ROUTE .STK-MED ONE Stop: 10/27/17 18:48 Last Admin: 10/28/17 08:54 Dose: Not Given Morphine Sulfate (Morphine) 10 mg IVPUSH Q1H PRN PRN Reason: Pain Morphine Sulfate (Morphine) 4 mg IVPUSH Q1H PRN PRN Reason: Pain Last Admin: 10/28/17 11:48 Dose: 4 mg Morphine Sulfate (Morphine) Confirm Administered Dose 10 mg .ROUTE .STK-MED ONE Stop: 10/28/17 05:08 Last Admin: 10/28/17 08:54 Dose: Not Given Morphine Sulfate (Morphine Swing Ride Operator 150 Mg In 30 Ml) 2 mg IV Q1H JACQUELYN; Protocol Last Admin: 10/29/17 04:15 Dose: Not Given Morphine Sulfate (Morphine Swing Ride Operator 30 Mg In 30 Ml) 2 mg IV Q1H JACQUELYN; Protocol Last Admin: 10/29/17 04:17 Dose: Not Given Tuberculin PPD (Aplisol) 5 unit IDERM ONETIME ONE Stop: 10/25/17 11:55 Last Admin: 10/25/17 14:28 Dose: Not Given - Exam General: Obtunded - Problem List & Annotations (1) Palliative care patient SNOMED Code(s): 577242351 Code(s): Z51.5 - ENCOUNTER FOR PALLIATIVE CARE Status: Acute Priority: High Current Visit: Yes (2) Debility SNOMED Code(s): 13275895 Code(s): R53.81 - OTHER MALAISE Status: Acute Current Visit: No (3) Dementia SNOMED Code(s): 21362155 Code(s): F03.90 - UNSPECIFIED DEMENTIA WITHOUT BEHAVIORAL DISTURBANCE Status: Chronic Current Visit: Yes (4) Low testosterone SNOMED Code(s): 065141430 Code(s): R79.89 - OTHER SPECIFIED ABNORMAL FINDINGS OF BLOOD CHEMISTRY Status: Acute Current Visit: No (5) Severe muscle deconditioning SNOMED Code(s): 016917026 Code(s): R29.898 - OTH SYMPTOMS AND SIGNS INVOLVING THE MUSCULOSKELETAL SYSTEM Status: Acute Current Visit: No (6) Weight loss, non-intentional SNOMED Code(s): 986842611 Code(s): R63.4 - ABNORMAL WEIGHT LOSS Status: Acute Current Visit: No (7) Broken skin SNOMED Code(s): 325724238 Code(s): R23.8 - OTHER SKIN CHANGES Status: Acute Current Visit: No (8) Pain management SNOMED Code(s): 738719099 Code(s): R52 - PAIN, UNSPECIFIED Status: Acute Priority: High Current Visit: No (9) Anemia SNOMED Code(s): 887574091 Code(s): D64.9 - ANEMIA, UNSPECIFIED Status: Chronic Priority: Medium Current Visit: No (10) Chronic renal disease SNOMED Code(s): 829568588 Code(s): N18.9 - CHRONIC KIDNEY DISEASE, UNSPECIFIED Status: Chronic Priority: Medium Current Visit: No (11) Decreased appetite SNOMED Code(s): 24074123 Code(s): R63.0 - ANOREXIA Status: Chronic Priority: High Current Visit : No - Problem List Review Problem List Initiated/Reviewed/Updated: Yes - My Orders Last 24 Hours: My Active Orders 10/28/17 10:00 Consult for Pacemaker Interrogation [CONS] Routine 10/28/17 22:24 Morphine PF [Morphine IT BUSINESS ANALYST 30 MG in 30 ML] See Protocol IV ASDIRECTED - Plan Plan:: Patient placed in comfort care. We will manage pain, and wound care. Continue current supportive care and care for family. 10/29/17 We will continue comfort cares and palliative care. Patient's defibrillator was turned off by the loom technician Sunday after discussion and agreement with family members. A consensus was obtained prior to any action. We will monitor pain and continue pain management. IT BUSINESS ANALYST pump started Sunday.
[2017-10-29] MEDS: Metoprolol Tartrate 50 MG Tab PO SCH (09:34)
[2017-10-29] MEDS: Amiodarone 200 MG Tab PO SCH (09:58)
[2017-10-30] MEDS: Morphine PF 30 MG/30 ML PCA Vial IV SCH ×2 (02:06→13:34)
[2017-10-30] MEDS: Sodium Chloride 0.9% 500 ML IV PRN (08:44)
[2017-10-30] MEDS ORDERED: Scopolamine 1.5 MG Transdermal Patch ONE (10:51)
[2017-10-30] MEDS: Scopolamine 1.5 MG Transdermal Patch TOP SCH (10:53)
[2017-10-30] MEDS: Atropine 1% Ophth Soln 5 ML Bottle EYEBOTH PRN ×2 (10:57→16:32)
[2017-10-30] MEDS ORDERED: Acetaminophen 650 MG Supp RECTAL PRN (15:44)
[2017-10-31] MEDS: Sodium Chloride 0.9% 500 ML IV PRN ×2 (03:07→18:11)
[2017-10-31] MEDS: Morphine PF 30 MG/30 ML PCA Vial IV SCH (17:18)
[2017-11-01] MEDS: Morphine PF 30 MG/30 ML PCA Vial IV SCH (08:24)
[2017-11-01] MEDS ORDERED: Morphine PF 30 MG/30 ML PCA Vial IV SCH (08:31)
[2017-11-01] MEDS: Sodium Chloride 0.9% 500 ML IV PRN (10:31)
[2017-11-02] MEDS: Sodium Chloride 0.9% 500 ML IV PRN (04:56)
[2017-11-02] MEDS: Scopolamine 1.5 MG Transdermal Patch TOP SCH (10:00)
--- NOTE | 2017-11-08 12:02 | PCM.DCSUM1 ---
Discharge Summary - Discharge Data Discharge Date: 11/02/17 Discharge Disposition: 20 Condition: - Discharge Diagnosis/Problem(s) (1) Palliative care patient SNOMED Code(s): 316533613 ICD Code: Z51.5 - ENCOUNTER FOR PALLIATIVE CARE Status: Acute Priority: High (2) Debility SNOMED Code(s): 48069633 ICD Code: R53.81 - OTHER MALAISE Status: Resolved (3) Dementia SNOMED Code(s): 38283038 ICD Code: F03.90 - UNSPECIFIED DEMENTIA WITHOUT BEHAVIORAL DISTURBANCE Status: Resolved (4) Low testosterone SNOMED Code(s): 936695231 ICD Code: R79.89 - OTHER SPECIFIED ABNORMAL FINDINGS OF BLOOD CHEMISTRY Status: Resolved (5) Severe muscle deconditioning SNOMED Code(s): 232870179 ICD Code: R29.898 - OTH SYMPTOMS AND SIGNS INVOLVING THE MUSCULOSKELETAL SYSTEM Status: Resolved (6) Weight loss, non-intentional SNOMED Code(s): 874726871 ICD Code: R63.4 - ABNORMAL WEIGHT LOSS Status: Resolved (7) Broken skin SNOMED Code(s): 407855103 ICD Code: R23.8 - OTHER SKIN CHANGES Status: Resolved (8) Pain management SNOMED Code(s): 623407089 ICD Code: R52 - PAIN, UNSPECIFIED Status: Resolved Priority: High (9) Anemia SNOMED Code(s): 871528172 ICD Code: D64.9 - ANEMIA, UNSPECIFIED Status: Resolved Priority: Medium (10) Chronic renal disease SNOMED Code(s): 449888092 ICD Code: N18.9 - CHRONIC KIDNEY DISEASE, UNSPECIFIED Status: Resolved Priority: Medium (11) Decreased appetite SNOMED Code(s): 35705750 ICD Code: R63.0 - ANOREXIA Status: Resolved Priority: High - Patient Summary/Data Consults: Consultations 10/25/17 11:54 Consult to Infection Prevention [CONS] Routine Comment: Physician Instructions: Consult to Mental Health Clinician [CONS] Routine Comment: Physician Instructions: 10/28/17 10:00 Consult for Pacemaker Interrogation [CONS] Routine Reason for Consult: patient is on comfort cares Special Instructions: Deactive the AICD Person Notified: Huseyin Mora Date Notified: 10/27/17 Time Notified: 21:45 - Discharge Plan Home Medications: Home Meds Metoprolol Tartrate [Lopressor] 50 mg PO DAILY 10/08/14 [History] Amiodarone [Cordarone] 200 mg PO DAILY 09/12/17 [History] Mexiletine HCl 200 mg PO Q8HR 09/28/17 [History] LORazepam [Ativan] 0.5 mg PO Q6H PRN tablet 10/18/17 [Rx] Morphine 2 mg IVPUSH Q1H PRN syringe 10/25/17 [Rx] - Discharge Summary/Plan Comment Discharge Summary/Plan Comment: Patient at 1957 hrs 11/02/17. Family notified and home arranged. - Patient Data Vitals - Most Recent: Last Vital Signs Temp 36.6 C 11/01/17 08:26 Pulse 82 11/02/17 07:37 Resp 16 11/02/17 07:37 BP 137/69 10/29/17 07:25 Pulse Ox 92 L 11/01/17 08:26 Weight - Most Recent: 77.196 kg Med Orders - Current: Current Medications Discontinued Medications Acetaminophen (Tylenol) 650 mg RECTAL Q4H PRN PRN Reason: Fever Amiodarone HCl (Cordarone) 200 mg PO DAILY [facility] Last Admin: 10/26/17 09:40 Dose: Not Given Amiodarone HCl (Cordarone) 200 mg PO DAILY@1000 JACQUELYN Last Admin: 10/29/17 09:58 Dose: Not Given Atropine Sulfate (Isopto Atropine 1% Oph Soln) 0 ml EYEBOTH 6XDAY PRN PRN Reason: Agitation Last Admin: 10/30/17 16:32 Dose: 2 drop Sodium Chloride (Normal Saline) 500 mls @ 30 mls/hr IV BOLUS ONE Stop: 10/26/17 06:09 Last Admin: 10/25/17 14:27 Dose: 30 mls/hr Sodium Chloride (Normal Saline) 1,000 mls @ 125 mls/hr IV ASDIRECTED JACQUELYN Last Admin: 10/28/17 23:58 Dose: 30 mls/hr Sodium Chloride (Normal Saline) 500 mls @ 30 mls/hr IV ASDIRECTED PRN PRN Reason: FOR EXPLORATION GEOLOGIST Last Admin: 11/02/17 04:56 Dose: 30 mls/hr Lorazepam (Ativan) 0.5 mg PO Q6H PRN PRN Reason: Anxiety Last Admin: 10/26/17 13:41 Dose: 0.5 mg Lorazepam (Ativan) 1 mg IVPUSH Q4H PRN PRN Reason: Agitation Last Admin: 10/28/17 19:07 Dose: 1 mg Metoprolol Tartrate (Lopressor) 50 mg PO DAILY JACQUELYN Last Admin: 10/29/17 09:34 Dose: Not Given Mexiletine HCl (Mexitil) 200 mg PO Q8HR JACQUELYN Last Admin: 10/30/17 06:22 Dose: Not Given Morphine Sulfate (Morphine) 2 mg IVPUSH Q1H PRN PRN Reason: Pain Last Admin: 10/26/17 13:00 Dose: 2 mg Morphine Sulfate (Morphine) 4 mg IVPUSH Q1H PRN PRN Reason: Pain Last Admin: 10/27/17 20:17 Dose: 4 mg Morphine Sulfate (Morphine) Confirm Administered Dose 10 mg .ROUTE .STK-MED ONE Stop: 10/27/17 18:48 Last Admin: 10/28/17 08:54 Dose: Not Given Morphine Sulfate (Morphine) 10 mg IVPUSH Q1H PRN PRN Reason: Pain Morphine Sulfate (Morphine) 4 mg IVPUSH Q1H PRN PRN Reason: Pain Last Admin: 10/28/17 11:48 Dose: 4 mg Morphine Sulfate (Morphine) Confirm Administered Dose 10 mg .ROUTE .STK-MED ONE Stop: 10/28/17 05:08 Last Admin: 10/28/17 08:54 Dose: Not Given Morphine Sulfate (Morphine Industrial Relations Specialist 150 Mg In 30 Ml) 2 mg IV Q1H JACQUELYN; Protocol Last Admin: 10/29/17 04:15 Dose: Not Given Morphine Sulfate (Morphine Industrial Relations Specialist 30 Mg In 30 Ml) 2 mg IV Q1H JACQUELYN; Protocol Last Admin: 10/29/17 04:17 Dose: Not Given Morphine Sulfate (Morphine Industrial Relations Specialist 30 Mg In 30 Ml) 0 mg IV ASDIRECTED JACQUELYN; Protocol Last Admin: 11/01/17 08:24 Dose: 30 mg Morphine Sulfate (Morphine Industrial Relations Specialist 30 Mg In 30 Ml) 30 mg IV ASDIRECTED JACQUELYN; Protocol Scopolamine (Transderm-Scop) 1.5 mg TOP Q72H JACQUELYN Last Admin: 11/02/17 10:00 Dose: 1.5 mg Scopolamine (Transderm-Scop) Confirm Administered Dose 1.5 mg .ROUTE .STK-MED ONE Stop: 10/30/17 10:52 Last Admin: 10/30/17 10:53 Dose: Not Given Sodium Chloride (Saline Flush) 10 ml FLUSH ASDIRECTED PRN PRN Reason: Keep Vein Open Last Admin: 10/28/17 19:49 Dose: 10 ml Tuberculin PPD (Aplisol) 5 unit IDERM ONETIME ONE Stop: 10/25/17 11:55 Last Admin: 10/25/17 14:28 Dose: Not Given
== END 2017-11-02 19:57 | disposition expired | DRG 951 ==
LOC: UNDOADMIN 10-25 10:46 → LB.MS 10-25 10:46
PROVIDERS: ADMIT Family Medicine; ATTEND Family Medicine
DX: Z51.5 Encounter for palliative care (principal); I13.0 Hypertensive heart and chronic kidney disease with heart failure and stage 1 through stage 4 chronic kidney disease, or unspecified chronic kidney disease; R53.81 Other malaise; R53.1 Weakness; F03.90 Unspecified dementia, unspecified severity, without behavioral disturbance, psychotic disturbance, mood disturbance, and anxiety; R52 Pain, unspecified; I50.9 Heart failure, unspecified; N18.9 Chronic kidney disease, unspecified; M06.9 Rheumatoid arthritis, unspecified; F32.9 Major depressive disorder, single episode, unspecified; R63.0 Anorexia; D64.9 Anemia, unspecified; R23.8 Other skin changes; R63.4 Abnormal weight loss; R29.898 Other symptoms and signs involving the musculoskeletal system; R79.89 Other specified abnormal findings of blood chemistry; Z87.440 Personal history of urinary (tract) infections; Z95.0 Presence of cardiac pacemaker; H54.7 Unspecified visual loss; Z79.899 Other long term (current) drug therapy; Z95.810 Presence of automatic (implantable) cardiac defibrillator
CPT/HCPCS: A9270-GY; J2060; J2270; J2274; J7030; J7040; J7050